=== PATIENT | female | born 1955 | race Caucasian/White ===

== ENCOUNTER → 2017-08-28 18:00 | Outpatient (REF) | payer OTHER, SELFPAY | LOC: LAB 18:00 | PROVIDERS: Visit Provider Podiatrist | DX: B35.1 Tinea unguium (principal) | CPT/HCPCS: 87102; 87206; 87220 ==

== ENCOUNTER → 2018-08-13 10:46 | Outpatient (POV) | payer OTHER, SELFPAY | PROVIDERS: Visit Provider Dermatology | DX: Z00.00 Encounter for general adult medical examination without abnormal findings (principal) ==

== ENCOUNTER → 2021-01-28 12:13 | Outpatient (CLI) | payer MEDICARE, SELFPAY | PROVIDERS: Visit Provider Internal Medicine Gastroenterology | DX: Z01.812 Encounter for preprocedural laboratory examination (principal); Z20.822 Contact with and (suspected) exposure to COVID-19; Z12.11 Encounter for screening for malignant neoplasm of colon | CPT/HCPCS: U0003 ==

== ENCOUNTER 2021-01-31 08:20 | Day surgery (SDC) | payer MEDICARE, SELFPAY ==
[2021-01-26 09:29] VITALS: BMI 32.9
[2021-01-31 08:47] VITALS: BP 147/69; PULSE 72; RESP 16; TEMP 36.6; O2SAT 96
--- NOTE | 2021-01-31 09:01 | P.PN_ITS ---
[facility] Anesthesia Checklist - Patient Identification Patient Identification: Arm Band - Structural Data Admitted From: Home Planned Operative Procedure/s: Colonoscopy Consent for Planned Operative Procedure(s) Verified: Yes - NPO Status Verified Time NPO: 00:00 - Airway Assessment C-Spine Mobility Assessed: Yes TMJ Mobility Assessed: Yes Dentition: Good Dentition - Neurological Assessment Level of Consciousness: Awake Hx Seizures: No Numbness or tingling in extremities: No - Anesthesia Plan Anesthesia Risk discussed: Yes Anesthesia Plan: Verified ASA Class: II Anesthesia Type: MAC [facility] History I have reviewed the patient's past medical history: Yes Medical History: Reports:: Gastroesophageal Reflux Disease(GERD), Hypertension Denies:: Anxiety, Asthma, Cancer, Chronic Obstructive Pulmonary Disease (COPD), Depression, Diabetes Mellitus Type 1, Diabetes Mellitus Type 2, Hyperlipidemia, Internal Pacemaker, MRSA, Renal Disease, Renal Insufficiency *Have you ever received a pneumonia vaccine?: No *Have you received a flu vaccine this season?: Yes Other Medical History: Reports: Arthritis. Denies: Hypothyroidism, Sinus Problems Anesthesia experience/problems:: None Laterality Cases: Left: Cataract, Bilateral: Arthroscopy Knee, Carpal Tunnel Release Other Surgeries: Yes: Tubal Ligation. No: Pacemaker Amputation: No Fractures: No - *Social History Smoking Status: Never smoker Alcohol Intake: never Alcohol Intake Frequency:: holidays/special occasions only Substance Use Type: denies use *Occupational Status:: retired Housing: house *Travel in the last 8 weeks: None - Psychiatric History Pschychiatric History:: Denies:: Anxiety, Depression Family Hx:: No significant family history
--- NOTE | 2021-01-31 09:46 | HMH.PROC ---
[facility] Procedure Note Procedure Note:: Colonoscopy Procedure Report: Colonoscopy with cold snare polypectomy Endoscopist: Adolfo Baker II, MD Referring physician: William Kelsey MD Date of Procedure: January 31, 2021 Equipment: Olympus 190 variable stiffness pediatric colonoscope Sedation: MAC sedation Indication: Mrs. Bedoya is a 65-year-old female who is here for screening/surveillance colonoscopy. The patient's father had advanced colon cancer in his early to mid seventies. The patient does report some chronic constipation/obstipation for which she takes stimulant laxatives (Dulcolax). She does get some right flank pain with this. She reports no change in bowel habits. She reports no rectal bleeding or weight loss. She does get some bloating. She also has some lower back pain and has had L4-L5 surgery. She had a prior bladder sling. She did have a normal colonoscopy with me in August 2003. She had a subsequent colonoscopy (Dr. Benito Godwin) in February 2012 that was also normal except for some diverticulosis. Procedure: Prior to the procedure, a history and physical exam was performed, and patient's medications and allergies were reviewed. The risks, benefits and alternatives of the sedation and procedure were discussed with the patient. All questions were answered and informed consent was obtained. The patient was brought to the procedure room. Patient identification and proposed procedure were verified by the physician and the nurse. The patient was placed in a left lateral decubitus position and the scope was passed under direct vision. Throughout the procedure, the patient's blood pressure, pulse, and oxygen saturations were monitored continuously. The colonoscopy was accomplished without difficulty. The patient tolerated the procedure well. Findings: On digital rectal examination there was normal rectal tone. There were no external hemorrhoids. The patient does have an anterior rectocele. The colonoscope was introduced through the anal canal to the rectum and advanced to the cecum. The ileocecal valve and appendiceal orifice were identified. The scope was advanced a short distance into the ileum which appeared grossly normal. The scope was then withdrawn into the colon. There were 3 colon polyps (ascending x2 (3 and 4 mm) and rectosigmoid x1 (4 mm)) which were removed via cold snare polypectomy. The remaining cecum, ascending and transverse colon and mucosa were grossly normal. There were scattered diverticuli throughout the descending and sigmoid colon (LEFT colon). The rectum itself was normal. Upon retroflexion within the rectum there were grade 1-2 internal hemorrhoids. The preparation was excellent throughout with [place] Preparation Score of 9. The cecal time was 12 minutes. Impression: 1. Colonic polyps x3 2. Left-sided diverticulosis 3. Grade 1-2 internal hemorrhoids 4. Anterior rectocele Plan: I will follow up the polyp pathology and recommend repeat colonoscopy again in 5-7 years based upon the polyp histology. I do feel that the patient most likely has outlet constipation/pelvic floor syndrome. I would continue laxative therapy and consider pelvic floor physical therapy.
[2021-01-31 09:50] VITALS: BP 106/61; PULSE 68; RESP 12; TEMP 36.9; O2SAT 92
[2021-01-31 10:00] VITALS: BP 116/71; PULSE 67; RESP 16; O2SAT 94
[2021-01-31 10:10] VITALS: BP 142/64; PULSE 75; RESP 16; O2SAT 96
[2021-01-31 10:20] VITALS: BP 141/93; PULSE 68; RESP 16; TEMP 36.9; O2SAT 98
[2021-01-31 15:14] VITALS: O2SAT 97
== END 2021-01-31 10:21 | disposition home or self-care (01) ==
LOC: OUTP 08:23
PROVIDERS: PCP Family Medicine; Visit Provider Internal Medicine Gastroenterology
PROC: 0DJD8ZZ Inspection of Lower Intestinal Tract, Via Natural or Artificial Opening Endoscopic (ICD-10-PCS; CPT 45378; principal; 2021-01-31 09:30)
DX: Z12.11 Encounter for screening for malignant neoplasm of colon (principal); N81.6 Rectocele; K63.5 Polyp of colon; K57.30 Diverticulosis of large intestine without perforation or abscess without bleeding; K64.0 First degree hemorrhoids; Z80.0 Family history of malignant neoplasm of digestive organs; I10 Essential (primary) hypertension; K21.9 Gastro-esophageal reflux disease without esophagitis; E03.9 Hypothyroidism, unspecified; M19.90 Unspecified osteoarthritis, unspecified site; Z88.1 Allergy status to other antibiotic agents; Z79.899 Other long term (current) drug therapy
CPT/HCPCS: 45385; 88305

== ENCOUNTER → 2021-03-14 09:48 | Outpatient (CLI) | payer MEDICARE, SELFPAY ==
--- NOTE | 2021-03-14 09:51 | MR_ITS ---
PROCEDURE: MR LUMBAR SPINE WO CON CLINICAL INDICATION: SPONDYLOSIS OF LUMBAR REGION Low back pain radiating into the right leg COMPARISON: CR LS5 LUMBAR SPINE 5 VIEWS from 09/26/2016 TECHNIQUE: Standard multiplanar multiecho sequences are performed without contrast. 3-D MIP and myelographic images are also rendered and reviewed FINDINGS: There is normal alignment. The spinal cord ends at the L2 level. L1-L2: Small anterior osteophytes with small anterior disc bulge. Minimal facet hypertrophic change. L2-L3: Mild facet hypertrophic change. L3-L4: Mild facet hypertrophic change right greater than left with bilateral lateral recess narrowing right greater than left. Borderline canal stenosis at this level. L4-5: Facet hypertrophy. With bilateral lateral recess narrowing. There is a small right foraminal disc osteophyte complex causing right-sided foraminal narrowing abutting the exiting L4 nerve root. L5-S1: Moderate facet hypertrophic change left greater than right with a small amount fluid in the left-sided facet joint with moderate left foraminal narrowing IMPRESSION: Multilevel lumbar spondylosis. Please see above for detailed description at each level No extruded herniated disc. Dictated by: Miguel Angel Matos MD 03/15/2021 09:17 Miguel Angel Matos MD in [place] 03/15/2021 09:17
== END ==
PROVIDERS: PCP Family Medicine; Visit Provider Family Medicine
DX: M47.816 Spondylosis without myelopathy or radiculopathy, lumbar region (principal)
CPT/HCPCS: 72148; 76376

== ENCOUNTER → 2021-06-06 10:50 | Outpatient (CLI) | payer MEDICARE, SELFPAY | PROVIDERS: Visit Provider Pain Medicine Interventional Pain Medicine | DX: Z01.812 Encounter for preprocedural laboratory examination (principal); Z11.52 Encounter for screening for COVID-19 | CPT/HCPCS: C9803; U0003; U0005 ==

== ENCOUNTER 2021-08-23 10:00 | Outpatient (RCR) | payer MEDICARE, SELFPAY | END 2021-08-23 10:05 | disposition home or self-care (01) | LOC: PT 10:00 | PROVIDERS: PCP Family Medicine; Visit Provider Anesthesiology Pain Medicine | DX: M54.50 Low back pain, unspecified (principal) | CPT/HCPCS: 97110; 97163 ==

== ENCOUNTER 2021-11-24 09:38 | Emergency (ER) | payer MEDICARE, SELFPAY ==
[2021-11-24 10:15] VITALS: BP 153/75; PULSE 65; RESP 18; TEMP 37; O2SAT 97; BMI 28.3
--- NOTE | 2021-11-24 10:43 | HMH.EDUTC ---
[facility] Disposition Clinical Impression: Vertigo Sinusitis Qualifiers: Sinusitis location: unspecified location Chronicity: unspecified Qualified Code(s): J32.9 - Chronic sinusitis, unspecified Disposition: Home, Self-Care Condition on Discharge: Good Instructions: Sinusitis, DI for Sinusitis, DI for Vertigo, Meclizine Additional Instructions: Make slow and steady movements, dangle feet and then stand slowly Take medication as prescribed Follow up immediately if no improvement or any worsening of symptoms Straight to ER if any life threatening symptoms, confusion or headache Return if needed Prescriptions: Meclizine HCl [Antivert 12.5mg tablet] 12.5 mg PO BID PRN #20 tab PRN Reason: Vertigo Transmission Status: Received by [id number] methylPREDNISolone [Medrol 4mg tab] 4 mg PO DIRECTED #21 tab Transmission Status: Received by [id number] Azithromycin [Z-Leopoldo 250mg Tab] 250 mg PO DIRECTED #6 tab Transmission Status: Received by [id number] Referrals: Andrey Kelsey MD [Primary Care Provider] - As needed Time of Disposition: 11:28 Medical Decision Making - Vitor Inquiry Pt receiving controlled substance: No Vitor was queried for this patient: No Vital Signs: 11/24/21 10:15 11/24/21 11:13 Temperature 98.6 F 98.6 F Temperature Source Oral Pulse Rate 65 Pulse Rate [Left Brachial] 65 Respiratory Rate 18 18 Blood Pressure 153/75 H Blood Pressure [Left Arm] 153/75 H Blood Pressure Mean [Left Arm] 101 Blood Pressure Source [Left Arm] Automatic Cuff Blood Pressure Position [Left Arm] Sitting 02 Sat by Pulse Oximetry 97 Oxygen Delivery Method Room Air Orders (Tests/Meds): ED MEDICATIONS Discontinued Medications Generic Name Dose Route Start Last Admin Trade Name Freq PRN Reason Stop Dose Admin Meclizine HCl 12.5 mg 11/24/21 10:46 11/24/21 10:52 Meclizine 12.5mg Tablet PO 11/24/21 10:47 12.5 mg ONCE ONE Administration Medical Decision Narrative: Discussed with patient about transfer to the ED for further work up and Ct Scan of head if needed and patient declined States that she wanted to try medication and see if that helps and she will return if no improvement Medication discussed and dosed per pharmacy Patient states that dizziness is much improved after medication and almost gone Patient verbalized understanding of strict return instructions [facility] HPI - General Stated complaint: dizziness, nausea Time Seen by Provider: 11/24/21 10:43 Mode of Arrival: Ambulatory Source of Information: Patient Limitations: No Limitations Description of Symptoms (Recalled from Triage Doc. by RN): PATIENT C/O DIZZINESS THAT HAS BEEN GOING ON FOR 3 DAYS. DENIES ANY HISTORY OF DIZZINESS. ALSO C/O WATERY EYES AND STATES SHE THOUGHT HER LEFT EAR WAS GOING TO HURT BUT IT NEVER DID. PATIENT VERY UNSTEADY WITH WALKING AT THIS TIME HEENT Symptoms (Recalled from RN notes): Yes Resp Symptoms (Recalled from RN notes): No Skin Symptoms (Recalled from RN notes): No MS Symptoms (Recalled from RN notes): No Functional Status (Recalled from RN notes): WNL - History of Present Illness Provider Complaint: Patient states that she has been having sinus congestion and pressure and pressure in her left ear State that she woke up about 3 days ago and as she was getting out of bed the room started spinning States that she felt like when she would move the room would spin around her and she would stagger States that after a little while it got better States that she took some sinus medication yesterday and she felt better but this morning she woke up feeling dizzy again and she hasnt taken anything Denies changes in vision denies headache - Related Data Home Medications Medication Instructions Recorded Confirmed bisoprolol 5 1 tab PO DAILY 90 Days tab 08/28/17 11/24/21 mg-hydrochlorothiazide 6.25 mg tablet Celecoxib 200 mg PO DAILY 01/26/21 11/24/21
[2021-11-24 11:13] VITALS: BP 153/75; PULSE 65; RESP 18; TEMP 37; O2SAT 97
== END 2021-11-24 11:33 | disposition home or self-care (01) ==
PROVIDERS: Emergency Provider Nurse Practitioner; PCP Family Medicine
DX: R42 Dizziness and giddiness (principal); J32.9 Chronic sinusitis, unspecified; Z79.899 Other long term (current) drug therapy; Z88.1 Allergy status to other antibiotic agents; Z88.8 Allergy status to other drugs, medicaments and biological substances
CPT/HCPCS: 99212; G0463

== ENCOUNTER → 2022-01-03 10:49 | Outpatient (CLI) | payer MEDICARE, SELFPAY ==
[2022-01-03 12:02] LABS: Chol/HDL Ratio 4.1 (1-3.5); Cholesterol 222 mg/dl (140-200); HDL Cholesterol 54 mg/dl (40-60); Triglycerides 142 mg/dl (30-150); VLDL Cholesterol 28 mg/dL (0-40)
[2022-01-03 12:13] LABS: Direct LDL Cholesterol 136.35 mg/dL (100-129)
[2022-01-04 09:36] LABS: Estradiol <5.0 pg/mL (.); FSH 57.1 mIU/mL (.)
[2022-01-07 00:10] LABS: Testosterone, Total, LC/MS 30.2 ng/dL (7.0-40.0); Testosterone,Free <0.2 pg/mL (0.0-4.2)
== END ==
PROVIDERS: PCP Family Medicine; Visit Provider Obstetrics & Gynecology
DX: N95.1 Menopausal and female climacteric states (principal); Z79.890 Hormone replacement therapy; Z79.899 Other long term (current) drug therapy
CPT/HCPCS: 36415; 80061; 82670; 83001; 84402; 84403; 86316

== ENCOUNTER → 2022-01-09 13:10 | Outpatient (CLI) | payer MEDICARE, OTHER, SELFPAY ==
--- NOTE | 2022-01-09 13:12 | US_ITS ---
FINAL REPORT TECHNIQUE: Transabdominal and transvaginal images of the pelvis were obtained. CLINICAL HISTORY: Postmenopausal bleeding FINDINGS: The uterus is normal in size. There is an 8 mm hyperechoic structure in the endometrium or inner myometrium that could represent an endometrial polyp or fibroid. The right ovary is unremarkable. The left ovary is unremarkable. There is no significant free fluid. IMPRESSION: 8 mm endometrial polyp versus fibroid. Reviewed, Interpreted and Dictated by Benito Bass III, MD Transcribed by Danyel Goldstein Authenticated and [facility]
== END ==
PROVIDERS: PCP Family Medicine; Visit Provider Obstetrics & Gynecology
DX: N95.0 Postmenopausal bleeding (principal)
CPT/HCPCS: 76830

== ENCOUNTER → 2022-01-18 14:35 | Outpatient (CLI) | payer MEDICARE, OTHER, SELFPAY ==
--- NOTE | 2022-01-18 14:41 | XR_ITS ---
PROCEDURE INFORMATION: Exam: XR Chest Exam date and time: 01/18/2022 2:47 PM Age: 66 years old Clinical indication: Screening exam; Pre-operative exam; Cardiovascular screening; Additional info: Myomectomy, post menopausal bleeding. TECHNIQUE: Imaging protocol: Radiologic exam of the chest. Views: 2 views. COMPARISON: CR CS5 CERVICAL SPINE 4 OR 5 VIEWS 09/26/2016 11:18 AM FINDINGS: Lungs: Scarring and calcified granulomas appear present in the lung bases. Pleural thickening of the lung apices. Pleural spaces: Unremarkable. No pleural effusion. No pneumothorax. Heart/Mediastinum: Unremarkable. No cardiomegaly. Bones/joints: Degenerative spondylosis and rotoscoliosis of thoracic spine. IMPRESSION: 1. Scarring and calcified granulomas within the lung bases. 2. No acute cardiopulmonary process is identified.
== END ==
PROVIDERS: PCP Obstetrics & Gynecology; Visit Provider Nurse Practitioner Family
DX: Z01.810 Encounter for preprocedural cardiovascular examination (principal)
CPT/HCPCS: 71046

== ENCOUNTER → 2022-12-05 12:47 | Outpatient (CLI) | payer MEDICARE, SELFPAY ==
--- NOTE | 2022-12-05 12:53 | XR_ITS ---
FINAL REPORT CLINICAL HISTORY: rt shoulder pain/burning, fell may 2022, shoulder catches FINDINGS: 3 views of the right shoulder were obtained. There is no acute fracture or dislocation. There are mild degenerative changes of the acromioclavicular and glenohumeral joints. There are no soft tissue abnormalities. IMPRESSION: No acute process. Reviewed, Interpreted and Dictated by Benito Bass III, MD Transcribed by Danyel Goldstein Authenticated and [facility]
== END ==
PROVIDERS: PCP Family Medicine; Visit Provider Orthopaedic Surgery
DX: M25.511 Pain in right shoulder (principal)
CPT/HCPCS: 73030

== ENCOUNTER 2023-10-25 08:38 | Outpatient (CLI) | payer MEDICARE, SELFPAY ==
--- NOTE | 2023-10-25 08:45 | XR_ITS ---
FINAL REPORT CLINICAL HISTORY: POST MENOPAUSAL COMPARISON: None FINDINGS: Using L1-4, the bone mineral density of the spine is 1.204 g/cm2, corresponding to T-score of 1.4. Using the left hip, the bone mineral density of the femoral neck is 0.902 g/cm2, corresponding to a T-score of -1.0. Using the right hip, the bone mineral density of the femoral neck is 0.822 g/cm?, corresponding to a T-score of -0.2. NOTE: T-score: Standard deviation compared with peak bone mass of young adult mean. *Following the recommendations of the International Society of Bone densitometry, classification of hip BMD is based on the lower of two T-scores; total hip or femoral neck. IMPRESSION: Normal bone mineral density of the lumbar spine and the right hip. Diminished bone mineral density of the left hip consistent with osteopenia. Reviewed, Interpreted and Dictated by Morales Snow MD Transcribed by Dolly Luis Authenticated and [facility]
--- NOTE | 2023-10-25 09:14 | XR_ITS ---
FINAL REPORT CLINICAL HISTORY: Left knee pain COMPARISON: None FINDINGS: LEFT KNEE 3 views of the left knee were obtained. There is no acute fracture or dislocation. There is moderate to severe tricompartmental degenerative change. There is no joint effusion. Soft tissues are unremarkable. IMPRESSION: Moderate to severe degenerative changes without acute bony abnormality. Reviewed, Interpreted and Dictated by Morales Snow MD Transcribed by Dayana Quevedo Authenticated and . [facility]
--- NOTE | 2023-10-25 09:14 | XR_ITS ---
FINAL REPORT CLINICAL HISTORY: Right 9 knee pain COMPARISON: None FINDINGS: RIGHT KNEE 3 views of the right knee were obtained. There is no acute fracture or dislocation. There is moderate to severe tricompartmental degenerative change. There is no joint effusion. Soft tissues are unremarkable. IMPRESSION: Moderate to severe degenerative changes without acute bony abnormality. Reviewed, Interpreted and Dictated by Morales Snow MD Transcribed by Dayana Quevedo Authenticated and [facility]
== END 2023-10-25 23:59 | disposition home or self-care (01) ==
LOC: RAD 08:39
PROVIDERS: PCP Nurse Practitioner Family; Visit Provider Nurse Practitioner Family
DX: M85.89 Other specified disorders of bone density and structure, multiple sites (principal); M25.562 Pain in left knee; M25.561 Pain in right knee
CPT/HCPCS: 73562; 77080

== ENCOUNTER 2024-06-16 09:53 | Outpatient (POV) | payer MEDICARE, SELFPAY ==
[2024-06-16 10:25] VITALS: BP 183/87; PULSE 85; RESP 18; O2SAT 97; BMI 33.5
--- NOTE | 2024-06-16 10:55 | EXP.PAIN.OV ---
HPI Data of Consult Patient: new to practice Consult date: 06/16/24 Requesting Physician: Gail Cole APRN Primary Care Provider: Andrey Kelsey MD Consult Narrative Reason for consult: Low back pain, bilateral leg pain, bilateral knee pain History of present illness: Ms. Bedoya is a 68 year old female who presents today as a new patient. She is a referral from Dr. Aparicio's office. Today she rates her pain a 6 out of 10. Patient states she has chronic pain throughout her low back that does radiate into her bilateral lower extremities as well as her bilateral knees. Patient states that the low back pain is gone on since 20 years plus and that her knee pain has even gone on since she was around 11 with 1 side. Patient does describe her pain as a chronic aching, sharp sensation that does radiate down primarily on the right side all the way to her foot and that the left side does some. Patient states the pain is much worse with any type of standing for prolonged periods or walking. She states she has to frequently stop and take multiple breaks. Patient states that at Thanksgiving trying to cook caused huge amounts of pain. She states that it is interfering with her ability perform activities of daily living such as cooking and cleaning. Patient has tried conservative therapy including oral medications, ibuprofen 800 mg twice daily, heat and ice, topicals and continued at home stretching exercise for longer than 12 weeks that was physician guided from a physical therapist. She states that the physical therapy and chiropractor therapy never seem to make any additional improvement. Patient states that she is seeing Dr. Chester Cole for her knee pain and is getting injections that last about 2 months and do really help. Patient states she has had back injections in the past back in about 2021 with a provider in [place] and that they did really help and over time she did not need any. She states that when the pain started back she knew she could go back to this provider however she does not like driving to [place]. Patient is interested in injections because they have done so remarkably well for her in the past. Her Vitor has been reviewed and is appropriate. CC: Gail Cole APRN [facility] Disclaimer: The information contained in this section may have been updated after the patient was seen, as this information can be updated by other users. Social History Smoking Status: Never smoker alcohol intake: never counseling provided: none substance use type: denies use current occupational status: other Travel in the last 8 weeks: None housing: house current occupational exposures/hazards: No caffeine: Yes Review of Systems Review of Systems Review of systems:: pertinent systems reviewed and negative unless documented below Review of systems (narrative): Review of Systems: General: No recent weight changes, no fever, no sleep disturbances Respiratory: No cough, no shortness of air, no recurring pulmonary infections Cardiovascular/peripheral vascular: No chest pain, no palpitations, no edema, no shortness of breath Gastrointestinal: No new onset incontinence, normal bowel movements reported Genitourinary: No new onset incontinence Musculoskeletal: Low back pain, bilateral leg pain, bilateral knee pain Psychiatric: [Normal mood/affect] Neurological: [Denies weakness in extremities], [denies balance issues] Meds Home Medications and Allergies Home Medications ?Medication ?Instructions ?Recorded ?Confirmed ?Type biotin 1,000 mcg chewable tablet 1,000 mcg PO DAILY 12/07/22 06/12/24 History diclofenac sodium 1 % topical gel 2 g topical QID #100 grams 12/07/22 06/12/24 Rx (Voltaren Arthritis Pain) escitalopram oxalate 10 mg tablet 10 mg PO DAILY 12/07/22 06/12/24 History hydrochlorothiazide 12.5 mg tablet 12.5 mg PO DAILY 12/07/22 06/12/24 History magnesium citrate 100 mg tablet 100 mg PO DAILY 12/07/22 06/12/24 History rosuvastatin 5 mg tablet 5 mg PO DAILY 12/07/22 06/12/24 History valsartan 80 mg tablet 80 mg PO BID 12/07/22 06/12/24 History vitamin E (dl, acetate) 180 mg 180 mg PO DAILY 12/07/22 06/12/24 History (400 unit) capsule sod picosulf 10 mg-magnes 3.5 175 ml PO DAILY 2 doses #350 mL 01/22/24 06/12/24 Rx gram-citric 12 gram/175 mL oral solution (Clenpiq) ibuprofen 800 mg tablet 800 mg PO TID OA pain #90 tabs 06/12/24 06/12/24 Rx New Prescriptions to Start Prescriptions: Allergies Allergy/AdvReac Type Severity Reaction Status Date / Time ampicillin Allergy Verified 03/18/24 10:30 naproxen (From Naprosyn) Allergy Verified 03/18/24 10:30 Objective Narrative: Physical Exam: General: Alert and oriented x3, no acute distress, pleasant and cooperative Lungs: Respirations even and unlabored, symmetrical chest expansion Eyes: PERRL Musculoskeletal: Flexion and extension of lumbar [spine] somewhat guarded secondary to pain, [antalgic gait noted] positive left leg raise Neurological: Speech clear, no gross sensory deficit Additional findings Additional findings: FINDINGS: There is normal alignment. The spinal cord ends at the L2 level. L1-L2: Small anterior osteophytes with small anterior disc bulge. Minimal facet hypertrophic change. L2-L3: Mild facet hypertrophic change. L3-L4: Mild facet hypertrophic change right greater than left with bilateral lateral recess narrowing right greater than left. Borderline canal stenosis at this level. L4-5: Facet hypertrophy. With bilateral lateral recess narrowing. There is a small right foraminal disc osteophyte complex causing right-sided foraminal narrowing abutting the exiting L4 nerve root. L5-S1: Moderate facet hypertrophic change left greater than right with a small amount fluid in the left-sided facet joint with moderate left foraminal narrowing IMPRESSION: Multilevel lumbar spondylosis. Please see above for detailed description at each level No extruded herniated disc. Dictated by: Miguel Angel Matos MD 03/15/2021 09:17 Miguel Angel Matos MD in [place] 03/15/2021 09:17 Assessment and Plan *Assessment and plan (1) Osteoarthritis of left knee: Status: Acute Qualifiers: Osteoarthritis type: primary Qualified Code(s): M17.12 - Unilateral primary osteoarthritis, left knee Category: Medical Code(s): M17.12 - Unilateral primary osteoarthritis, left knee (2) Osteoarthritis of right knee: Status: Acute Qualifiers: Osteoarthritis type: primary Qualified Code(s): M17.11 - Unilateral primary osteoarthritis, right knee Category: Medical Code(s): M17.11 - Unilateral primary osteoarthritis, right knee Plan Patient is experiencing significant pain throughout her low back with radiating symptoms down into her bilateral lower extremities. Patient did have limited range of motion of her lumbar spine with a positive left leg raise. I did review over her MRI findings and did discuss that I do believe she would benefit from a lumbar epidural steroid injection. Risk and benefits were discussed with patient and she would like to proceed forward with this plan of care. Patient has tried and failed conservative therapy including oral medication, heat and ice, topicals, prior physical therapy and chiropractor therapy as well as continued at home stretching exercise for longer than 12 weeks that was physician guided. Patient is not on any blood thinners. I will order the patient a compounded cream. Patient will be scheduled for an LESI L4-L5 under fluoroscopy. Patient has been instructed to contact the clinic with any concerns before the next appointment. Dr. Bucio has reviewed this note and agrees with this plan of care. This note was dictated using voice recognition software and make contain errors or omissions. All injections are used with Lidocaine, Bupivacaine and Depo Medrol. Occasionally urine drug screen is needed to verify patient's compliance with our office pain contract. This is ordered based off specific treatments related to chronic pain with the potential to abuse certain medications.
== END 2024-06-16 23:59 | disposition home or self-care (01) ==
LOC: SC.PAIN 09:54
PROVIDERS: PCP Family Medicine; Visit Provider Nurse Practitioner Family
DX: M17.0 Bilateral primary osteoarthritis of knee (principal); Z73.89 Other problems related to life management difficulty
CPT/HCPCS: 99202; G0463

== ENCOUNTER 2024-07-02 12:31 | Outpatient (CLI) | payer MEDICARE, SELFPAY ==
--- NOTE | 2024-07-02 | CA_ITS ---
FINAL REPORT CLINICAL HISTORY: Claudication, Osteoarthritis multiple sciatic cortisone injections., HTN, Borderline Diabetic COMPARISON: None FINDINGS: BILATERAL LOWER EXTREMITY DUPLEX DOPPLER Color Doppler and duplex Doppler of the bilateral lower extremity was performed. Spectral analysis was also performed. Velocities were measured at multiple levels. All velocities are in centimeters per second. RIGHT COACH TOUR DRIVER: 175 Prof: 126 SFA Prox: 148 SFA Mid: 91 SFA Distal: 60 FLOTATION TANK OPERATOR Mid: 116 FLOTATION TANK OPERATOR Dist: 99 Per Prox: 55 CIERRA mid: 91 Moderate plaque disease of the common femoral artery with less than 40% stenosis. Waveforms are biphasic and triphasic. LEFT COACH TOUR DRIVER: 94 Prof: 67 SFA Prox: 114 SFA Mid: 71 SFA Distal: 74 FLOTATION TANK OPERATOR Mid: 77 FLOTATION TANK OPERATOR Dist: 101 Per Prox: 68 CIERRA: 82 Moderate plaque disease of the common femoral artery with less than 50% stenosis. Waveforms are biphasic and triphasic IMPRESSION: Biphasic and triphasic waveforms. 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 Reviewed, Interpreted and Dictated by Italo Spence MD Transcribed by Dayana Quevedo Authenticated and [facility]
--- NOTE | 2024-07-02 13:20 | US_ITS ---
FINAL REPORT CLINICAL HISTORY: CLAUDICATION ABD BACK WALL COMP BILAT COMPARISON: None FINDINGS: RENAL ULTRASOUND The right kidney measures 9.2 cm in length. There is a small anechoic structure in the right kidney measuring 1.3 cm probably due to a benign cyst. The left kidney measures 11.3, which is unremarkable. There are some incidentally noted granulomas in spleen. IMPRESSION: Probable benign cyst in the right kidney. Reviewed, Interpreted and Dictated by Italo Spence MD Transcribed by Humaira Gan Authenticated and [facility]
== END 2024-07-02 23:59 | disposition home or self-care (01) ==
PROVIDERS: PCP Nurse Practitioner Family; Visit Provider Nurse Practitioner Family
DX: I73.9 Peripheral vascular disease, unspecified (principal); N28.1 Cyst of kidney, acquired; I10 Essential (primary) hypertension
CPT/HCPCS: 76770; 93925

== ENCOUNTER 2024-07-29 09:39 | Outpatient (CLI) | payer MEDICARE, SELFPAY ==
--- NOTE | 2024-07-29 | CA_ITS ---
FINAL REPORT TECHNIQUE: Ultrasound images of the kidneys were obtained. Duplex Doppler of the renal arteries, RAR and RI also obtained. Spectral analysis was performed. CLINICAL HISTORY: HTN COMPARISON: None FINDINGS: Limited images of the liver parenchyma demonstrate normal echogenicity. The right kidney measures 10.3 cm in length. It is normal echogenicity. There is no hydronephrosis. RI is 0.69-0.72. The renal artery/aortic ratio: 1.7. The left kidney measures 10.2 cm in length. It is normal echogenicity. There is no hydronephrosis. RI is 0.70-0.73. The renal artery/aortic ratio: 1.8. IMPRESSION: Normal renal ultrasound. Normal RI bilaterally. Reviewed, Interpreted and Dictated by Italo Spence MD Transcribed by Dolly Luis Authenticated and [facility]
--- NOTE | 2024-07-29 | CA_ITS ---
FINAL REPORT CLINICAL HISTORY: HTN, HLD, dizziness occasionally. COMPARISON: None FINDINGS: Color Doppler, duplex Doppler and allison scale sonography of the bilateral neck arterial vasculature was performed. Velocities were measured in the carotid arteries. Stenosis evaluation based on the validated velocity criteria. The peak systolic velocity of the right common carotid artery is 85.5 cm/s. The peak systolic velocity of the right internal carotid artery is 125.6 cm/s and end diastolic velocity 33.3 cm/s. The ICA/CCA ratio is 1.48. A mild amount of plaque is present. The right external carotid artery is patent. The right vertebral artery is patent with antegrade flow. The peak systolic velocity of the left common carotid artery is 90.3 cm/s. The peak systolic velocity of the left internal carotid artery is 113.7 cm/s and end diastolic velocity 42.8 cm/s. The ICA/CCA ratio is 1.29. A mild amount of plaque is present. The left external carotid artery is patent. The left vertebral artery is patent with antegrade flow. IMPRESSION: Less than 50% bilateral carotid stenoses. Bilateral patent vertebral arteries with antegrade flow. Reviewed, Interpreted and Dictated by Italo Spence MD Transcribed by Humaira Gan Authenticated and [facility]
== END 2024-07-29 23:59 | disposition home or self-care (01) ==
LOC: RT 09:40
PROVIDERS: PCP Nurse Practitioner Family; Visit Provider Nurse Practitioner Family
DX: I10 Essential (primary) hypertension (principal); R42 Dizziness and giddiness
CPT/HCPCS: 93880; 93976

== ENCOUNTER 2024-10-09 13:44 | Outpatient (POV) | payer MEDICARE, SELFPAY ==
--- OUTSIDE RECORDS SUMMARY | 2024-10-09 13:46 | XMS_ITS ---
Author Organization Unknown Medications Date Medication Dosage DosageUnit StartDate StopDate StopReason Active DoseQuantity DoseUnit Dispense DispenseUnit Refills NdcCode DrugCode PharmacyId IsPrescription MappedMedication Srcstatus 07/24 00:00 :00 Aspirin 81 MG Tablet Delayed Release 0 [id number] 474 Not Taking 06/26 00:00 :00 Aspirin 81 MG Tablet Delayed Release 0 [id number] 474 Not Taking 01/19 00:00 :00 Aspirin 81 MG Tablet Delayed Release 0 [id number] 474 Not Taking 11/25 00:00 :00 Aspirin 81 MG Tablet Delayed Release 1 [id number] 474 Taking 06/15 00:00 :00 ASPIRIN 81 mg delayed release tablet 1 [id number] 998 Taking 07/24 00:00 :00 Bisoprolol- hydroCHLORO thiazide 5-6.25 MG Tablet 0 180 Tablet 3 [id number] 201 P Not Taking 06/26 00:00 :00 Bisoprolol- hydroCHLORO thiazide 5-6.25 MG Tablet 0 180 Tablet 3 [id number] 201 P Not Taking 01/19 00:00 :00 Bisoprolol- hydroCHLORO thiazide 5-6.25 MG Tablet 0 180 Tablet 3 [id number] 201 P Not Taking 11/25 00:00 :00 Bisoprolol- hydroCHLORO thiazide 5-6.25 MG Tablet 0 180 Tablet 3 [id number] 201 P Not Taking 06/15 00:00 :00 BISOPROLOL- HYDROCHLORO THIAZIDE 5-6.25M G tablet 0 180 Tablet 3 [id number] 201 P Not Taking 06/15 00:00 :00 BUSPIRONE 10 mg tablet 1 60 [id number] 6 805 Taking 07/24 00:00 :00 busPIRone HCl 10 MG Tablet 0 60 [id number] 5 401 Not Taking 06/26 00:00 :00 busPIRone HCl 10 MG Tablet 0 60 [id number] 5 401 Not Taking 01/19 00:00 :00 busPIRone HCl 10 MG Tablet 0 60 [id number] 5 401 Not Taking 11/25 00:00 :00 busPIRone HCl 10 MG Tablet 1 60 [id number] 5 401 Taking 11/25 00:00 :00 Cefdinir 300 MG Capsule 06/15/2022 00:00:00 1 14 Capsule 0 [id number] 006 P Start 06/15 00:00 :00 CEFDINIR 300 mg capsule 06/15/2022 00:00:00 1 14 Capsule 0 [id number] 120 P Start 07/24 00:00 :00 Celecoxib 200 MG Capsule 1 30 Capsule 1 [id number] 601 Taking 06/26 00:00 :00 Celecoxib 200 MG Capsule 1 30 Capsule 1 [id number] 601 Taking 01/19 00:00 :00 Celecoxib 200 MG Capsule 1 30 Capsule 1 [id number] 601 Taking 11/25 00:00 :00 Celecoxib 200 MG Capsule 1 30 Capsule 1 [id number] 601 Taking 06/15 00:00 :00 CELECOXIB 200 mg capsule 1 30 Capsule 1 [id number] 601 Taking 11/07 00:00 :00 CELECOXIB 200 mg capsule 1 30 Capsule 1 [id number] 601 Start 11/07 00:00 :00 CELECOXIB 200 mg capsule 0 30 Capsule 1 [id number] 601 Stop 11/07 00:00 :00 CELECOXIB 200 mg capsule 1 30 Capsule [id number] 601 Continue 06/15 00:00 :00 DEXTROMETHO RPHAN-PROME THAZINE 15 mg-6.25 mg/5 mL syrup 06/15/2022 00:00:00 1 473 mL 0 [id number] 5 542 P Start 07/24 00:00 :00 Doxycycline Hyclate 100 MG Capsule 07/24/2023 00:00:00 1 20 Capsule [id number] 250 P Start 07/24 00:00 :00 Doxycycline Hyclate 100 MG Capsule 06/26/2023 00:00:00 1 20 Capsule [id number] 250 P Taking 06/26 00:00 :00 Doxycycline Hyclate 100 MG Capsule 06/26/2023 00:00:00 1 20 Capsule [id number] 250 P Start 06/15 00:00 :00 ESCITALOPRA M 10 mg tablet 1 30 [id number] 5 090 Taking 07/24 00:00 :00 Escitalopra m Oxalate 10 MG Tablet 1 30 009 11249 661 Taking 06/26 00:00 :00 Escitalopra m Oxalate 10 MG Tablet 1 30 009 38694 661 Taking 01/19 00:00 :00 Escitalopra m Oxalate 10 MG Tablet 1 30 009 03658 661 Taking 11/25 00:00 :00 Escitalopra m Oxalate 10 MG Tablet 1 30 009 15291 661 Taking 07/24 00:00 :00 Eucrisa 2 % Ointment 08/24/2021 00:00:00 0 60 grams 0 [id number] 21 111 P Not Taking 06/26 00:00 :00 Eucrisa 2 % Ointment 08/24/2021 00:00:00 0 60 grams 0 [id number] 21 111 P Not Taking 01/19 00:00 :00 Eucrisa 2 % Ointment 08/24/2021 00:00:00 0 60 grams 0 [id number] 21 111 P Not Taking 11/25 00:00 :00 Eucrisa 2 % Ointment 08/24/2021 00:00:00 0 60 grams 0 [id number] 21 111 P Not Taking 06/15 00:00 :00 EUCRISA 2% ointment 08/24/2021 00:00:00 0 60 grams 0 [id number] 21 121 P Not Taking 07/24 00:00 :00 Fluconazole 150 MG Tablet 08/24/2021 00:00:00 0 1 0 [id number] 9 210 P Not Taking 06/26 00:00 :00 Fluconazole 150 MG Tablet 08/24/2021 00:00:00 0 1 0 [id number] 9 210 P Not Taking 01/19 00:00 :00 Fluconazole 150 MG Tablet 08/24/2021 00:00:00 0 1 0 [id number] 9 210 P Not Taking 11/25 00:00 :00 Fluconazole 150 MG Tablet 08/24/2021 00:00:00 0 1 0 [id number] 9 210 P Not Taking 06/15 00:00 :00 FLUCONAZOLE 150 mg tablet 08/24/2021 00:00:00 0 1 0 [id number] 0 979 P Not Taking 07/24 00:00 :00 Gabapentin 100 MG Capsule 03/17/2021 00:00:00 0 90 [id number] 6 561 P Not Taking 06/26 00:00 :00 Gabapentin 100 MG Capsule 03/17/2021 00:00:00 0 90 [id number] 6 561 P Not Taking 01/19 00:00 :00 Gabapentin 100 MG Capsule 03/17/2021 00:00:00 0 90 [id number] 6 561 P Not Taking 11/25 00:00 :00 Gabapentin 100 MG Capsule 03/17/2021 00:00:00 0 90 [id number] 6 561 P Not Taking 06/15 00:00 :00 GABAPENTIN 100 mg capsule 03/17/2021 00:00:00 0 90 [id number] 6 561 P Not Taking 07/24 00:00 :00 hydroCHLORO thiazide 12.5 MG Capsule 1 30 0 [id number] 701 Taking 06/26 00:00 :00 hydroCHLORO thiazide 12.5 MG Capsule 1 30 0 [id number] 701 Taking 01/19 00:00 :00 hydroCHLORO thiazide 12.5 MG Capsule 1 30 0 [id number] 701 Taking 11/25 00:00 :00 hydroCHLORO thiazide 12.5 MG Capsule 1 30 0 [id number] 701 Taking 06/15 00:00 :00 HYDROCHLORO THIAZIDE 12.5 mg capsule 1 30 7 [id number] 690 Taking 07/24 00:00 :00 HYDROcodone Bit-Homatro p MBr 5-1.5 MG/5ML Solution 07/24/2023 00:00:00 1 180 ml 0 [id number] 5 016 P Unknown Status 07/24 00:00 :00 HYDROcodone Bit-Homatro p MBr 5-1.5 MG/5ML Solution 06/27/2023 00:00:00 1 180 ml 0 [id number] 5 016 P Taking 06/27 00:00 :00 HYDROcodone Bit-Homatro p MBr 5-1.5 MG/5ML Solution 06/27/2023 00:00:00 1 180 ml 0 [id number] 5 016 P Unknown Status 06/26 00:00 :00 HYDROcodone Bit-Homatro p MBr 5-1.5 MG/5ML Solution 06/26/2023 00:00:00 1 180 ml 0 [id number] 5 016 P Start 07/24 00:00 :00 Lansoprazol e 30 MG Capsule Delayed Release 1 30 [id number] 156 Taking 06/26 00:00 :00 Lansoprazol e 30 MG Capsule Delayed Release 1 30 [id number] 156 Taking 01/19 00:00 :00 Lansoprazol e 30 MG Capsule Delayed Release 1 30 [id number] 156 Taking 11/25 00:00 :00 Lansoprazol e 30 MG Capsule Delayed Release 1 30 [id number] 156 Taking 06/15 00:00 :00 LANSOPRAZOL E 30 mg delayed release capsule 1 30 [id number] 790 Taking 07/24 00:00 :00 Magnesium 100 MG Tablet 1 Taking 06/26 00:00 :00 Magnesium 100 MG Tablet 1 Taking 01/19 00:00 :00 Magnesium 100 MG Tablet 1 Taking 06/26 00:00 :00 Medrol 4 MG Tablet Therapy Pack 01/19/2023 00:00:00 0 1 0 [id number] 5 604 P Discontinu ed 01/19 00:00 :00 Medrol 4 MG Tablet Therapy Pack 01/19/2023 00:00:00 1 1 0 [id number] 5 604 P Start 06/15 00:00 :00 MEDROL DOSEPAK 4 mg tablet 08/24/2021 00:00:00 0 1 0 [id number] 5 604 P Discontinu ed 06/15 00:00 :00 MEDROL DOSEPAK 4 mg tablet 02/11/2021 00:00:00 0 1 0 [id number] 5 604 P Discontinu ed 07/24 00:00 :00 Metamucil 0 No t Taking 06/26 00:00 :00 Metamucil 0 No t Taking 01/19 00:00 :00 Metamucil 0 No t Taking 11/25 00:00 :00 Metamucil 0 No t Taking 06/15 00:00 :00 METAMUCIL 0 [id number] 083 Not Taking 07/24 00:00 :00 MiraLax 0 Not Taking 06/26 00:00 :00 MiraLax 0 Not Taking 01/19 00:00 :00 MiraLax 0 Not Taking 11/25 00:00 :00 MiraLax 0 Not Taking 06/15 00:00 :00 MIRALAX 0 Not Taking 07/24 00:00 :00 predniSONE 10 MG Tablet 07/24/2023 00:00:00 1 30 [id number] 1 720 P Start 06/15 00:00 :00 PREDNISONE 5 mg tablet 03/14/2021 00:00:00 0 15 [id number] 5 840 P Discontinu ed 06/26 00:00 :00 Promethazin e-Codeine 6.25-10 MG/5ML Syrup 06/26/2023 00:00:00 00:00:00 0 180 ml [id number] 405 Stop 06/26 00:00 :00 Promethazin e-Codeine 6.25-10 MG/5ML Syrup 06/26/2023 00:00:00 1 180 ml [id number] 0 405 P Unknown Status 06/26 00:00 :00 Promethazin e-Codeine 6.25-10 MG/5ML Syrup 06/26/2023 00:00:00 0 180 ml [id number] 8 616 P Stop 11/25 00:00 :00 Promethazin e-DM 6.25-15 MG/5ML Syrup 06/15/2022 00:00:00 1 473 mL 0 [id number] 0 405 P Start 06/15 00:00 :00 ROSUVASTATI N 5 mg tablet 1 30 [id number] 1 790 Taking 07/24 00:00 :00 Rosuvastati n Calcium 5 MG Tablet 1 30 009 88488 861 Taking 06/26 00:00 :00 Rosuvastati n Calcium 5 MG Tablet 1 30 009 69651 861 Taking 01/19 00:00 :00 Rosuvastati n Calcium 5 MG Tablet 1 30 64899 861 Taking 11/25 00:00 :00 Rosuvastati n Calcium 5 MG Tablet 1 30 45552 861 Taking 06/15 00:00 :00 TERBINAFINE 250 mg tablet 1 42 7628 2020 930 Taking 07/24 00:00 :00 Terbinafine HCl 250 MG Tablet 0 42 [id number] 79 501 Not Taking 06/26 00:00 :00 Terbinafine HCl 250 MG Tablet 0 42 [id number] 79 501 Not Taking 01/19 00:00 :00 Terbinafine HCl 250 MG Tablet 0 42 958747 79 501 Not Taking 11/25 00:00 :00 Terbinafine HCl 250 MG Tablet 1 42 168759 79 501 Taking 07/24 00:00 :00 Valsartan 80 MG Tablet 1 30 [id number] 1 377 Taking 06/26 00:00 :00 Valsartan 80 MG Tablet 1 30 [id number] 1 377 Taking 01/19 00:00 :00 Valsartan 80 MG Tablet 1 30 [id number] 1 377 Taking 11/25 00:00 :00 Valsartan 80 MG Tablet 1 30 [id number] 1 377 Taking 06/15 00:00 :00 VALSARTAN 80 mg tablet 1 30 [id number] 7 709 Taking 07/24 00:00 :00 Vitamin E 180 MG Capsule 1 30 03225 560 44 Taking 07/24 00:00 :00 Vitamin E 400 UNIT Capsule 0 [id number] 812 Not Taking 06/26 00:00 :00 Vitamin E 180 MG Capsule 1 30 23450 560 44 Taking 06/26 00:00 :00 Vitamin E 400 UNIT Capsule 0 [id number] 812 Not Taking 01/19 00:00 :00 Vitamin E 180 MG Capsule 1 30 14134 560 44 Taking 01/19 00:00 :00 Vitamin E 400 UNIT Capsule 0 [id number] 812 Not Taking 11/25 00:00 :00 Vitamin E 400 UNIT Capsule 0 [id number] 812 Not Taking 06/15 00:00 :00 VITAMIN E 400 intl units capsule 0 43492285 540 Not Taking
--- NOTE | 2024-10-09 14:19 | EXP.PAIN.SOA ---
[facility] Disclaimer: The information contained in this section may have been updated after the patient was seen, as this information can be updated by other users. Medical History HLD (hyperlipidemia) HTN (hypertension) Vitamin E deficiency Surgical History History of arthroscopic knee surgery Family History Other Unknown family medical history Social History Smoking Status: Never smoker alcohol intake: current alcohol intake frequency: holidays/special occasions only counseling provided: none substance use type: denies use current occupational status: retired Travel in the last 8 weeks: None housing: house current occupational exposures/hazards: No caffeine: Yes PM Subjective & Objective Subjective Subjective:: Patient is a pleasant 68-year-old female who presents today for worsening bilateral knee pain. Today she rates her pain an 8 out of 10. Patient has not been seen in our office since around May. At that time we were seeing her for increased low back and leg symptoms. Patient had been scheduled for a lumbar epidural however initially had to reschedule this and then ended up having improvement and canceled it altogether afterwards. Patient states that overall her back has been doing okay and it is just her knees giving her increased pain. Patient denies any new injuries or trauma. She describes it as a constant aching, throbbing sensation that is worse with increased activity or movement. Patient does state that she has recently in the last couple of weeks had bilateral intra-articular injections with Chester Cole here at [facility] however it did nothing. Patient states she still has the chronic pain and did want to see if there was something we could do additionally. Patient was prescribed compounded cream at our last visit however she states she did not notice significant relief. Her Vitor has been reviewed and is appropriate. Review of Systems: General: No recent weight changes, no fever, no sleep disturbances Respiratory: No cough, no shortness of air, no recurring pulmonary infections Cardiovascular/peripheral vascular: No chest pain, no palpitations, no edema, no shortness of breath Gastrointestinal: No new onset incontinence, normal bowel movements reported Genitourinary: No new onset incontinence Musculoskeletal: Bilateral knee pain Psychiatric: [Normal mood/affect] Neurological: [Denies weakness in extremities], [denies balance issues] Pain at rest (0-10 scale): 8 Objective Objective:: Physical Exam: General: Alert and oriented x3, no acute distress, pleasant and cooperative Lungs: Respirations even and unlabored, symmetrical chest expansion Eyes: PERRL Musculoskeletal: Flexion and extension of bilateral knees somewhat guarded secondary to pain, [antalgic gait noted] Neurological: Speech clear, no gross sensory deficit Has patient had previous pain injection?: No Conservative treatment options previously tried: Home exercise plan Length of treatment: Longer than 12 weeks Meds Home Medications and Allergies Home Medications ?Medication ?Instructions ?Recorded ?Confirmed ?Type escitalopram oxalate 10 mg tablet 10 mg PO DAILY 12/07/22 09/23/24 History hydrochlorothiazide 12.5 mg tablet 12.5 mg PO DAILY 12/07/22 09/23/24 History vitamin E (dl, acetate) 180 mg 180 mg PO DAILY 12/07/22 09/23/24 History (400 unit) capsule ibuprofen 800 mg tablet 800 mg PO TID OA pain #90 tabs 06/12/24 09/23/24 Rx calcium 315 mg (as 1 tab PO DAILY 09/23/24 09/23/24 History citrate)-vitamin D3 5 mcg (200 unit) tablet (Calcium Citrate + D) digestive enzymes 1 cap PO DAILY 09/23/24 09/23/24 History docusate sodium 100 mg capsule 100 mg PO DAILY PRN 09/23/24 09/23/24 History (Dulcolax Stool Softener (docusate)) lansoprazole 30 mg capsule,delayed 30 mg PO DAILY 09/23/24 09/23/24 History release linaclotide 290 mcg capsule 290 mcg PO DAILY #30 caps 09/23/24 09/23/24 Rx (Linzess) psyllium husk 0.4 gram capsule 0.8 g PO DAILY 09/23/24 09/23/24 History (Metamucil) rosuvastatin 20 mg tablet 20 mg PO DAILY 09/23/24 09/23/24 History trazodone 50 mg tablet 50 mg PO HS 09/23/24 09/23/24 History valsartan 160 mg tablet 160 mg PO DAILY 09/23/24 09/23/24 History New Prescriptions to Start Prescriptions: Allergies Allergy/AdvReac Type Severity Reaction Status Date / Time ampicillin Allergy Verified 09/23/24 11:07 naproxen (From Naprosyn) Allergy Verified 09/23/24 11:07 Assessment and Plan *Assessment and plan (1) Osteoarthritis of right knee: Status: Acute Qualifiers: Osteoarthritis type: primary Qualified Code(s): M17.11 - Unilateral primary osteoarthritis, right knee Category: Medical Code(s): M17.11 - Unilateral primary osteoarthritis, right knee (2) Osteoarthritis of left knee: Status: Acute Qualifiers: Osteoarthritis type: primary Qualified Code(s): M17.12 - Unilateral primary osteoarthritis, left knee Category: Medical Code(s): M17.12 - Unilateral primary osteoarthritis, left knee Plan I did discuss with the patient due to the fact that she just had intra-articular knee injections about 2 to 3 weeks ago that we would not be able to repeat those prior injections however she may benefit from bilateral infrapatellar nerve blocks. Patient was also counseled that the genicular RFA's that we used to do in our office is no longer covered by Medicare however in future I can always see about still trying to see if we have coverage for this. Patient was counseled that we would do at least 2 diagnostic nerve blocks for the knee pain to see if she got significant relief before proceeding forward with submitting for a RFA. Patient acknowledges understanding. Patient was counseled that this would be bilateral infrapatellar nerve blocks without fluoroscopic or ultrasound guidance. Patient would like to proceed forward with this plan of care. We did review the risk and benefits. Patient has tried and failed conservative therapy including oral medications, heat and ice, topicals, at home stretching exercise for longer than 12 weeks. Patient has been instructed to contact the clinic with any concerns before the next appointment. Dr. Bucio has reviewed this note and agrees with this plan of care. This note was dictated using voice recognition software and make contain errors or omissions. All injections are used with Lidocaine, Bupivacaine and Depo Medrol. Occasionally urine drug screen is needed to verify patient's compliance with our office pain contract. This is ordered based off specific treatments related to chronic pain with the potential to abuse certain medications.
[2024-10-09 15:00] VITALS: BP 153/77; BP 157/77; PULSE 68; RESP 14; O2SAT 96; BMI 33.5
== END 2024-10-09 23:59 | disposition home or self-care (01) ==
LOC: SC.PAIN 13:45
PROVIDERS: PCP Nurse Practitioner Family; Visit Provider Nurse Practitioner Family
DX: M17.0 Bilateral primary osteoarthritis of knee (principal)
CPT/HCPCS: 99212; G0463

== ENCOUNTER 2024-11-11 11:21 | Day surgery (SDC) | payer MEDICARE, SELFPAY ==
[2024-11-11 11:25] VITALS: BP 137/63; PULSE 69; PULSE 72; RESP 18; O2SAT 98
[2024-11-11 11:31] VITALS: BP 143/78; PULSE 71; RESP 16; TEMP 36.9; O2SAT 98; BMI 33.3
--- NOTE | 2024-11-11 11:38 | EXP.PAIN.PRO ---
Procedure Date: 11/11/24 Time: 11:30 Anesthesiologist:: Roel Villavicencio CRNA Complications:: None Pre-procedure Diagnosis:: DJD bilateral knee. Chronic bilateral knee pain. Post-procedure Diagnosis:: Same. Indications for Procedure:: Patient is a pleasant 68-year-old female who comes our clinic today for bilateral infrapatellar nerve blocks. She describes bilateral knee pain as constant, dull, aching. She rates her pain 7/10. She is having difficulty with ambulation due to bilateral knee pain severity. Patient reports having multiple intra-articular cortisone injections in the past. They were effective in the beginning. However her last few injections have not helped. Procedure Details:: Details of the procedure explained to the patient. The patient taken procedure and placed in sitting position. The area over the bilateral knees was cleansed with chlorhexidine as a cleansing solution. Using a 25-gauge inch and half needle the right infrapatellar branch of the saphenous nerve was accessed with ease. After negative aspiration 3 cc of 1% lidocaine +3 cc 0.25% Marcaine +10 mg of dexamethasone was injected. The same procedure was carried out over the left knee. Patient tolerated procedure without difficulty there were no complications. Plan and Disposition:: Patient was discharged without incident.
[2024-11-11 11:40] VITALS: BP 129/85; PULSE 67; RESP 16; O2SAT 96
[2024-11-11] MEDS: BUPIVACAINE 0.25% 10ML INJ 25 MG IJ (11:40)
[2024-11-11] MEDS: DEXAMETHASONE 10MG/ML 1ML VIAL 10 MG (11:40)
[2024-11-11] MEDS: LIDOCAINE 1% 5ML PF VIAL 5 ML (11:40)
== END 2024-11-11 11:40 | disposition home or self-care (01) ==
PROVIDERS: PCP Nurse Practitioner Family; Visit Provider Nurse Anesthetist, Certified Registered
DX: M17.0 Bilateral primary osteoarthritis of knee (principal); M25.561 Pain in right knee; M25.562 Pain in left knee; G89.29 Other chronic pain
CPT/HCPCS: 64450; J1100

== ENCOUNTER 2024-12-04 09:29 | Outpatient (POV) | payer MEDICARE, SELFPAY ==
--- OUTSIDE RECORDS SUMMARY | 2023-06-26 06:45 | XMS_ITS ---
Author Organization [facility] Address [address] [facility] [address] [place] [id number] Care Team Providers Care Medical Chemist Name Role Phone Armando Corbett Primary Care Provider Grace Kelsey [phone] Allergies Allergen (clinical drug ingredient) Drug/Non Drug Allergy documented on EMR Reaction Allergy Type Onset Date Status ampicillin Ampicillin Unknown Drug Allergy Activ e naproxen Naprosyn Unknown Drug Allergy Active Results Component Value Reference Range Notes CBC Fingerstick (in house) Reviewed date:06/27/2023 09:44:05 AM Interpretation: Performing Lab: Notes/Report: wbc 8.2 3.5 - 10 lym 34.4 15 - 50 mid 7.2 2 - 15 gran 58.4 35 - 80 rbc 4.78 3.5 - 5.5 hgb 13.6 11.5 - 16.5 hct 42.6 35 - 55 mcv 89.0 75 - 100 mch 28.5 25 - 35 mchc 32.1 31 - 38 plat 247 100 - 400 REASON FOR VISIT cough, runny nose, sneezing Medications Medication SIG (Take, Route, Frequency, Duration) Notes Start Date End Date Status Terbinafine HCl 250 MG 1 tab(s) orally once a day for 42 day(s) Not-Taking busPIRone HCl 10 MG 1 tab(s) orally 2 times a day for 30 day(s) Not-Taking Aspirin 81 MG 1 tab(s) orally once a day for 30 day(s) Not-Taking Metamucil 1 TBSP PO ONCE DAILY *Please review and pick correct strength-formula tion from [employer] options. If intended option is not shown, discontinue and re-order from Quick Search* Not-Taking Celecoxib 200 MG Take 1 capsule by mouth once daily for 30 Active Lansoprazole 30 MG 1 cap(s) orally once a day for 30 day(s) Active Valsartan 80 MG 1 tab(s) orally once a day for 30 day(s) Active Rosuvastatin Calcium 5 MG 1 tab(s) orally once a day for 30 day(s) Active Escitalopram Oxalate 10 MG 1 tab(s) orally once a day for 30 day(s) Active Eucrisa 2 % 1 lisa applied topically 2 times a day 08/24/2021 Not-Taking Gabapentin 100 MG 1-2 cap(s) orally 3 times a day 03/17/2021 Not-Taking Vitamin E 180 MG 1 capsule Orally Once a day for 30 day(s) Active Magnesium 100 MG 2 tablets with meals Orally once a day Active hydroCHLOROthiazide 12.5 MG 1 cap(s) orally once a day for 30 day(s) Active Vitamin E 400 UNIT 1 cap(s) orally once a day Not-Taking HYDROcodone Bit-Homatrop MBr 5-1.5 MG/5ML 5 ml Orally every 6 hrs prn 06/26/2023 Active Bisoprolol-hydroCHLOROth iazide 5-6.25 MG 1 tab(s) orally twice a day for 90 days Not-Taking Fluconazole 150 MG 1 tab(s) orally once 08/24/2021 Not-Taking Doxycycline Hyclate 100 MG 1 capsule Orally Two times a day for 10 day(s) 06/26/2023 Active MiraLax *Please review and pick correct strength-formula tion from [employer] options. If intended option is not shown, discontinue and re-order from Quick Search* Not-Taking Vital Signs Blood pressure systolic 126 mm Hg 06/26/19 24 Blood pressure diastolic 78 mm Hg 024 Heart Rate 87 /min 06/26/2023 Height 63 in 06/26/2023 Weight 181.4 lbs 06/26/2023 BMI 32.13 kg/m2 06/26/2023 Encounters Encounter Location Date Provider Diagnosis [facility] [address] [facility] [address] [place], [place] [id number] 06/26/2023 Grace Kelsey URI (upper respirato ry infection) J06.9 Assessments Encounter Date Diagnosis (ICD Code) Assessment Notes Treatment Notes Treatment Clinical Notes Section Notes 06/26/2023 URI (upper respiratory infection) (ICD-10 - J06.9) Likely has inderlying allergies as well Plan Of Treatment Medication Medication Name Sig Start Date Stop Date Notes HYDROcodone Bit-Homatrop MBr 5-1.5 MG/5ML 5 ml Orally every 6 hrs prn 06/26/2023 Promethazine-Codeine 6.25-10 MG/5ML 5-10 ml Orally every 6 hrs prn 06/26/2023 Doxycycline Hyclate 100 MG 1 capsule Ora lly Two times a day for 10 day(s) 06/26/2023 Next Appt Details Follow Up: prn, Reason: Medications Administered Medication Instructions Date of Administration Dosage Notes Depo- Medrol 40 mg/ml 06/26/2023 1.5 mL Progress Notes * WILLIAM MCRAENICOLASAADOB:1955 (68 yo F)Acc No.[id number]:06/26/2023 Progress Notes Patient: SARMAD MITCHELL Provider: Grace Kelsey M.D. :1955 A ge:67 Y S ex:Female Date:06/26/2023 Address:[address] [place] [address], [place], [id number] Pcp:Armando Corbett Subjective: * Chief Complaints: * 1 . Cough, runny nose, sneezing. * HPI: E NT/respiratory: 67 year old female presents with c/o cough P t presents today with c/o cough, watery eyes, sneezing, runny nose. Pt sts that she has been dealing with this since April. Pt sts that she is not sleeping well due to coughing so much. Pt sts that she has a dry non-productive cough and sts that the mucus from her sinuses is also clear. Pt sts that she hears rattling in her chest in the evening. Pt sts that she was seen at [facility] on 06/13 and started on Bromfed with no improvement. Pt sts that her top teeth even hurt. * ROS: C ARDIOLOGY: no C hest pain. n o S hortness of breath. ? G ASTROENTEROLOGY: no N ausea. n o V omiting. n o D iarrhea.? U ROLOGY: no D ifficulty urinating. n o B lood in urine. * Medical History: H ypertension, Hyperlipidemia, Depression, Osteoarthritis, GERD, Anxiety. * Surgical History: T egress Implant x2 , Tegress Injection 05/2005, Neck, Back and Hip Injections , C-scope/ Baker/ Normal 2003, BTL 1973, Bilateral Carpal Tunnel release 12/2011, LT Knee Arthoscopy 03/2014, Uterus Tumor Removal 03/2014, LT Cataract and Lens Reshaping 01/20/2016, rooster comb injections in left knee-Dr De , C-scope/ Allran/ small tics/ 5 year f/u recommended 2011. 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 * Family History: F ather: , prostate cancer. M other: , diagnosed with Stroke. M aternal aunt: breast cancer. 1 sister(s) . 1 son(s) . . daughter from breast cancer, age 38. * Social History: C URRENT TOBACCO USE S moking Status: Patient does NOT smoke. C affeine: yes, frequency:. Marital Status: . Past smoking status: no. Alcohol: Type: , Frequency: ,Years: , Determination:. * Medications: T aking Vitamin E 180 MG Capsule 1 capsule Orally Once a day , Taking Magnesium 100 MG Tablet 2 tablets with meals Orally once a day , Taking hydroCHLOROthiazide 12.5 MG Capsule 1 cap(s) orally once a day , Taking Escitalopram Oxalate 10 MG Tablet 1 tab(s) orally once a day , Taking Valsartan 80 MG Tablet 1 tab(s) orally once a day , Taking Rosuvastatin Calcium 5 MG Tablet 1 tab(s) orally once a day , Taking Celecoxib 200 MG Capsule Take 1 capsule by mouth once daily , Taking Lansoprazole 30 MG Capsule Delayed Release 1 cap(s) orally once a day , Not-Taking Aspirin 81 MG Tablet Delayed Release 1 tab(s) orally once a day , Not-Taking Terbinafine HCl 250 MG Tablet 1 tab(s) orally once a day , Not-Taking busPIRone HCl 10 MG Tablet 1 tab(s) orally 2 times a day , Not-Taking Metamucil 1 TBSP PO ONCE DAILY , Notes to Pharmacist: *Please review and pick correct strength-formulation from [employer]span options. If intended option is not shown, discontinue and re-order from Quick Search*, Not- Taking MiraLax , Notes to Pharmacist: *Please review and pick correct strength- formulation from [employer]span options. If intended option is not shown, discontinue and re-order from Quick Search*, Not-Taking Vitamin E 400 UNIT Capsule 1 cap(s) orally once a day , Not-Taking Bisoprolol-hydroCHLOROthiazide 5-6.25 MG Tablet 1 tab(s) orally twice a day , Not-Taking Fluconazole 150 MG Tablet 1 tab(s) orally once , Not-Taking Eucrisa 2 % Ointment 1 lisa applied topically 2 times a day , Not-Taking Gabapentin 100 MG Capsule 1-2 cap(s) orally 3 times a day , Discontinued Medrol 4 MG Tablet Therapy Pack as directed orally daily , Medication List reviewed and reconciled with the patient * Allergies: N aprosyn, Ampicillin. Objective: * Vitals: W t:181.4, Temp:98.2, BP:126/78, HR:87, O2 Sat:99% on RA, Nurse:ADRI, Ht: 63, BMI:32.13. * Examination: E NT/Respiratory: General Appearance: N AD. Ears: a uditory canals normal bilaterally, TM's WNL. Nose : congested. Sinuses : non tender bilaterally. Oral cavity : postnasal drainage. Heart : R RR, normal S1 S2, no murmurs. Lungs: c lear to auscultation bilaterally. Assessment: * Assessment: 1. U RI (upper respiratory infection) - J06.9 (Primary) Likely has inderlying allerg ies as well. Plan: * Treatment: Value Reference Range w bc 8.2 3.5 - 10 * l ym 34.4 15 - 50 * m id 7.2 2 - 15 * g ran 58.4 35 - 80 * r bc 4.78 3.5 - 5.5 * h gb 13.6 11.5 - 16.5 * h ct 42.6 35 - 55 * m cv 89.0 75 - 100 * m ch 28.5 25 - 35 * m chc 32.1 31 - 38 * p lat 247 100 - 400 * Jeane Urrutia 06/26/2023 11: 48:58 AM > , Provider reviewed results while patient in office. * Therapeutic Injections: Depo- Medrol 40 mg/ml : 1.5 mL (Route: Intramuscular) given by Sari Rhoades on right gluteus (URI (upper respiratory infection)) * Procedure Codes: 9 47[address] [place], [address] CAPILLARY BLOOD DRAW, 12190 CBC WITH AUTO DIFF, J1010 Depo- Medrol 40 mg/ml, Units: 1.50 , 25297 ADMINISTRATION OF INJECTION * Follow Up: p rn * Billing Information: * Visit Code: 34004 Office Visit, Est Pt., Level 3. * Procedure Codes: [address] [place]. [address] CAPILLARY BLOOD DRAW. 55563 CBC WITH AUTO DIFF. J1010 Depo- Medrol 40 mg/ml. Units: 1.50. 01862 ADMINISTRATION OF INJECTION. * Electronic signature of Grace Kelsey MD on 12/04/2024 at 09:41 AM EDT Sign off status: Pending * Provider: Grace Kelsey M.D. Date: 0 06/26/2023 Generated for Shaziai ng/Nino/eTransmitting on: 0 12/04/2024 09:41 AM EDT History and Physical Notes * HPI (History of Present Illness) Category Sub-Category Detail Notes Category Not es ENT/respiratory cough Pt presents toda y with c/o cough, watery eyes, sneezing, runny nose. Pt sts that she has been dealing with this since April. Pt sts that she is not sleeping well due to coughing so much. Pt sts that she has a dry non-productive cough and sts that the mucus from her sinuses is also clear. Pt sts that she hears rattling in her chest in the evening. Pt sts that she was seen at [facility] on 06/13 and started on Bromfed with no improvement. Pt sts that her top teeth even hurt Examination Category Sub-Category Detail Notes Category Not es ENT/Respiratory Oral cavity : postnasal drainage Sinuses : non tender bilateral ly Ears: auditory canals norm al bilaterally, TM's WNL Heart : RRR, normal S1 S2, n o murmurs Lungs: clear to auscultatio n bilaterally General Appearance: NAD Nose : congested
--- OUTSIDE RECORDS SUMMARY | 2023-07-24 06:45 | XMS_ITS ---
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 Name Role Phone Armando Corbett Primary Care Provider [phone] Grace Kelsey [phone] Allergies Allergen (clinical drug ingredient) Drug/Non Drug Allergy documented on EMR Reaction Allergy Type Onset Date Status ampicillin Ampicillin Unknown Drug Allergy Activ e naproxen Naprosyn Unknown Drug Allergy Active REASON FOR VISIT f/u on sickness, doesnt feel like cough has gotten any better Medications Medication SIG (Take, Route, Frequency, Duration) Notes Start Date End Date Status hydroCHLOROthiazide 12.5 MG 1 cap(s) orally once a day for 30 day(s) Active Escitalopram Oxalate 10 MG 1 tab(s) orally once a day for 30 day(s) Active Magnesium 100 MG 2 tablets with meals Orally once a day Active Vitamin E 180 MG 1 capsule Orally Once a day for 30 day(s) Active HYDROcodone Bit-Homatrop MBr 5-1.5 MG/5ML 5 ml Orally every 6 hrs prn 07/24/2023 Active predniSONE 10 MG 1 tablet 3 times daily x 5 days, then 1 tab 2 times daily x 5 days, then 1 tab daily x 5 days Orally 07/24/2023 Active Gabapentin 100 MG 1-2 cap(s) orally 3 times a day 03/17/2021 Not-Taking Fluconazole 150 MG 1 tab(s) orally once 08/24/2021 Not-Taking Doxycycline Hyclate 100 MG 1 capsule Orally Two times a day for 10 day(s) 07/24/2023 Active Eucrisa 2 % 1 lisa applied topically 2 times a day 08/24/2021 Not-Taking Metamucil 1 TBSP PO ONCE DAILY *Please review and pick correct strength-formula tion from [employer] options. If intended option is not shown, discontinue and re-order from Quick Search* Not-Taking MiraLax *Please review and pick correct strength-formula tion from [employer] options. If intended option is not shown, discontinue and re-order from Quick Search* Not-Taking busPIRone HCl 10 MG 1 tab(s) orally 2 times a day for 30 day(s) Not-Taking Vitamin E 400 UNIT 1 cap(s) orally once a day Not-Taking Bisoprolol-hydroCHLOROth iazide 5-6.25 MG 1 tab(s) orally twice a day for 90 days Not-Taking Terbinafine HCl 250 MG 1 tab(s) orally once a day for 42 day(s) Not-Taking Aspirin 81 MG 1 tab(s) orally once a day for 30 day(s) Not-Taking Doxycycline Hyclate 100 MG 1 capsule Orally Two times a day for 10 day(s) 06/26/2023 Active Celecoxib 200 MG Take 1 capsule by mouth once daily for 30 Active Lansoprazole 30 MG 1 cap(s) orally once a day for 30 day(s) Active Valsartan 80 MG 1 tab(s) orally once a day for 30 day(s) Active Rosuvastatin Calcium 5 MG 1 tab(s) orally once a day for 30 day(s) Active Vital Signs Blood pressure systolic 122 mm Hg 07/24/19 24 Blood pressure diastolic 78 mm Hg 024 Heart Rate 67 /min 07/24/2023 Height 63 in 07/24/2023 Weight 185.2 lbs 07/24/2023 BMI 32.80 kg/m2 07/24/2023 Encounters Encounter Location Date Provider Diagnosis [facility] [address] [place], [place] [id number] 07/24/2023 Grace Kelsey URI (upper respirato ry infection) J06.9 and Cough R05.9 Assessments Encounter Date Diagnosis (ICD Code) Assessment Notes Treatment Notes Treatment Clinical Notes Section Notes 07/24/2023 URI (upper respiratory infection) (ICD-10 - J06.9) 07/24/2023 Cough (ICD-10 - R05.9) If symptoms persist after treatment, she is to obtain chest x-ray and return for follow-up. Plan Of Treatment Medication Medication Name Sig Start Date Stop Date Notes HYDROcodone Bit-Homatrop MBr 5-1.5 MG/5ML 5 ml Orally every 6 hrs prn 07/24/2023 predniSONE 10 MG 1 tablet 3 times luis ly x 5 days, then 1 tab 2 times daily x 5 days, then 1 tab daily x 5 days Orally 07/24/2023 Doxycycline Hyclate 100 MG 1 capsule Ora lly Two times a day for 10 day(s) 07/24/2023 Treatment Notes Assessment Notes Cough If symptoms persist after treatment, she is to obtain chest x-ray and return for follow-up. Pending Test Test Name Order Date CXR 07/24/2023 Next Appt Details Follow Up: 1 Week, 2 Weeks, prn, Reason: Progress Notes * FAYE MCRAEADOB:1955 (68 yo F)Acc No.[id number]:07/24/2023 Progress Notes Patient: MAGGIE MITCHELL Provider: Grace Kelsey M.D. :1955 A ge:67 Y S ex:Female Date:07/24/2023 Address:[address] [place] [address], [place], [id number] Pcp:Armando Corbett Subjective: * Chief Complaints: * 1 . F/u on sickness, doesnt feel like cough has gotten any better. * HPI: E NT/respiratory: Maggie returns with recurring URI symptoms. She states after completing her last course of antibiotics, her symptoms had almost completely resolved and within the past week she has developed recurring persistent cough that is mostly nonproductive. It keeps her awake at night. No fever or hemoptysis. No chest pain. * ROS: C ARDIOLOGY: no C hest [...] cap(s) orally once a day , Taking Doxycycline Hyclate 100 MG Capsule 1 capsule Orally Two times a day , Taking HYDROcodone Bit-Homatrop MBr 5-1.5 MG/5ML Solution 5 ml Orally every 6 hrs prn , Not-Taking Aspirin 81 MG Tablet Delayed Release 1 tab(s) orally once a day , Not-Taking Terbinafine HCl 250 MG Tablet 1 tab(s) orally once a day , Not-Taking busPIRone HCl 10 MG Tablet 1 tab(s) orally 2 times a day , Not-Taking Metamucil 1 TBSP PO ONCE DAILY , Notes to Pharmacist: *Please review and pick correct strength-formulation from [employer] options. If intended option is not shown, discontinue and re-order from Quick Search*, Not- Taking MiraLax , Notes to Pharmacist: *Please review and pick correct strength- formulation from [employer] options. If intended option is not shown, [...] cap(s) orally 3 times a day , Medication List reviewed and reconciled with the patient * Allergies: N aprosyn, Ampicillin. Objective: * Vitals: W t:185.2, Temp:98.7, BP:122/78, HR:67, O2 Sat:99% on RA, Nurse:ADRI, Ht: 63, BMI:32.80. * Examination: E NT/Respiratory: General Appearance: N AD. Ears: a uditory canals normal bilaterally, TM's WNL. Nose : congested. Sinuses : non tender bilaterally. Oral cavity : postnasal drainage. Heart : R RR, normal S1 S2, no murmurs. Lungs: F ew upper airway rhonchi. No wheezes. ? Assessment: * Assessment: 1. U RI (upper respiratory infection) - J06.9 (Primary) 2 . C ough - R05.9? Plan: * Treatment: 2. C ough I maging: [facility]: If symptoms persist after treatment, she is to obtain chest x-ray and return for follow-up.? * Procedure Codes: 9 4760 PULSE OX * Follow Up: 1 Week, 2 Weeks, prn * Billing Information: * Visit Code: 60710 Office Visit, Est Pt., Level 3. * Procedure Codes: 29128 PULSE OX. * Electronic signature of Grace Kelsey MD on 12/04/2024 at 09:41 AM EDT Sign off status: Pending * Provider: Grace Kelsey M.D. Date: 0 07/24/2023 Generated for Yandel chauhan/Nino/Vasyl on: 0 12/04/2024 09:41 AM EDT History and Physical Notes * Examination Category Sub-Category Detail Notes Category Not es ENT/Respiratory Oral cavity : postnasal drainage Sinuses : non tender bilateral ly Ears: auditory canals norm al bilaterally, TM's WNL Heart : RRR, normal S1 S2, n o murmurs Lungs: Few upper airway rho nchi. No wheezes General Appearance: NAD Nose : congested
--- OUTSIDE RECORDS SUMMARY | 2024-07-01 07:45 | XMS_ITS ---
Author Organization [facility] Address [address] [place] [id number] Care Team Providers Care Professor Of Theater Name Role Phone Armando Corbett Primary Care Provider Grace Kelsey [phone] Allergies Allergen (clinical drug ingredient) Drug/Non Drug [...] twice a day for 90 days Not-Taking busPIRone HCl 10 MG 1 tab(s) orally 2 times a day for 30 day(s) Not-Taking Metamucil 1 TBSP PO ONCE DAILY *Please review and pick correct strength-formula tion from Medispan options. If intended option is not shown, discontinue and re-order from Quick Search* Not-Taking Aspirin 81 MG 1 tab(s) orally once a day for 30 day(s) Not-Taking Terbinafine HCl 250 MG 1 tab(s) orally once a day for 42 day(s) Not-Taking MiraLax *Please review and pick correct strength-formula tion from [employer] options. If intended option is not shown, discontinue and re-order from Quick Search* Not-Taking HYDROcodone Bit-Homatrop MBr 5-1.5 MG/5ML 5 ml Orally every 6 hrs prn 07/24/2023 Not-Taking Doxycycline Hyclate 100 MG 1 capsule Orally Two times a day for 10 day(s) 06/26/2023 Not-Taking Doxycycline Hyclate 100 MG 1 capsule Orally Two times a day for 10 day(s) 07/24/2023 Not-Taking Lansoprazole 30 MG 1 cap(s) orally once a day for 30 day(s) Not-Taking Escitalopram Oxalate 10 MG 1 tab(s) orally once a day for 30 day(s) Active Valsartan 80 MG 1 tab(s) orally once a day for 30 day(s) Active hydroCHLOROthiazide 12.5 MG 1 cap(s) orally once a day for 30 day(s) Active Rosuvastatin Calcium 5 MG 1 tab(s) orally once a day for 30 day(s) Active Celecoxib 200 MG Take 1 capsule by mouth once daily for 30 Not-Taking Ibuprofen 800 MG 1 tablet with food or milk as needed Orally every 8 hrs Active Vitamin E 180 MG 1 capsule Orally Once a day for 30 day(s) Active Zithromax Z-Leopoldo 250 MG [...] 07/01/2024 Encounters Encounter Location Date Provider Diagnosis [facility] [address] [facility] [address] [place] [id number] 07/01/2024 Grace Kelsey Acute pharyngitis J02.9 Assessments Encounter Date Diagnosis (ICD Code) Assessment Notes Treatment Notes Treatment Clinical Notes Section Notes 07/01/2024 Acute pharyngitis (ICD-10 - J02.9) Plan Of Treatment Medication Medication Name Sig Start Date Stop Date Notes Zithromax Z-Leopoldo 250 MG as directed Orally 07/01/2024 Next Appt Details Follow Up: prn, Reason: Progress Notes * FAYE MCRAEADOB:1955 (68 yo F)Acc No.[id number]:07/01/2024 Progress Notes Patient: SARMAD MITCHELL Provider: Grace Kelsey M.D. :1955 A ge:68 Y S ex:Female Date:07/01/2024 Address:[address] [place] [address] [address], [place], [id number] Pcp:Armando Corbett Subjective: * Chief Complaints: * [...] review and pick correct strength- formulation from [employer] options. If intended option is not shown, discontinue and re-order from Quick Search*, Not-Taking MiraLax , Notes to Pharmacist: *Please review and pick correct strength-formulation from [employer] options. If intended option is not shown, [...] Examination: E NT/Respiratory: General Appearance: N AD. Eyes: P ERRLA, sclera clear. Ears: a uditory canals normal bilaterally, TM's WNL. Nose : n ormal, no lesions, nares patent. Oral cavity : mild erythema of throat, no exudate. Neck : tender right submandibular gland. Heart : R RR, normal S1 S2, no murmurs. Lungs: c lear to auscultation bilaterally. Assessment: * Assessment: 1. A cute pharyngitis - J02.9 (Primary) Plan: * Treatment: * Follow Up: p rn * Billing Information: * Visit Code: 44393 Office Visit, Est Pt., Level 3. * Procedure Codes: * Electronic signature of Grace Kelsey MD on 12/04/2024 at 09:40 AM EDT Sign off status: Pending * Provider: Grace Kelsey M.D. Date: 0 07/01/2024 Generated for Yandel chauhan/Nino/Bhupendraitting on: 0 12/04/2024 09:40 AM EDT History and Physical Notes * [...]
--- OUTSIDE RECORDS SUMMARY | 2024-12-04 09:41 | XMS_ITS | Clinical Summary ---
Author Organization Healthcare Address [address] [place] [address] Care Team Providers Care Transport Nurse Name Role Phone Alpesh Corbett MD Primary Care Provider [phone] Family History Medical History Relation Name Comments Conversions - Other Father Patient' s father is Hypertension Mother Relation Name Status Comments Father Mother Social History Tobacco Use Types Packs/Day Years Used Date Smoking Tobacco: Never Comments Unknown Sex and Gender Information Value Date Recorded Sex Assigned at Not on file Legal Sex Female 7:47 PM EDT Gender Identity Not on file Sexual Orientation Not on file Last Filed Vital Signs Vital Sign Reading Time Taken Comments Blood Pressure - - Pulse - - Temperature - - Respiratory Rate - - Oxygen Saturation - - Inhaled Oxygen Concentration - - Weight 81.2 kg (178 lb 15.9 oz) 016 10:48 AM EST Height 160 cm (5' 3 ) 05/10/2016 10:48 AM EST Body Mass Index 31.71 05/10/2016 10:48 AM EST Plan of Treatment Not on file Care Teams Transport Nurse Relationship Specialty Start Date End Date Alpesh Corbett MD [address] [place] [id number] PCP - General 11/05/20
--- OUTSIDE RECORDS SUMMARY | 2024-12-04 09:41 | XMS_ITS | Patient Health Record ---
[facility] Address [address] [facility] [address] [place] [id number] Care Team Providers Care Religious Healer Name Role Phone Armando Corbett Primary Care Provider Grace Kelsey [phone] Allergies Allergen (clinical drug ingredient) Drug/Non Drug Allergy documented on EMR Reaction Allergy Type Onset Date Status ampicillin Ampicillin Unknown Drug Allergy Activ e naproxen Naprosyn Unknown Drug Allergy Active Medications Medication SIG (Take, Route, Frequency, Duration) Notes Start Date End Date Status Rosuvastatin Calcium 5 MG 1 tab(s) orally once a day for 30 day(s) Active Ibuprofen 800 MG 1 tablet with food or milk as needed Orally every 8 hrs Active Gabapentin 100 MG 1-2 cap(s) orally 3 times a day 03/17/2021 Not-Taking Vitamin E 180 MG 1 capsule Orally Once a day for 30 day(s) Active HYDROcodone Bit-Homatrop MBr 5-1.5 MG/5ML 5 ml Orally every 6 hrs prn 07/24/2023 Not-Taking Doxycycline Hyclate 100 MG 1 capsule Orally Two times a day for 10 day(s) 06/26/2023 Not-Taking Fluconazole 150 MG 1 tab(s) orally once 08/24/2021 Not-Taking Doxycycline Hyclate 100 MG 1 capsule Orally Two times a day for 10 day(s) 07/24/2023 Not-Taking Eucrisa 2 % 1 lisa applied topically 2 times a day 08/24/2021 Not-Taking Escitalopram Oxalate 10 MG 1 tab(s) orally once a day for 30 day(s) Active busPIRone HCl 10 MG 1 tab(s) orally 2 times a day for 30 day(s) Not-Taking Valsartan 80 MG 1 tab(s) orally once a day for 30 day(s) Active Metamucil 1 TBSP PO ONCE DAILY *Please review and pick correct strength-formula tion from Triggit options. If intended option is not shown, discontinue and re-order from Quick Search* Not-Taking Zithromax Z-Leopoldo 250 MG as directed Orally 07/01/2024 Active Magnesium 100 MG 2 tablets with meals Orally once a day Active Aspirin 81 MG 1 tab(s) orally once a day for 30 day(s) Not-Taking hydroCHLOROthiazide 12.5 MG 1 cap(s) orally once a day for 30 day(s) Active Terbinafine HCl 250 MG 1 tab(s) orally once a day for 42 day(s) Not-Taking Celecoxib 200 MG Take 1 capsule by mouth once daily for 30 Not-Taking Vitamin E 400 UNIT 1 cap(s) orally once a day Not-Taking Lansoprazole 30 MG 1 cap(s) orally once a day for 30 day(s) Not-Taking Bisoprolol-hydroCHLOROth iazide 5-6.25 MG 1 tab(s) orally twice a day for 90 days Not-Taking MiraLax *Please review and pick correct strength-formula tion from Triggit options. If intended option is not shown, discontinue and re-order from Quick Search* Not-Taking Immunizations Vaccine Route Administration Date Status Comme nts COVID 19 Moderna Unknown 08/25/2020 Administered COVID 19 Moderna Unknown 09/22/2020 Administered COVID 19 Moderna Unknown 05/05/2021 Administered COVID 19 Moderna Unknown 01/25/2022 Administered Fluzone PF Quad (6-35 months) Unknown 04/23/2018 Administered Fluzone PF Quad (6-35 months) Unknown 04/07/2020 Administered Fluzone PF Quad (6-35 months) Unknown 04/18/2021 Administered Fluzone PF Quad (6-35 months) Unknown 04/05/2022 Administered Fluzone PF Quad (6-35 months) Unknown 03/31/2023 Administered Fluzone Quad (6months&older) Unknown 04/24/2019 Administered Hepatitis A (adult) Unknown 06/03/2018 Administered Hepatitis A (adult) Unknown 04/24/2019 Administered Hepatitis B (20 and more) Unknown 02/01/2009 Administer ed Hepatitis B (20 and more) Unknown 03/18/2009 Administer ed Hepatitis B (20 and more) Unknown 08/03/2009 Administer ed Prevnar (PCV20) Unknown 01/18/2022 Administered Tetanus Tdap-Adacel (over 7yrs) IM Intramuscular 09/25/2017 Administered xFlu shot-36 months and older IM Intramuscular 05/13/2005 Administered Problems Problem Type SNOMED Code ICD Code Onset Dates Problem Status W/U Status Risk Notes Problem Gastroesophageal reflux disease (786180055) GERD (gastroesophageal reflux disease) (K21.9) Active confirmed Problem Vitamin D deficiency (89353854) Vitamin D deficiency (E55.9) Active confirmed Problem Constipation (45849225) Constipation (K59.00) Active confirmed Problem 89931069 Hypertension (I10) Active confirmed Problem 970633717 Depression with anxiety (F41.8) Active confirmed Problem Hyperlipidemia (29384287) Hyperlipidemia, unspecified (E78.5) Active confirmed Problem 321987667 Primary arthrosi s of multiple joints (M19.91) Active confirmed Problem 107484282 Gastroesophageal reflux disease with esophagitis (K21.0) Active confirmed Problem 997931265 Spondylosis of lumbar region without myelopathy or radiculopathy (M47.816) Active confirmed Problem Body mass index 30.00 to 34.99 (105044507425018) BMI 34.0-34.9,adult (Z68.34) Active confirmed Problem 57145302 Depression, unspecified depression type (F32.9) Active confirmed Problem 019593546 Postmenopausal syndrome (N95.1) Active confirmed Problem 41763671 Thyromegaly (E01.0) Active confirmed Vital Signs Heart Rate 82 /min 07/01/2024 Blood pressure diastolic 76 mm Hg 07/01/2024 Height 63 in 07/01/2024 Blood pressure systolic 128 mm Hg 07/01/2024 Weight 190.6 lbs 07/01/2024 BMI 33.76 kg/m2 07/01/2024 Encounters Encounter Location Date Provider Diagnosis [facility] [address] [facility] [address] [place] [id number] 07/01/2024 Grace Kelsye Acute pharyngitis J02.9 Assessments Encounter Date Diagnosis (ICD Code) Assessment Notes Treatment Notes Treatment Clinical Notes Section Notes 07/01/2024 Acute pharyngitis (ICD-10 - J02.9) Plan Of Treatment Pending Test Test Name Order Date Bone density 11/25/2020 CXR 07/24/2023 Insurance Providers Payer Name Payer Address Payer Phone Subscriber Number Group Number Insured Name Patient Relationship to Insured Coverage Start Date Coverage End Date [employer] (MEDICAR E) [address] [address] [place] [phone] [id number] SARMAD MCRAE Self - patient is the insured Medications Administered Medication Instructions Date of Administration Dosage Notes B-12 09/25/2017 1 mL Depo- Medrol 40 mg/ml 06/13/2014 1 mL inj ected into left heel by Dr. Kelsey Depo- Medrol 40 mg/ml 10/10/2014 1.5 mL Depo- Medrol 40 mg/ml 06/26/2023 1.5 mL Dexamethasone 02/11/2021 1 mL Dexamethasone 01/19/2023 1 mL Medical (General) History Medical History History ICD Code Hypertension Hyperlipidemia Depression Osteoarthritis GERD Anxiety Surgical History Surgery Date(Month/Year) Tegress Implant x2 Tegress Injection 05/2005 Neck, Back and Hip Injections C-scope/ Olivia/ Normal 2003 BTL 1973 Bilateral Carpal Tunnel release 12/2011 LT Knee Arthoscopy 03/2014 Uterus Tumor Removal 03/2014 LT Cataract and Lens Reshaping 6 rooster comb injections in left knee-Dr De C-scope/ Citlali/ small tics/ 5 year f/u recommended 2011 Hospitalization History Reason Date(Month/Year) [facility] ER, lost memory 10/27/07
--- OUTSIDE RECORDS SUMMARY | 2024-12-04 09:42 | XMS_ITS | Clinical Summary ---
[facility] Address [address] [place] [address] Care Team Providers Care Supervisor Tumbling And Rolling Name Role Phone System, Referring Not In Primary Care Provider U navailable Social History Tobacco Use Types Packs/Day Years Used Date Smoking Tobacco: Never Assessed Comments Unknown Sex and Gender Information Value Date Recorded Sex Assigned at Not on file Legal Sex Female 7:34 AM EST Gender Identity Not on file Sexual Orientation Not on file Plan of Treatment Not on file Care Teams Supervisor Tumbling And Rolling Relationship Specialty Start Date End Date System, Referring Not In PCP - General 08/09/10
--- OUTSIDE RECORDS SUMMARY | 2024-12-04 09:42 | XMS_ITS | Patient Health Record ---
Author Organization [facility] Address [address] [place] [address] Care Team Providers Care [place] Utility Worker Name Role Phone Annemarie Pulido Unavailable [phone] Allergies Allergen (clinical drug ingredient) Drug/Non Drug Allergy documented on EMR Reaction Allergy Type Onset Date Status naproxen NAPROXEN (uncoded) Unspecified Allergy 0 Active Reason For Referral No Information Social History Social History Additional Details Category Social Info Options Details Miscellaneous: Sexually active: SEXUAL AC TIV: Current Problems Problem Type SNOMED Code ICD Code Onset Dates Problem Status W/U Status Risk Notes Problem Hormone replacement therapy (002775698) Counseling for estrogen replacement therapy (Z79.890) Active confirmed Hormone replacement therapy Problem Menopause (149801808) *Menopausal and female climacteric states (Code also, associated symptoms) (N95.1) Active confirmed Menopausal and female climacteric states Problem Gynecological examination abnormal (76754985176341 3) *Application Technician exam with abnormal finding (Code also - abnormal finding(s) (Z01.411) Active confirmed Annual with abnormal findings Problem Gynecological examination normal (60004277678976 4) Cervical smear, as part of routine gynecological examination (Z01.419) Active confirmed Annual without abnormal findings Problem Confusional state (disorder) (779211342) Confusion state (F44.89) Active confirmed Sleep-related dissociative disorder Plan Of Treatment No Information Medical (General) History Medical History History ICD Code abnormal pap acid reflux anxiety high blood pressure UTI yeast Lexapro 5 mg tablet, BY MOUTH estradiol 0.05 mg/24 hr patch semiweekly , TO SKIN bisoprolol-hydrochlorothiazide 2.5-6.25 mg tablet, BY MOUTH fluocinonide 0.1% cream, TO SKIN Celebrex 50 mg capsule, BY MOUTH Prometrium 100 mg capsule, BY MOUTH acyclovir 400 mg tablet, BY MOUTH Surgical History Surgery Date(Month/Year) cataract bladder sling knee eye carpal tunnel tubal
--- OUTSIDE RECORDS SUMMARY | 2024-12-04 09:42 | XMS_ITS | Data Portability ---
Author Organization [place] [facility] Office Address [address] [facility] [address] [place] [address] Care Team Providers Care Deck Specialist Name Role Phone SLIMFINA MEZA Primary Care Provider [phone] Assessment No assessment recorded. Plan of Treatment Reminders Order Date Submit Date Provider Last Modified By Organization Details Last Modified Time Details Appointments None recorded. Lab None recorded. Referral None recorded. Procedures epidural steroid injection, lumbar (PROC) - please schedule LESI L5-S1 right 2022 023 aimee Martinez [facility], [address] [place] [address], [address], [address], 3 10:31:40 epidural steroid injection, lumbar (PROC) - L5-S1 W/ Dr. Ja Rowe [facility] is [facility] TIN: [phone] 2021 022 aimee Martinez [facility], [address] [place] [address], [address], [address], 2 16:01:36 Surgeries None recorded. Imaging None recorded. Medication Orders None recorded. Patient TargetsNo targets recorded. Patient Instructions Encounter Date Encounter Id Patient Instructions Last Modified By Organization Details Last Modified Time 01/09/2022 [id number] discussed her irregular bleeding possibly SE from steroid but she has to continue her work up with [facility] and she agrees [email or web address] Not available 01/09/2022 10:00:11 07/03/2022 [id number] continue healthy lifestyles encouraged HEP/stretching please note patient does not receive any scheduled medications, only injective therapy at this time Patient seen today incident to a physician s previously established diagnosis and plan of care. Follow-up care provided today under the plan of care of: Kimberly Peres MD and supervision of: Kimberly Peres MD. [email or web address] Not available 07/03/2022 12:26:47 Reason for Referral None Reported. Results Created Date Observation Date Name Description Value Unit Range Abnormal Flag Note LastModifiedBy Organization Detail LastModifiedTime 01/13/20 22 MRI, lumba r spine , w/wo contr ast No observ ation record ed. [email or web address] Not Available 2021 14:41:26 Result Notes None recorded. Problems Name Problem SNOMED Code Status Onset Date Resolution Date Notes Provider Name and Address Organization Details Recorded Time Chronic pain 31452784 Active 2020 (G89.29)O ther chronic pain Not Available [facility] 2 23:02:53 Spondylos is without myelopath y 95884510 Active 2020 (M47.816) Spondylos is without myelopath y or radiculop athy, lumbar region Not Available [facility] 2 23:02:53 Degenerat ion of lumbosacr al intervert ebral disc 20468505 Active 2020 (M51.37)O ther intervert ebral disc degenerat ion, lumbosacr al region Not Available [facility] 2 23:02:53 Lumbosacr al radiculop athy 6112468 Active 2020 (M54.17)R adiculopa thy, lumbosacr al region Not Available [facility] 2 23:02:53 Pre-surge ry testing Active 2020 (Z01.812) Encounter for preproced ural laborator y examinati on Not Available [facility] 2 23:02:53 Osteoarth ritis of right knee joint 35994805160 9100 Active 2021 [facility] 2 09:58:30 Problem Notes None recorded. Medical Equipment None Reported. Allergies Allergen ID Allergen Name Allergen Category Reaction Reaction Severity Criticality Documentation Date Start Date Code Code System Note Provider Name and Address Organization Details Recorded Time 84689 ampicilli n medicatio n Not available Not available Not available 10/25/20212020 733 RxNorm React ion: LIPS SWELL ING(M ild) Not Available [facility] 22:02:08 16219 naproxen medicatio n Not available Not available Not available 10/25/20212020 7258 RxNorm React ion: hands ,feet itch on the botto m(Mil d) Not Available [facility] 22:02:08 Medications Name Sig Start Date Stop Date Status Note LastModified by Organization Details LastModified Time celecoxib 200 mg capsule TAKE 1 CAPSULE BY MOUTH ONCE DAILY active Not Available Not Available No t Available promethazin e-DM 6.25 mg-15 mg/5 mL oral syrup TAKE 5 ML BY MOUTH EVERY 6 HOURS NEEDED 07/03 completed Not Available Not Available Not Available ketoconazol e 2 % shampoo APPLY TOPICALLY EVERY DAY TO AFFECTED AREA(S) LATHER, LEAVE IN PLACE FOR 5 MINUTES, AND THEN RINSE OFF WITH WATER active Not Available Not Available No t Available trazodone 50 mg tablet TAKE 1 TABLET BY MOUTH ONCE DAILY AT BEDTIME active Not Available Not Available No t Available azithromyci n 250 mg tablet TAKE 2 TABLETS BY MOUTH ON DAY 1, AND THEN TAKE 1 TABLET BY MOUTH ONCE A DAY ON DAY 2 THROUGH DAY 5 05/10 completed Not Available Not Available Not Available ibuprofen 800 mg tablet TAKE 1 TABLET BY MOUTH THREE TIMES DAILY WITH FOOD FOR 10 DAYS active Not Available Not Available No t Available fluconazole 150 mg tablet TAKE 1 TABLET BY MOUTH A ONE TIME DOSE active Not Available Not Available No t Available prednisone 20 mg tablet TAKE 2 TABLETS BY MOUTH ONCE DAILY active Not Available Not Available No t Available bisoprolol 5 mg-hydrochl orothiazide 6.25 mg tablet TAKE 1 TABLET BY MOUTH TWICE DAILY active Not Available Not Available No t Available valsartan 80 mg tablet TAKE 1 TABLET BY MOUTH TWICE DAILY active Not Available Not Available No t Available meclizine 12.5 mg tablet TAKE 1 TABLET BY MOUTH TWICE DAILY NEEDED FOR VERTIGO active Not Available Not Available No t Available acyclovir 400 mg tablet TAKE 1 TABLET BY MOUTH THREE TIMES DAILY active Not Available Not Available No t Available valacyclovi r 500 mg tablet active Not Available Not Available Not Available triamcinolo ne acetonide 0.1 % topical cream APPLY A THIN LAYER OF CREAM EXTERNALL Y TO AFFECTED AREA TWICE DAILY active Not Available Not Available No t Available oxycodone-a cetaminophe n 5 mg-325 mg tablet TAKE 1 TABLET BY MOUTH EVERY 6 HOURS NEEDED FOR 6 DAYS 05/10 completed Not Available Not Available Not Available terbinafine HCl 250 mg tablet TAKE 1 TABLET BY MOUTH ONCE DAILY active Not Available Not Available No t Available gemfibrozil 600 mg tablet TAKE 1 TABLET BY MOUTH TWICE DAILY 30 MINUTES BEFORE MORNING AND EVENING MEAL active Not Available Not Available No t Available buspirone 10 mg tablet TAKE 1 TABLET BY MOUTH THREE TIMES DAILY active Not Available Not Available No t Available lansoprazol e 30 mg capsule,del ayed release TAKE 1 CAPSULE BY MOUTH ONCE DAILY BEFORE A MEAL active Not Available Not Available No t Available gabapentin 100 mg capsule take 1 capsule three times a day 05/10 completed Not Available Not Available Not Available methylpredn isolone 4 mg tablets in a dose pack TAKE BY MOUTH DIRECTED ON INSIDE OF PACKAGE 05/10 completed Not Available Not Available Not Available hydrocortis one 2.5 % topical ointment APPLY A THIN LAYER TOPCALLY 2 TIMES EVERY DAY TO THE AFFECTED AREA(S) active Not Available Not Available No t Available ketoconazol e 2 % topical cream APPLY CREAM TOPICALLY TO AFFECTED AREA ONCE DAILY active Not Available Not Available No t Available cefdinir 300 mg capsule TAKE 1 CAPSULE BY MOUTH EVERY 12 HOURS FOR 7 DAYS 07/03 completed Not Available Not Available Not Available fluticasone propionate 50 mcg/actuati on nasal spray,suspe nsion USE 1 TO 2 SPRAY(S) IN EACH NOSTRIL ONCE DAILY NEEDED active Not Available Not Available No t Available progesteron e micronized 100 mg capsule TAKE 1 CAPSULE BY MOUTH ONCE DAILY AT NIGHT active Not Available Not Available No t Available escitalopra m 10 mg tablet TAKE 1 TABLET BY MOUTH ONCE DAILY active Not Available Not Available No t Available valsartan 40 mg tablet TAKE 1 TABLET BY MOUTH TWICE DAILY active Not Available Not Available No t Available rosuvastati n 5 mg tablet TAKE 1 TABLET BY MOUTH ONCE DAILY active Not Available Not Available No t Available hydrochloro thiazide 12.5 mg tablet TAKE 1 TABLET BY MOUTH ONCE DAILY active Not Available Not Available No t Available Eucrisa 2 % topical ointment APPLY TOPICALLY TO AFFECTED AREA TWICE DAILY active Not Available Not Available No t Available Estefania 0.05 mg/24 hr transdermal patch APPLY 1 PATCH TOPICALLY TO SKIN TWICE A WEEK active Not Available Not Available No t Available COVID-19 test specimen collection Rapid COVID test - PLease fax results to Dx. Z01.812 05/10 completed Not Available Not Available Not Available Vitals Date Recorded Body height Body mass index (BMI) Body weight Body temperature Heart rate Respiratory rate Systolic blood pressure Diastolic blood pressure Provider Name and Address Organization Details Last Updated DateTime 3 162.56 cm 31.6 kg/m2 50433 g 97.7 [degF] 78 /min 18 /min 118 mm[Hg] 68 mm[Hg] [facility] 3 10:58:48 Date Recorded Body height Body mass index (BMI) Body weight Body temperature Heart rate Oxygen saturation Oxygen saturation in Arterial blood by Pulse oximetry Systolic blood pressure Diastolic blood pressure Provider Name and Address Organization Details Last Updated DateTime 2 162.56 cm 31.6 kg/m2 58244 g 97.6 [degF] 63 /min 93 % 93 % 155 mm[Hg] 94 mm[Hg] [facility] 2 09:30:29 Social History None recorded. Functional Status None recorded. Mental Status None recorded. Family History Nothing Reported. Medical History No medical history recorded. Gynecological HistoryNo gynecological history recorded. Obstetrics History GPAL:G 0 P 0 0 0 0 Past Encounters Encounter ID Performer Location Encounter Start Date Encounter Closed Date Diagnosis/Indication Diagnosis SNOMED-CT Code Diagnosis ICD10 Code Diagnosis Note [id number] Stephanie Ramos, [employer]ACHINE [employer] [address] [facility] [address] [place] [address] 01/09/2022 09:04:51 01/10/2022 15:21:29 Lumbosacral radiculopathy 3492795 M54.17 has done well after the injection with her pain, says she has completed the PT and has been walking, will schedule repeat in May and then see her back after that Osteoarthr itis of right knee joint [id number] 62713 M17.11 provided info on PNS with [employer], advised [employer] will not cover Genicular RFA and other tx has not helped her much, she may need ortho will discuss later time [id number] Karon Elizalde, [employer] [employer] [address] [place] [address] 07/03/2022 10:39:15 07/06/2022 16:12:07 Lumbosacral radiculopathy 7963304 M54.17 Global Risk Assessment Score:Mode rate Risk. Moderate Risk Assessment : Multiple Pain or Medical Conditions (i.e., back, head and fibromyalg ia) Multiple Physicians treating patient's conditions History of early refills History of previous pain clinics History of legal or illegal substance use by first degree relatives, including treatments for abuse or dependence History/Di agnosis of Mental Health/Psy chiatric illnesses that may impact the patient's treatment with controlled substances History/Di agnosis of Mental Health/Psy chiatric illnesses that may impact the patient's treatment with controlled substances Non [place] resident Difficulty in contacting the patient ( i.e. multiple residences , multiple phone numbers/no phone, frequent out of town travel/out -of-state work) . KI (prescript ion drug monitoring report):As of 06/27/2022 reviewed and is appropriat e Last fill Osteoarthr itis of right knee joint 8095671375 65616 M17.11 Health Concerns Section Related Observation LastModified by Organization Detai ls LastModified Time None Recorded Concern Status LastModified by Organization Details LastModified Time None Recorded Advance Directives Directive None Recorded Payers Insurance Date Sequence Insurance Name Policy Number Policy Albarado Covered Member ID Albarado Member ID Guarantor Name 07/07/2022 1 [employer] (MEDICARE REPLACEMENT/ ADVANTAGE - HMO) [id number] Maggie Bedoya [id number] Maggie Bedoya 08/26/2022 1 [employer] - [employer]US (MEDICARE REPLACEMENT/ ADVANTAGE - HMO) Maggie Bedoya [id number] Maggie Bedoya Notes Date Note Type Note Provider Name and Address Organization Details Recorded Time 01/09/2022 text/html patient is here for a f/u from the LESI at L5-S1 she had with MD and she says she audra well, she says she had no complications, but reports she did start spotting and saw [facility] and is having some work up related to that, she says she has US planned today she says it started a couple of weeks after injection but did not know if it was related, says it stopped after a couple of days, she says she is feeling better wit her radiation of pain, reports more mobile. she says she is having a little lower back pain she though it was from having the female problem she says pain is a 3 not even enough to take meds for she usually takes celebrex and she only uses prn. she says she has completed PT and she is now doing that HEP. she reports the PT she did was not challenging for her, she says she was able to do that easily. she is having pain in the knee, she says she has bone on bone arthritis in the right knee, she says she has done arthroscopy, injections and she has seen MD last in 2017 and she has been having pain there for a while. she says all of the injections help some at first but do not last long, she says she went to arthritis treatment center, she says none lasted long. she says her knee improves with back injections, pain is more on the sides. right now the knee is feeling good. Kimberly Peres MD [address] [facility], [place], [address], [facility] 01/10/2022 12:38:40 07/03/2022 text/html Patient RTC for the management of her chronic low back pain and right OA knee.Since last visit patient reports has been stable. Patient states did have a fall since last visit. Fell on ice onto her right shoulder.-06/19/22 .Did not seek medical care at that time.Patient states the right shoulder is improving and performing stretching exercises. LESI: Right L5-S1 [id number] on 04/26/22.Day of procedure: 100% relief.2 weeks later 60% relief.Ongoing relief: intermittent pain with 60% relief. Patient is here for med refills today, reports compliance, states use of medication gives some relief and allows more physical function. Patient reports tolerating the medication well and denies any adverse effects including toxic effects, respiratory sedation, driving problems, or GI problems. Karon Elizalde, [employer] [address], [place], [address], [facility] 07/10/2022 18:02:41 OBGyn Episode No OBEpisode recorded.
--- NOTE | 2024-12-04 10:18 | EXP.PAIN.SOA ---
[facility] Disclaimer: The information contained in this section may have been updated after the patient was seen, as this information can be updated by other users. Medical History HLD (hyperlipidemia) HTN (hypertension) Vitamin E deficiency Surgical History History of arthroscopic knee surgery Family History Other Unknown family medical history Social History Smoking Status: Never smoker alcohol intake: current alcohol intake frequency: holidays/special occasions only counseling provided: none substance use type: denies use current occupational status: other Travel in the last 8 weeks?: None housing: house current occupational exposures/hazards: No caffeine: Yes PM Subjective & Objective Subjective Subjective:: Patient is a pleasant 68-year-old female who presents today for follow-up of bilateral infrapatellar nerve blocks on 11/19/2024. Today she rates her pain a 7 out of 10. She denies any new falls or injuries. She does state that she had at least 80 to 85% improvement following these injections however only really lasted 24 hours. Patient states that her pain immediately returned and it is still a dull aching sensation that is worse with increased activity. Patient does states she is interested in any help we may be able to provide. Patient had been still very interested in the RFA however at our last visit we had discussed that this is no longer covered by insurance. Her Vitor has been reviewed and is appropriate. Review of Systems: General: No recent weight changes, no fever, no sleep disturbances Respiratory: No cough, no shortness of air, no recurring pulmonary infections Cardiovascular/peripheral vascular: No chest pain, no palpitations, no edema, no shortness of breath Gastrointestinal: No new onset incontinence, normal bowel movements reported Genitourinary: No new onset incontinence Musculoskeletal: Bilateral knee pain Psychiatric: [Normal mood/affect] Neurological: [Denies weakness in extremities], [denies balance issues] Pain at rest (0-10 scale): 7 Objective Objective:: Physical Exam: General: Alert and oriented x3, no acute distress, pleasant and cooperative Lungs: Respirations even and unlabored, symmetrical chest expansion Eyes: PERRL Musculoskeletal: Flexion and extension of bilateral knees [spine] somewhat guarded secondary to pain, [antalgic gait noted] Neurological: Speech clear, no gross sensory deficit Has patient had previous pain injection?: Yes Percent improvement in pain since last injection: 80 to 85% improvement Conservative treatment options previously tried: Home exercise plan Length of treatment: Longer than 12 weeks Meds Home Medications and Allergies Home Medications ?Medication ?Instructions ?Recorded ?Confirmed ?Type escitalopram oxalate 10 mg tablet 10 mg PO DAILY 12/07/22 11/11/24 History hydrochlorothiazide 12.5 mg tablet 12.5 mg PO DAILY 12/07/22 11/11/24 History vitamin E (dl, acetate) 180 mg 180 mg PO DAILY 12/07/22 11/11/24 History (400 unit) capsule ibuprofen 800 mg tablet 800 mg PO TID OA pain #90 tabs 06/12/24 11/11/24 Rx calcium 315 mg (as 1 tab PO DAILY 09/23/24 11/11/24 History citrate)-vitamin D3 5 mcg (200 unit) tablet (Calcium Citrate + D) digestive enzymes 1 cap PO DAILY 09/23/24 11/11/24 History docusate sodium 100 mg capsule 100 mg PO DAILY PRN Laxative Effect 09/23/24 11/11/24 History (Dulcolax Stool Softener (docusate)) lansoprazole 30 mg capsule,delayed 30 mg PO DAILY 09/23/24 11/11/24 History release linaclotide 290 mcg capsule 290 mcg PO DAILY #30 caps 09/23/24 11/11/24 Rx (Linzess) psyllium husk 0.4 gram capsule 0.8 g PO DAILY 09/23/24 11/11/24 History (Metamucil) rosuvastatin 20 mg tablet 20 mg PO DAILY 09/23/24 11/11/24 History trazodone 50 mg tablet 50 mg PO HS 09/23/24 11/11/24 History valsartan 160 mg tablet 160 mg PO DAILY 09/23/24 11/11/24 History New Prescriptions to Start Prescriptions: Allergies Allergy/AdvReac Type Severity Reaction Status Date / Time ampicillin Allergy Verified 09/23/24 11:07 naproxen (From Naprosyn) Allergy Verified 09/23/24 11:07 Assessment and Plan *Assessment and plan (1) Osteoarthritis of left knee: Status: Acute Qualifiers: Osteoarthritis type: primary Qualified Code(s): M17.12 - Unilateral primary osteoarthritis, left knee Category: Medical Code(s): M17.12 - Unilateral primary osteoarthritis, left knee (2) Osteoarthritis of right knee: Status: Acute Qualifiers: Osteoarthritis type: primary Qualified Code(s): M17.11 - Unilateral primary osteoarthritis, right knee Category: Medical Code(s): M17.11 - Unilateral primary osteoarthritis, right knee Plan I did discuss with the patient related to her continuing knee pain that our office in [place] does still do the RFA's however it would be something that she could look into doing a pabon pay caban since it is no longer covered by insurance. We will reach out to this office and have them contact the patient and see if she would like to be scheduled for this. I did also discuss with the patient that I will send him a prescription of diclofenac 75 mg twice daily with a 2-week supply. Patient does not have any heart or kidney issues she was counseled to discontinue all other NSAIDs while taking this medication and to take it with food to minimize GI upset patient will be given a tentative 1 month follow-up here in our office. Patient has been instructed to contact the clinic with any concerns before the next appointment. Dr. Bucio has reviewed this note and agrees with this plan of care. This note was dictated using voice recognition software and make contain errors or omissions. All injections are used with Lidocaine, Bupivacaine and dexamethasone. Occasionally urine drug screen is needed to verify patient's compliance with our office pain contract. This is ordered based off specific treatments related to chronic pain with the potential to abuse certain medications.
[2024-12-04 10:37] VITALS: BP 150/69; BP 157/79; PULSE 77; RESP 16; O2SAT 95; BMI 33.3
== END 2024-12-04 23:59 | disposition home or self-care (01) ==
PROVIDERS: PCP Family Medicine; Visit Provider Nurse Practitioner Family
DX: M17.0 Bilateral primary osteoarthritis of knee (principal); Z98.890 Other specified postprocedural states; Z79.1 Long term (current) use of non-steroidal anti-inflammatories (NSAID)
CPT/HCPCS: 99212; G0463

== ENCOUNTER 2024-12-29 13:56 | Outpatient (POV) | payer MEDICARE, SELFPAY ==
--- OUTSIDE RECORDS SUMMARY | 2023-07-24 06:45 | XMS_ITS ---
Author Organization [facility] Address [address] [facility] [address] [place] [id number] Care Team Providers Care [employer] Name Role Phone Armando Corbett Primary Care Provider Grace Kelsey [phone] Allergies Allergen (clinical drug ingredient) Drug/Non Drug [...] 12.5 MG 1 cap(s) orally once a day; Duration: 30 day(s) Active Escitalopram Oxalate 10 MG 1 tab(s) orally once a day; Duration: 30 day(s) Active Magnesium 100 MG 2 tablets with meals Orally once a day Active Vitamin E 180 MG 1 capsule Orally Once a day; Duration: 30 day(s) Active HYDROcodone Bit-Homatrop MBr 5-1.5 [...] MG 1 capsule Orally Two times a day; Duration: 10 day(s) 07/24/2023 Active Eucrisa 2 % 1 lisa applied topically 2 times a day 08/24/2021 Not-Taking Metamucil 1 TBSP PO ONCE DAILY *Please review and pick correct strength-formula tion from [employer] options. If intended option is not shown, discontinue and re-order from Quick Search* Not-Taking MiraLax *Please review and pick correct strength-formula tion from [employer] options. If intended option is not shown, discontinue and re-order from Quick Search* Not-Taking busPIRone HCl 10 MG 1 tab(s) orally 2 times a day; Duration: 30 day(s) Not-Taking Vitamin E 400 UNIT 1 cap(s) orally once a day Not-Taking Bisoprolol-hydroCHLOROth iazide 5-6.25 MG 1 tab(s) orally twice a day; Duration: 90 days Not-Taking Terbinafine HCl 250 MG 1 tab(s) orally once a day; Duration: 42 day(s) Not-Taking Aspirin 81 MG 1 tab(s) orally once a day; Duration: 30 day(s) Not-Taking Doxycycline Hyclate 100 MG 1 capsule Orally Two times a day; Duration: 10 day(s) 06/26/2023 Active Celecoxib 200 MG Take 1 capsule by mouth once daily; Duration: 30 Active Lansoprazole 30 MG 1 cap(s) orally once a day; Duration: 30 day(s) Active Valsartan 80 MG 1 tab(s) orally once a day; Duration: 30 day(s) Active Rosuvastatin Calcium 5 MG 1 tab(s) orally once a day; Duration: 30 day(s) Active Vital Signs Blood pressure systolic 122 mm Hg 07/24/19 24 Blood pressure diastolic 78 mm Hg 024 Heart Rate 67 /min 07/24/2023 Height 63 in 07/24/2023 Weight 185.2 lbs 07/24/2023 BMI 32.80 kg/m2 07/24/2023 Encounters Encounter Location Date Provider Diagnosis [facility] [address] [place] [id number] 07/24/2023 R William Kelsey URI (upper respirato ry infection) J06.9 [...] 1 capsule Ora lly Two times a day; Duration: 10 day(s) 07/24/2023 Treatment Notes Assessment Notes Cough If symptoms persist after treatment, she is to obtain chest x-ray and return for follow-up. Pending Test Test Name Order Date CXR 07/24/2023 Next Appt Details Follow Up: 1 Week, 2 Weeks, prn, Reason: Progress Notes * FAYE MCRAENICOLASB:1955 (69 yo F)Acc No.[id number]:07/24/2023 Progress Notes Patient: MAGGIE MITCHELL Provider: Grace Kelsey M.D. :1955 A ge:67 Y S ex:Female Date:07/24/2023 Address:[address] [place] [address], [place], [id number] Pcp:Armando Corbett Subjective: * Chief Complaints: * [...] *Please review and pick correct strength-formulation from [employer] options. If intended option is not shown, discontinue and re-order from Quick Search*, Not- Taking MiraLax , Notes to Pharmacist: *Please review and pick correct strength- formulation from [employer] options. If intended option is not shown, [...] Examination: E NT/Respiratory: General Appearance: N AD. E ars: a uditory canals normal bilaterally, TM's WNL. N ose : congested. S inuses : non tender bilaterally. O ral cavity : postnasal drainage. H eart : R RR, normal S1 S2, no murmurs. Lungs: F ew upper airway rhonchi. No wheezes. Assessment: * Assessment: 1. U RI (upper respiratory infection) - J06.9 (Primary) 2 . C ough - R05.9? Plan: * Treatment: 2. C oubrittany I ing: CXR N O RECORD OF TESTING IN [employer] Notes: If symptoms persist after treatment, she is to obtain chest x-ray and return for follow-up.? * Procedure Codes: 9 4760 PULSE OX * Follow Up: 1 Week, 2 Weeks, prn * Images: Billing Information: * Visit Code: 24404 Office Visit, Est Pt., Level 3. * Procedure Codes: 45937 PULSE OX. * Electronic signature of Grace Kelsey MD on 12/29/2024 at 02:03 PM EDT Sign off status: Pending * Provider: Grace Kelsey M.D. Date: 07/24/2023 Generated for Printi ng/Faxing/eTransmitting on: 12/29/2024 02:03 PM EDT History and Physical Notes * Examination [...]
--- OUTSIDE RECORDS SUMMARY | 2024-07-01 07:45 | XMS_ITS ---
Author Organization [facility] Address [address] [facility] [address] [place] [id number] Care Team Providers Care Electronics Recycler Name Role Phone Armando Corbett Primary Care Provider [phone] Grace Kelsey [phone] Allergies Allergen (clinical drug ingredient) Drug/Non Drug Allergy documented on EMR Reaction Allergy Type Onset Date Status ampicillin Ampicillin Unknown Drug Allergy Activ e naproxen Naprosyn Unknown Drug Allergy Active REASON FOR VISIT hurts to swallow, has a lump on her jaw line Medications Medication SIG (Take, Route, Frequency, Duration) Notes Start Date End Date Status Gabapentin 100 MG 1-2 cap(s) orally 3 times a day 03/17/2021 Not-Taking Fluconazole 150 MG 1 tab(s) orally once 08/24/2021 Not-Taking Eucrisa 2 % 1 lisa applied topically 2 times a day 08/24/2021 Not-Taking Vitamin E 400 UNIT 1 cap(s) orally once a day Not-Taking Bisoprolol-hydroCHLOROth iazide 5-6.25 MG 1 tab(s) orally twice a day; Duration: 90 days Not-Taking busPIRone HCl 10 MG 1 tab(s) orally 2 times a day; Duration: 30 day(s) Not-Taking Metamucil 1 TBSP PO ONCE DAILY *Please review and pick correct strength-formula tion from [employer] options. If intended option is not shown, discontinue and re-order from Quick Search* Not-Taking Aspirin 81 MG 1 tab(s) orally once a day; Duration: 30 day(s) Not-Taking Terbinafine HCl 250 MG 1 tab(s) orally once a day; Duration: 42 day(s) Not-Taking MiraLax *Please review and pick correct strength-formula tion from [employer] options. If intended option is not shown, discontinue and re-order from Quick Search* Not-Taking HYDROcodone Bit-Homatrop MBr 5-1.5 MG/5ML 5 ml Orally every 6 hrs prn 07/24/2023 Not-Taking Doxycycline Hyclate 100 MG 1 capsule Orally Two times a day; Duration: 10 day(s) 06/26/2023 Not-Taking Doxycycline Hyclate 100 MG 1 capsule Orally Two times a day; Duration: 10 day(s) 07/24/2023 Not-Taking Lansoprazole 30 MG 1 cap(s) orally once a day; Duration: 30 day(s) Not-Taking Escitalopram Oxalate 10 MG 1 tab(s) orally once a day; Duration: 30 day(s) Active Valsartan 80 MG 1 tab(s) orally once a day; Duration: 30 day(s) Active hydroCHLOROthiazide 12.5 MG 1 cap(s) orally once a day; Duration: 30 day(s) Active Rosuvastatin Calcium 5 MG 1 tab(s) orally once a day; Duration: 30 day(s) Active Celecoxib 200 MG Take 1 capsule by mouth once daily; Duration: 30 Not-Taking Ibuprofen 800 MG 1 tablet with food or milk as needed Orally every 8 hrs Active Vitamin E 180 MG 1 capsule Orally Once a day; Duration: 30 day(s) Active Zithromax Z-Leopoldo 250 MG as directed Orally 07/01/2024 Active Magnesium 100 MG 2 tablets with meals Orally once a day Active Vital Signs Blood pressure systolic 128 mm Hg 07/01/19 25 Blood pressure diastolic 76 mm Hg 025 Heart Rate 82 /min 07/01/2024 Height 63 in 07/01/2024 Weight 190.6 lbs 07/01/2024 BMI 33.76 kg/m2 07/01/2024 Encounters Encounter Location Date Provider Diagnosis [facility] [address] [place] [id number] 07/01/2024 Grace Kelsey Acute pharyngitis J02.9 Assessments Encounter Date Diagnosis (ICD Code) Assessment Notes Treatment Notes Treatment Clinical Notes Section Notes 07/01/2024 Acute pharyngitis (ICD-10 - J02.9) Plan Of Treatment Medication Medication Name Sig Start Date Stop Date Notes Zithromax Z-Leopoldo 250 MG as directed Orally 07/01/2024 Next Appt Details Follow Up: prn, Reason: Progress Notes * FAYE MCRAEADOB:1955 (69 yo F)Acc No.[id number]:07/01/2024 Progress Notes Patient: SARMAD MITCHELL Provider: Grace Kelsey M.D. :1955 A ge:68 Y S ex:Female Date:07/01/2024 Address:[address] [place] [address], [place], [id number] Pcp:Armando Corbett Subjective: * Chief Complaints: * 1 . Hurts to swallow, has a lump on her jaw line. * HPI: E NT/respiratory: sore throat P t presents today with c/o pain and a lump on the right side of her neck. Pt sts that she noticed it Sunday evening. Pt sts that her throat is a little sore. Pt sts that the knot has gone down s ome but sts that it is still present and painful to touch.. Exposed to grandson with strep throat last week. * ROS: C ARDIOLOGY: no C hest [...] Injections , C-scope/ Baker/ Normal 2003, BTL 1972, Bilateral Carpal Tunnel release 12/2011, LT Knee [...] ,Years: , Determination:. * Medications: T aking Ibuprofen 800 MG Tablet 1 tablet with food or milk as needed Orally every 8 hrs , Taking Vitamin E 180 MG Capsule 1 capsule [...] tab(s) orally once a day , Not-Taking Celecoxib 200 MG Capsule Take 1 capsule by mouth once daily , Not-Taking Lansoprazole 30 MG Capsule Delayed Release 1 cap(s) orally once a day , Not-Taking Doxycycline Hyclate 100 MG Capsule 1 capsule Orally Two times a day , Not-Taking Doxycycline Hyclate 100 MG Capsule 1 capsule Orally Two times a day , Not-Taking HYDROcodone Bit-Homatrop MBr 5-1.5 MG/5ML Solution 5 [...] review and pick correct strength- formulation from [employer] options. If intended option is not shown, discontinue and re-order from Quick Search*, Not-Taking MiraLax , Notes to Pharmacist: *Please review and pick correct strength-formulation from [employer] options. If intended option is not shown, [...] orally 3 times a day , Discontinued predniSONE 10 MG Tablet 1 tablet 3 times daily x 5 days, then 1 tab 2 times daily x 5 days, then 1 tab daily x 5 days Orally , Medication List reviewed and reconciled with the patient * Allergies: N aprosyn, Ampicillin. Objective: * Vitals: W t:190.6, Temp:98.5, BP:128/76, HR:82, Nurse:ADRI, Ht: 63, BMI:33.76. * Examination: E NT/Respiratory: General Appearance: N AD. E yes: P ERRLA, sclera clear. E ars: a uditory canals normal bilaterally, TM's WNL. N ose : n ormal, no lesions, nares patent. O ral cavity : mild erythema of throat, no exudate. N chris : tender right submandibular gland. H eart : R RR, normal S1 S2, no murmurs. L ungs: c lear to auscultation bilaterally. Assessment: * Assessment: 1. A cute pharyngitis - J02.9 (Primary) Plan: * Treatment: * Follow Up: p rn * Images: Billing Information: * Visit Code: 43748 Office Visit, Est Pt., Level 3. * Procedure Codes: * Electronic signature of Grace Kelsey MD on 12/29/2024 at 02:03 PM EDT Sign off status: Pending * Provider: Grace Kelsey M.D. Date: 07/01/2024 Generated for Yandel chauhan/Nino/Bhupendraitting on: 12/29/2024 02:03 PM EDT History and Physical Notes * HPI (History of Present Illness) Category Sub-Category Detail Notes Category Not es ENT/respiratory sore throat Pt presents toda y with c/o pain and a lump on the right side of her neck. Pt sts that she noticed it Sunday evening. Pt sts that her throat is a little sore. Pt sts that the knot has gone down some but sts that it is still present and painful to touch. Exposed to grandson with strep throat last week Examination Category Sub-Category Detail Notes Category Not es ENT/Respiratory Oral cavity : mild erythema of throat, no exudate Ears: auditory canals norm al bilaterally, TM's WNL Neck : tender right submand ibular gland Heart : RRR, normal S1 S2, n o murmurs Lungs: clear to auscultatio n bilaterally General Appearance: NAD Nose : normal, no lesions, nares patent Eyes: PERRLA, sclera clear
--- OUTSIDE RECORDS SUMMARY | 2024-12-29 14:03 | XMS_ITS | Encounter Summary ---
Author Organization [employer] ([place], [place], [place], [place]) Address [address] [place] [address] Care Team Providers Care Director Of Market Research Name Role Phone Unavailable Primary Care Provider Unavailabl e Encounter Details Date Type Department Care Team (Late st Contact Info) Description 02/15/2022 Transcribed Document [facility] [place] [address] [place] [address] Social History Tobacco Use Types Packs/Day Years Used Date Smoking Tobacco: Never Assessed Comments Unknown Sex and Gender Information Value Date Recorded Sex Assigned at Not on file Legal Sex Female 5:36 PM CDT Gender Identity Not on file Sexual Orientation Not on file documented as of this encounter Miscellaneous Notes * Cerner Conversion Note - Evin ProviderMD - 02/15/2022 4:07 PM CDT [facility] Main OR IntraOp Summary Primary Physician: Armando MARTEL MD-OBG Finalized Date/Time: 02/16/22 08:16:15 Pt. Name: MAGGIE BEDOYA /Sex: 1955 Female Med Rec #: [id number] Physician: Armando MARTEL MD-OBG Financial #: [id number] Pt. Type: O Room/Bed: [facility]/ Admit/Disch: 02/15/22 05:08:00 - 02/15/22 16:59:00 Institution: [facility] IntraOp Case Attendance Entry 1 Entry 2 Entry 3 Case Attendee Armando MARTEL, YESSENIA PERALTA, RN Nikhil Taylor ST MD-OBG Role Performed Surgeon/Proceduralist, Wheel Cutter, First Scrub, First First Time In 02/15/22 15:48:00 02/15/22 15:48:00 02/15/22 15:48:00 Time Out 02/15/22 16:21:00 02/15/22 16:21:00 02/15/22 15:49:00 Procedure Uterine D and C Uterine D and C Uterine D and C Hysteroscopy Hysteroscopy, Myomectomy Hysteroscopy, Myomectomy Other Attendee Superficial Wound Closed By: Last Modified By: YESSENIA PERALTA, YESSENIA MALAVE, YESSENIA MALAVE, KAREN 02/15/22 16:23:31 02/15/22 16:23:31 02/15/22 16:24:07 Entry 4 Entry 5 Entry 6 Case Attendee KEITH SUAZO, METAL PATTERNMAKER APPRENTICE Anisa Ashley Brock, Deanna S, POWER PLANT MANAGER-NURSE HISTOTECHNICIAN Energy Sales Broker Role Performed METAL PATTERNMAKER APPRENTICE/Nurse Aviation Electrician Student Scrub, First Time In 02/15/22 15:48:00 02/15/22 15:48:00 02/15/22 15:48:00 Time Out 02/15/22 16:21:00 02/15/22 16:21:00 02/15/22 16:21:00 Procedure Uterine D and C Uterine D and C Uterine D and C Hysteroscopy, Myomectomy Hysteroscopy, Myomectomy Hysteroscopy, Myomectomy Other Attendee Superficial Wound Closed By: Last Modified By: YESSENIA PERALTA, YESSENIA MALAVE, YESSENIA MALAVE, KAREN 02/15/22 16:23:31 02/15/22 16:23:31 02/15/22 16:24:07 [facility] IntraOp Case Attendance Audit 02/15/22 16:24:07 Seed Analyst: KOURTNEY Modifier: KOURTNEY 3 <*> Time Out 02/15/22 16:21:00 3 <*> Procedure Uterine D and C Hysteroscopy, Myomectomy <+> 6 Role Performed <+> 6 Procedure 02/15/22 16:23:31 Seed Analyst: KOURTNEY Modifier: KOURTNEY <+> 1 Time Out <+> 1 Procedure 2 <+> Time Out 2 <*> Procedure Uterine D and C Hysteroscopy, Myomectomy 3 <+> Time Out 3 <*> Procedure Uterine D and C Hysteroscopy, Myomectomy 4 <+> Time Out 4 <*> Procedure Uterine D and C Hysteroscopy, Myomectomy 5 <+> Time Out 5 <*> Procedure Uterine D and C Hysteroscopy, Myomectomy <+> 6 Time Out 02/15/22 16:10:30 Seed Analyst: KOURTNEY Modifier: LEINSU 2 <*> Procedure Uterine D and C Hysteroscopy, Myomectomy 3 <*> Procedure Uterine D and C Hysteroscopy, Myomectomy 4 <*> Procedure Uterine D and C Hysteroscopy, Myomectomy 5 <*> Procedure Uterine D and C Hysteroscopy, Myomectomy <+> 6 Time In 02/15/22 16:09:17 Seed Analyst: KOURTNEY Modifier: STEFANIEU <+> 1 Time In 2 <+> Time In 2 <*> Procedure Uterine D and C Hysteroscopy, Myomectomy 3 <+> Time In 3 <*> Procedure Uterine D and C Hysteroscopy, Myomectomy 4 <+> Time In 4 <*> Procedure Uterine D and C Hysteroscopy, Myomectomy 5 <+> Time In 5 <*> Procedure Uterine D and C Hysteroscopy, Myomectomy <+> 6 Case Attendee 02/15/22 15:40:28 Seed Analyst: KOURTNEY Modifier: KOURTNEY 1 <*> Case Attendee Armando MARTEL MD-OBG 1 <*> Role Performed Surgeon/Proceduralist, First 2 <*> Case Attendee YESSENIA PERALTA, RN 2 <*> Role Performed Wheel Cutter, First 2 <*> Procedure Uterine D and C Hysteroscopy, Myomectomy 3 <*> Case Attendee Nikhil Taylor, 3 <*> Role Performed Scrub, First 3 <*> Procedure Uterine D and C Hysteroscopy, Myomectomy Entry 4 was deleted. Higher numbered entries shifted one position to fill the gap. <-> 4 Case Attendee JESUS MONTGOMERY, NA <-> 4 Role Performed METAL PATTERNMAKER APPRENTICE/Nurse Aviation Electrician <-> 4 Procedure Uterine D and C Hysteroscopy, Myomectomy 02/15/22 15:39:41 Seed Analyst: LEINSU Modifier: LEINSU <+> 5 Case Attendee <+> 5 Role Performed <+> 5 Procedure 02/15/22 15:38:36 Seed Analyst: LEINSU Modifier: LEINSU <+> 4 Case Attendee <+> 4 Role Performed <+> 4 Procedure [facility] IntraOp Case Times Entry 1 Patient In Room Time 02/15/22 15:48:00 Out Room Time 02/15/22 16:21:00 Anesthesia Start Time 02/15/22 15:48:00 Stop Time 02/15/22 16:21:00 Anesthesia Ready 02/15/22 15:48:00 Surgery / Procedure Times Start Time 02/15/22 16:07:00 Stop Time 02/15/22 16:18:00 Last Modified By: YESSENIA PERALTA RN 02/15/22 16:23:23 [facility] IntraOp Case Times Audit 02/15/22 16:23:23 Seed Analyst: LEINSU Modifier: LEINSU <+> 1 Out Room Time <+> 1 Stop Time 02/15/22 16:20:31 Seed Analyst: LEINSU Modifier: LEINSU <+> 1 Stop Time 02/15/22 16:07:43 Seed Analyst: LEINSU Modifier: LEINSU <+> 1 Start Time <+> 1 Start Time <+> 1 Anesthesia Ready [facility] IntraOp Communication Entry 1 Communication To Family/Significant other Communication By YESSENIA PERALTA, RN Last Modified By: YESSENIA PERALTA, KAREN 02/15/22 15:38:41 [facility] IntraOp Counts Verification Entry 1 Procedure Uterine D and C Hysteroscopy, Myomectomy Count Info Count Type Sponge, Sharps Counts Verification Baseline/pre-procedure Sequence Count Results Correct, surgeon notified Counts Performed By Count Performed By Nikhil Taylor ST (Scrub) Count Performed By YESSENIA PERALTA, RN (RN) Last Modified By: YESSENIA PERALTA, KAREN 02/15/22 15:38:21 [facility] IntraOp Counts Final Entry 1 Procedure Uterine D and C Hysteroscopy, Myomectomy Final Count Info Count Type Sponge Counts Verification Skin Closure/end of Sequence procedure Count Results Correct, surgeon notified Counts Performed By Count Performed By Kavitha Squires (Scrub) Energy Sales Broker Count Performed By YESSENIA PERALTA RN (RN) Last Modified By: YESSENIA PERALTA RN 02/15/22 16:11:22 [facility] IntraOp Cultures and Spec Summary Entry 1 Cultrures and Specimens Specimen Ordered: Yes Test(s) Routine/Path-Lab Requested/Final Disposition Last Modified By: YESSENIA PERALTA RN 02/15/22 15:40:34 [facility] IntraOp Departure from OR Entry 1 Integumentary Assessment Integumentary WDL Assessment WDL Transfer/Handoff Transfer to PACU Phase I Handoff Method Bedside/Face to face Post-op Transport Stretcher/Gurney Via Patient Transport YESSENIA PERALTA, KAREN, Accompanied by KEITH SUAZO CRNA Last Modified By: YESSENIA PERALTA RN 02/15/22 16:09:25 [facility] IntraOp Fire Risk Assessment Entry 1 Fire Info Surgical Site or 0- No Incision Above the Xyphoid Open O2 Source 0- No (Mask or Cannula) Available Ignition 1- Yes (ESU, Laser, Light Source) Fire Risk 1 Assessment Score Fire Score Fire Risk Yes Assessment Complete Fire Risk YESSENIA PERALTA RN Assessment Verified By Fire Risk 02/15/22 16:01:00 Assessment Verified Date/Time Fire Risk Standard Fire Yes Safety Precautions Followed Last Modified By: YESSENIA PERALTA RN 02/15/22 16:11:32 [facility] IntraOp General Case Purse Seining Hand 1 Case Information OR OR 04 SJE Case Level 1 Room Verified Yes Wound Class 2 - Clean-Contaminated Specialty Gynecology Anesthesia Type General ASA Class 3 Diagnosis Preop Diagnosis uterine fibroids Postop Same As Preop No Postop Diagnosis see surgeons postop note Wound Class Definitions Last Modified By: YESSENIA PERALTA RN 02/15/22 16:09:59 [facility] IntraOp General Case Data Audit 02/15/22 16:09:59 Seed Analyst: KOURTNEY Modifier: KOURTNEY 1 <+> ASA Class 1 <+> Wound Class 1 <*> Preop Diagnosis uterine myoma 1 <+> Postop Diagnosis [facility] IntraOp Intraoperative Assessment Entry 1 Valid History / Yes Physical in Chart Preoperative Yes Checklist Reviewed/Evaluated Allergies Reviewed Yes Patient is Latex No Sensitive Isolation Not applicable Precautions Noted Level of WDL Consciousness (WDL = Alert, Oriented to Person, Place, and Time) Skin Assessment Yes Verified Present Upon IVs Arrival to OR Last Modified By: YESSENIA PERALTA RN 02/15/22 15:39:01 [facility] IntraOp Intraoperative Equipment Entry 1 Equipment Intraop Monitoring Electrocardiogram Three lead placement (ECG) Electrode Placement Antiembolic Devices Scopes Photo/Video Documentation Last Modified By: YESSENIA PERALTA RN 02/15/22 15:39:15 [facility] IntraOp Patient Positioning Entry 1 Procedure Uterine D and C Hysteroscopy, Myomectomy Body Position Lithotomy Left Arm Position Secured on padded arm board Right Arm Position Secured on padded arm board Left Leg Position Secured in stirrup Right Leg Position Secured in stirrup Feet Uncrossed Yes Pressure Points Yes Checked Positioning Devices Arm Board, Stirrups/Leg Albarado, Sling, Pillows Positioned By YESSENIA PERALTA, KAREN, Armando MARTEL MD-OBG Position Verified Positioning Yes Verified by Anesthesia Positioning Yes Verified by Surgeon Last Modified By: YESSENIA PERALTA RN 02/15/22 15:39:53 [facility] IntraOp Patient Positioning Audit 02/15/22 15:39:53 Seed Analyst: STEFANIESuzy Modifier: RAMONSHILPI 1 <*> Procedure Uterine D and C Hysteroscopy, Myomectomy 1 <*> Positioned By Armando MARTEL MD-OBG [facility] IntraOp Sign In Entry 1 Patient, Site, Yes Procedure Identified Surgical Consent Yes Confirmed Relevant Surgical Yes Documents Available Surgical Site N/A Marked by person performing procedure Anesthesia Machine Yes Check Completed Medication Checks Yes Completed Allergies Yes Airway Difficult No Airway/Aspiration Risk Difficult Yes Airway/Aspiration Intervention Equipment Available Blood Loss Risk No Blood Loss No Intervention Equipment Prepared and Ready Blood Identifiers Not applicable Verified Per Policy Hypothermia Risk Yes Warming Measures Yes Taken Last Modified By: YESSENIA PERALTA RN 02/15/22 16:10:26 [facility] Intra Op Sign Out Entry 1 RN Confirmation Surgical Yes Procedure(s) Identified Instrument, Sponge Yes and Sharps Counts Correct/Documented Equipment Problems N/A Documented Specimen Labeled Yes Correctly Urinary Catheter N/A Documented in IView Wound Yes classification reviewed, verified and updated post case in both the General Case Data and Procedure segments Lisa Patient Yes Recovery Concerns Reviewed with Anesthesia Provider, Surgeon and RN Lisa Patient Yes Management Concerns Reviewed with Anesthesia Provider, Surgeon and RN Safety Checklist Yes Elements Complete? RN Sign Out YESSENIA PERALTA, RN Signature RN Sign Out 02/15/22 16:22:00 Signature Date/Time Plan of Care Outcome - Fire Risk OUTCOME STATEMENT: Goal met Patient is free from injury related to surgical fire Plan of Care Outcome - Pt Positioning OUTCOME STATEMENT: Goal met Absence of signs and symptoms of positioning injury. Plan of Care Outcome - Skin Prep OUTCOME STATEMENT: Goal met Intraoperative care is consistent with measures to prevent infection Plan of Care Outcome - Xray/Images OUTCOME STATEMENT: N/A Absence of observable signs or symptoms of radiation injury Plan of Care Outcome - Counts OUTCOME STATEMENT: Goal met Absence of signs and symptoms of injury related to extraneous objects Last Modified By: YESSENIA PERALTA RN 02/15/22 16:24:16 [facility] Intra Op Sign Out Audit 02/15/22 16:24:16 Seed Analyst: KOURTNEY Modifier: KOURTNEY <+> 1 RN Sign Out Signature Date/Time [facility] IntraOp Skin Prep Entry 1 Procedure Uterine D and C Hysteroscopy Prescribed Yes Pre-Surgical Prep Completed Prep Area VAGINA Intraop Prep Integumentary WDL Assessment WDL Prep Agents Betadine solution Prep by YESSENIA PERALTA, KAREN Hair Removal Last Modified By: YESSENIA PERALTA, KAREN 02/15/22 16:10:02 [facility] IntraOp Surgical Procedures Entry 1 Entry 2 Procedure Uterine D and C Myomectomy Hysteroscopy Modifiers Additional HYSTEROSCOPY DILATION Procedure AND CURETTAGE, Description MYOMECTOMY Primary Procedure Yes No Primary Surgeon Armando MARTEL GUILER, J MICHAEL, MD-OBG -OBG Start 02/15/22 16:07:00 02/15/22 16:07:00 Stop 02/15/22 16:18:00 02/15/22 16:18:00 Physician States Cecum Reached Anesthesia Type General General Specialty Gynecology Gynecology Wound Class 2 - Clean-Contaminated 2 - Clean-Contaminated Last Modified By: YESSENIA PERALTA, YESSENIA MALAVE, KAREN 02/15/22 16:24:08 02/15/22 16:24:08 [facility] IntraOp Surgical Procedures Audit 02/15/22 16:24:08 Seed Analyst: KOURTNEY Modifier: STEFANIEU <+> 1 Stop <+> 2 Stop 02/15/22 16:10:18 Seed Analyst: KOURTNEY Modifier: STEFANIEU 1 <*> Procedure Uterine D and C Hysteroscopy 1 <+> Start 1 <+> Wound Class 2 <*> Procedure Myomectomy 2 <+> Start 2 <+> Wound Class [facility] IntraOp Time Out Entry 1 Procedure to be Uterine D and C Performed Hysteroscopy, Myomectomy Time Out Time Out Pause Time 02/15/22 16:01:00 All activity Yes suspended (unless life threatening emergency) Team Verbally Correct patient Confirms Information identity, Correct side and site are marked, Consent form is present and accurate, Agreement on the procedure to be done, Correct patient position, Relevant images/results properly labeled/appropriately displayed, Confirm antibiotics have been administered, Confirm the skin prep has dried, Performed in location of procedure after prepped/draped, Performed before each procedure if multiple procedures Antibiotic Yes Prophylaxis Administered Or In Progress Within the Last 60 Minutes Beta Jose N/A Administered Venous Yes Thromboembolism Prophylaxis Required Anticipated Critical Events Surgeon None expected Anesthesia Provider Patient specific concerns Nursing Assures Sterility of instruments Essential Imaging Yes Labeled and Displayed Last Modified By: YESSENIA PERALTA RN 02/15/22 16:10:49 SJDarien IntraOp Time Out Audit 02/15/22 16:10:49 Seed Analyst: KOURTNEY Modifier: RAMONNSU 1 <+> Beta Jsoe Administered 1 <+> Venous Thromboembolism Prophylaxis Required 1 <+> Antibiotic Prophylaxis Administered Or In Progress Within the Last 60 Minutes 1 <+> Surgeon 1 <+> Anesthesia Provider 1 <+> Nursing Assures 1 <+> Essential Imaging Labeled and Displayed 1 <*> Procedure to be Performed Uterine D and C Hysteroscopy, Myomectomy 02/15/22 16:07:06 Seed Analyst: KOURTNEY Modifier: RAMONNSU 1 <+> Time Out Pause Time 1 <*> Procedure to be Performed Uterine D and C Hysteroscopy, Myomectomy Case Comments <None> Finalized By: Rosetta Sears, RN Document Signatures Signed By: YESSENIA PERALTA RN 02/15/22 16:26 YESSENIA PERALTA RN 02/15/22 16:29 Rosetta Sears, KAREN 02/16/22 08:16 Unfinalized History Date/Time Username Reason for Unfinalizing Freetext Reason for Unfinalizing 02/15/22 16:28 KOURTNEY Finish Documentation 02/16/22 08:15 ADAM Correct Billing Electronically signed by Julianna [facility] [employer] Professor Cerner at 10/08/2022 11:21 PM CDT documented in this encounter Plan of Treatment Not on file documented as of this encounter Visit Diagnoses Not on filedocumented in this encounter
--- OUTSIDE RECORDS SUMMARY | 2024-12-29 14:03 | XMS_ITS | Clinical Summary ---
Author Organization [employer] ([place], [place], [place], [place]) Address [address] [place] [address] Care Team Providers Care Lamination Operator Name Role Phone Unavailable Primary Care Provider Unavailabl e Social History Tobacco Use Types Packs/Day Years Used Date Smoking Tobacco: Never Assessed Comments Unknown Sex and Gender Information Value Date Recorded Sex Assigned at Not on file Legal Sex Female 5:36 PM CDT Gender Identity Not on file Sexual Orientation Not on file Plan of Treatment Not on file
--- OUTSIDE RECORDS SUMMARY | 2024-12-29 14:03 | XMS_ITS | Patient Health Record ---
[facility] Address [address] [facility] [address] [place] [id number] Care Team Providers Care Director Employee Safety And Health Name Role Phone Armando Corbett Primary Care Provider Grace Kelsey [phone] Allergies Allergen (clinical drug ingredient) Drug/Non Drug Allergy documented on EMR Reaction Allergy Type Onset Date Status ampicillin Ampicillin Unknown Drug Allergy Activ e naproxen Naprosyn Unknown Drug Allergy Active Medications Medication SIG (Take, Route, Frequency, Duration) Notes Start Date End Date Status Rosuvastatin Calcium 5 MG 1 tab(s) orally once a day; Duration: 30 day(s) Active Ibuprofen 800 MG 1 [...] a day; Duration: 10 day(s) 06/26/2023 Not-Taking Fluconazole 150 MG 1 tab(s) orally once 08/24/2021 Not-Taking Doxycycline Hyclate 100 MG 1 capsule Orally Two times a day; Duration: 10 day(s) 07/24/2023 Not-Taking Eucrisa 2 % 1 lisa applied topically 2 times a day 08/24/2021 Not-Taking Escitalopram Oxalate 10 MG 1 tab(s) orally once a day; Duration: 30 day(s) Active busPIRone HCl 10 MG 1 tab(s) orally 2 times a day; Duration: 30 day(s) Not-Taking Valsartan 80 MG 1 tab(s) orally once a day; Duration: 30 day(s) Active Metamucil 1 TBSP PO ONCE DAILY *Please review and pick correct strength-formula tion from MOMENTFACE SRO options. If intended option is not shown, discontinue and re-order from Quick Search* Not-Taking Zithromax Z-Leopoldo 250 MG as directed Orally 07/01/2024 Active Magnesium 100 MG 2 tablets with meals Orally once a day Active Aspirin 81 MG 1 tab(s) orally once a day; Duration: 30 day(s) Not-Taking hydroCHLOROthiazide 12.5 MG 1 cap(s) orally once a day; Duration: 30 day(s) Active Terbinafine HCl 250 MG 1 tab(s) orally once a day; Duration: 42 day(s) Not-Taking Celecoxib 200 MG Take 1 capsule by mouth once daily; Duration: 30 Not-Taking Vitamin E 400 UNIT 1 cap(s) orally once a day Not-Taking Lansoprazole 30 MG 1 cap(s) orally once a day; Duration: 30 day(s) Not-Taking Bisoprolol-hydroCHLOROth iazide 5-6.25 MG 1 tab(s) orally twice a day; Duration: 90 days Not-Taking MiraLax *Please review and pick correct strength-formula tion from MOMENTFACE SRO options. 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) Depression with anxiety (F41.8) Active confirmed Problem Hyperlipidemia (63401332) Hyperlipidemia, unspecified (E78.5) Active confirmed Problem Localized, 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) Active confirmed Problem Gastroesophageal reflux disease with esophagitis (614460826) Gastroesophageal reflux disease with esophagitis (K21.0) Active confirmed Problem Lumbosacral spondylosis without myelopathy (61779786) Spondylosis of lumbar region without myelopathy or radiculopathy (M47.816) Active confirmed Problem Body mass index 30.00 to 34.99 (126921481021287) BMI 34.0-34.9,adult (Z68.34) Active confirmed Problem Depressive disorder (disorder) (20923016) Depression, unspecified depression type (F32.9) Active confirmed Problem Menopause (136070909) Postmenopausal syndrome (N95.1) Active confirmed Problem Thyromegaly (5919075) Thyromegaly (E01.0) Active confirmed Vital Signs Heart Rate 82 /min 07/01/2024 Blood pressure diastolic 76 mm Hg 07/01/2024 Height 63 in 07/01/2024 Blood pressure systolic 128 mm Hg 07/01/2024 Weight 190.6 lbs 07/01/2024 BMI 33.76 kg/m2 07/01/2024 Encounters Encounter Location Date Provider Diagnosis [facility] [address] [place] [id number] 07/01/2024 Grace Kelsey Acute pharyngitis J02.9 Assessments Encounter Date Diagnosis (ICD Code) Assessment Notes Treatment Notes Treatment Clinical Notes Section Notes 07/01/2024 Acute pharyngitis (ICD-10 - J02.9) Plan Of Treatment Pending Test Test Name Order Date CXR 07/24/2023 Insurance Providers Payer Name Payer Address Payer Phone Subscriber Number Group Number Insured Name Patient Relationship to Insured Coverage Start Date Coverage End Date [employer] (MEDICAR E) [address] [address] [place] [phone] [id number] SARMAD MCRAE Self - patient is the [...] 6 rooster comb injections in left knee-Dr Santino Arriola/ Citlali/ nicolasa tics/ 5 year f/u recommended 2011 Hospitalization History Reason Date(Month/Year) [facility] ER, lost memory 10/27/07
--- OUTSIDE RECORDS SUMMARY | 2024-12-29 14:03 | XMS_ITS | Encounter Summary ---
Author Organization [employer] ([place], [place], [place], [place]) Address [address] [place] [address] Care Team Providers Care X Ray Operator Name Role Phone Unavailable Primary Care Provider Unavailabl e Encounter Details Date Type Department Care Team (Late st Contact Info) Description 02/15/2022 Transcribed Document [facility] [place] Family Medicine [facility] [place] [address] ProviderEvin MD [address] [place] [address] Social History Tobacco Use Types Packs/Day Years Used Date Smoking Tobacco: Never Assessed Comments Unknown Sex and Gender Information Value Date Recorded Sex Assigned at Not on file Legal Sex Female 5:36 PM CDT Gender Identity Not on file Sexual Orientation Not on file documented as of this encounter Miscellaneous Notes * Cerner Conversion Note - Evin ProviderMD - 02/15/2022 4:15 PM CDT Patient Education Materials Follows: Hysteroscopy, Care After This sheet gives you information about how to care for yourself after your procedure. Your health care provider may also give you more specific instructions. If you have problems or questions, contact your health care provider. What can I expect after the procedure? After the procedure, it is common to have: ??? Cramping. ??? Bleeding. This can vary from light spotting to menstrual-like bleeding. Follow these instructions at home: Activity ??? Rest for 1?2 days after the procedure. ??? Do not douche, use tampons, or have sex for 2 weeks after the procedure, or until your health care provider approves. ??? Do not drive for 24 hours after the procedure, or for as long as told by your health care provider. ??? Do not drive, use heavy machinery, or drink alcohol while taking prescription pain medicines. Medicines ??? Take jwlu-jwo-epkmzdi and prescription medicines only as told by your health care provider. ??? Do not take aspirin during recovery. It can increase the risk of bleeding. General instructions ??? Do not take baths, swim, or use a hot tub until your health care provider approves. Take showers instead of baths for 2 weeks, or for as long as told by your health care provider. ??? To prevent or treat constipation while you are taking prescription pain medicine, your health care provider may recommend that you: ? Drink enough fluid to keep your urine clear or pale yellow. ? Take cywb-cjn-yyxicpf or prescription medicines. ? Eat foods that are high in fiber, such as fresh fruits and vegetables, whole grains, and beans. ? Limit foods that are high in fat and processed sugars, such as fried and sweet foods. ??? Keep all follow-up visits as told by your health care provider. This is important. Contact a health care provider if: ??? You feel dizzy or lightheaded. ??? You feel nauseous. ??? You have abnormal vaginal discharge. ??? You have a rash. ??? You have pain that does not get better with medicine. ??? You have chills. Get help right away if: ??? You have bleeding that is heavier than a normal menstrual period. ??? You have a fever. ??? You have pain or cramps that get worse. ??? You develop new abdominal pain. ??? You faint. ??? You have pain in your shoulders. ??? You have shortness of breath. Summary ??? After the procedure, you may have cramping and some vaginal bleeding. ??? Do not douche, use tampons, or have sex for 2 weeks after the procedure, or until your health care provider approves. ??? Do not take baths, swim, or use a hot tub until your health care provider approves. Take showers instead of baths for 2 weeks, or for as long as told by your health care provider. ??? Report any unusual symptoms to your health care provider. ??? Keep all follow-up visits as told by your health care provider. This is important. This information is not intended to replace advice given to you by your health care provider. Make sure you discuss any questions you have with your health care provider. Document Revised: 05/24/2018 Document Reviewed: 07/10/2017 [employer] Patient Education ? 2020 [employer] Pharmacology General Anesthesia, Adult, Care After This sheet gives you information about how to care for yourself after your procedure. Your health care provider may also give you more specific instructions. If you have problems or questions, contact your health care provider. What can I expect after the procedure? After the procedure, the following side effects are common: ??? Pain or discomfort at the IV site. ??? Nausea. ??? Vomiting. ??? Sore throat. ??? Trouble concentrating. ??? Feeling cold or chills. ??? Feeling weak or tired. ??? Sleepiness and fatigue. ??? Soreness and body aches. These side effects can affect parts of the body that were not involved in surgery. Follow these instructions at home: For the time period you were told by your health care provider: ??? Rest. ??? Do not participate in activities where you could fall or become injured. ??? Do not drive or use machinery. ??? Do not drink alcohol. ??? Do not take sleeping pills or medicines that cause drowsiness. ??? Do not make important decisions or sign legal documents. ??? Do not take care of children on your own. Eating and drinking ??? Follow any instructions from your health care provider about eating or drinking restrictions. ??? When you feel hungry, start by eating small amounts of foods that are soft and easy to digest (bland), such as toast. Gradually return to your regular diet. ??? Drink enough fluid to keep your urine pale yellow. ??? If you vomit, rehydrate by drinking water, juice, or clear broth. General instructions ??? If you have sleep apnea, surgery and certain medicines can increase your risk for breathing problems. Follow instructions from your health care provider about wearing your sleep device: ? Anytime you are sleeping, including during daytime naps. ? While taking prescription pain medicines, sleeping medicines, or medicines that make you drowsy. ??? Have a responsible adult stay with you for the time you are told. It is important to have someone help care for you until you are awake and alert. ??? Return to your normal activities as told by your health care provider. Ask your health care provider what activities are safe for you. ??? Take zfom-wqv-nvsrajs and prescription medicines only as told by your health care provider. ??? If you smoke, do not smoke without supervision. ??? Keep all follow-up visits as told by your health care provider. This is important. Contact a health care provider if: ??? You have nausea or vomiting that does not get better with medicine. ??? You cannot eat or drink without vomiting. ??? You have pain that does not get better with medicine. ??? You are unable to pass urine. ??? You develop a skin rash. ??? You have a fever. ??? You have redness around your IV site that gets worse. Get help right away if: ??? You have difficulty breathing. ??? You have chest pain. ??? You have blood in your urine or stool, or you vomit blood. Summary ??? After the procedure, it is common to have a sore throat or nausea. It is also common to feel tired. ??? Have a responsible adult stay with you for the time you are told. It is important to have someone help care for you until you are awake and alert. ??? When you feel hungry, start by eating small amounts of foods that are soft and easy to digest (bland), such as toast. Gradually return to your regular diet. ??? Drink enough fluid to keep your urine pale yellow. ??? Return to your normal activities as told by your health care provider. Ask your health care provider what activities are safe for you. This information is not intended to replace advice given to you by your health care provider. Make sure you discuss any questions you have with your health care provider. Document Revised: 02/24/2021 Document Reviewed: 09/23/2020 [employer] Patient Education ? 2021 [employer] documented in this encounter Plan of Treatment Not on file documented as of this encounter Visit Diagnoses Not on filedocumented in this encounter
--- OUTSIDE RECORDS SUMMARY | 2024-12-29 14:03 | XMS_ITS | Patient Health Record ---
Author Organization [facility] Address [address] [facility] [facility] [address] [place] [address] Care Team Providers Care Milking Machine Technician Name Role Phone Annemarie Pulido Unavailable [phone] Allergies Allergen (clinical drug ingredient) Drug/Non Drug [...] Status Risk Notes Problem Hormone replacement therapy (602515426) Counseling for estrogen replacement therapy (Z79.890) Active confirmed Hormone replacement therapy Problem Menopause (844950187) *Menopausal and female climacteric states (Code also, associated symptoms) (N95.1) Active confirmed Menopausal and female climacteric states Problem Gynecological examination abnormal (18577082868963 3) *Medical Director Occupational Health exam with abnormal finding (Code also - abnormal finding(s) (Z01.411) Active confirmed Annual with abnormal findings Problem Gynecological examination normal (38042637614643 4) Cervical smear, as part of routine gynecological examination (Z01.419) Active confirmed Annual without abnormal findings Problem Confusional state (disorder) (133971144) 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
--- OUTSIDE RECORDS SUMMARY | 2024-12-29 14:03 | XMS_ITS | Referral Summary ---
Author Organization [employer] ([place], [place], [place], [place]) Address [address] [place] [address] Care Team Providers Care Train Driver Name Role Phone Unavailable Primary Care Provider [...]
--- OUTSIDE RECORDS SUMMARY | 2024-12-29 14:03 | XMS_ITS | Encounter Summary ---
Author Organization [employer] ([place], [place], [place], [place]) Address [address] [place] [address] Care Team Providers Care Shuttle Preparation Supervisor Name Role Phone Unavailable Primary Care Provider Unavailabl e Encounter Details Date Type Department Care Team (Late st Contact Info) Description 02/15/2022 Transcribed Document [facility] [place] [address] [place] [address] ProviderEvin MD [address] [place] [address] Social History Tobacco Use Types Packs/Day Years Used Date Smoking Tobacco: Never Assessed Comments Unknown Sex and Gender Information Value Date Recorded Sex Assigned at Not on file Legal Sex Female 5:36 PM CDT Gender Identity Not on file Sexual Orientation Not on file documented as of this encounter Miscellaneous Notes * Cerner Conversion Note - Evin ProviderMD - 02/15/2022 4:44 [place] [address] MAGGIE MCRAE :1955 Visit Time:02/15/2022 What to do next Follow-Up Appointments Follow Up with Armando MARTEL MD-[facility] When Comments Keep appt as directed Where: [address] [place] [phone] Medications What How Much When Instructions Next Dose aspirin (aspirin 81 mg oral capsule) 1 Capsule(s) Oral Every Day celecoxib (CeleBREX 200 mg oral capsule) 1 Capsule(s) Oral Every Day cyanocobalamin (Vitamin B12) See instructions 1,000 mcg IntraMuscular Monthly gemfibrozil (gemfibrozil 600 mg oral tablet) 1 Tablet(s) Oral Two Times A Day hydroCHLOROthiazide 12.5 Milligram(s) Oral Every Day terbinafine (Terbinafine) 280 Milligram(s) Oral Every Day valsartan 80 Milligram(s) Oral Two Times A Day vitamin E (vitamin E 400 intl units oral capsule) 1 Capsule(s) Oral Every Day Take your medications faithfully. Do NOT skip medication. Do NOT stop taking medications without the direction of a physician. Carry a list of your medications with you at all times, and take this medication list with you to your first follow up visit. Report any side effects. Avoid herbal remedies unless discussed with your physician. As part of your treatment plan, your physician may have prescribed a limited course of a controlled substance. This medication may be given to help people with moderate or severe pain or for other medical conditions, but there are risks involved with treatment. Common side effects may include nausea, constipation, drowsiness, sweating, itching, dry mouth, and rash. More serious side effects may include cognitive and motor impairment, like problems with thinking, concentrating, alertness, and movement (e.g. slowed reflexes), and driving and operating heavy machinery can be dangerous. It is important for you to talk to your physician if you have these side effects or questions. These controlled substances can produce physical dependence and be habit-forming if taken for an extended period of time, which means that the body has gotten used to them and may experience withdrawal symptoms if they are abruptly stopped. Withdrawal symptoms can include runny nose, sweating, goose bumps, diarrhea, abdominal cramping, rapid heartbeat, difficulty sleeping, and nervousness. Please dispose of unused and medications per pharmacy guidance. Education Materials Hysteroscopy, Care After This sheet gives you [...] instructions at home: Activity ??? Rest for 1???2 days after the procedure. ??? Do not [...] taking prescription pain medicines. Medicines ??? Take laqm-ijf-amdxdup and prescription medicines only as told by [...] urine clear or pale yellow. ? Take obvy-dyj-anpyshl or prescription medicines. ? Eat foods that [...] provider. Document Revised: 05/24/2018 Document Reviewed: 07/10/2017 [employer] Patient Education ?? 2020 [employer] General Anesthesia, Adult, Care After This sheet [...] activities are safe for you. ??? Take dxac-vkf-hzkghsp and prescription medicines only as told by [...] provider. Document Revised: 02/24/2021 Document Reviewed: 09/23/2020 Else[employer] Patient Education ?? 2021 [employer]. Emergency Awareness and Preventative Care STROKE is an EMERGENCY Every Minute Counts Act FAST and Check for these signs: FACE Does the face look uneven? ARM Does one arm drift down? SPEECH Does their speech sound strange? TIME Call at any sign of stroke Stroke Risk Factors Atrial Fibrillation (irregular heartbeat) Diabetes Family history of stroke Heart Disease Heavy alcohol use High Blood Pressure High Cholesterol Physical inactivity and obesity Smoking Cigarette Smoking The facts are clear, cigarette smoking will shorten your life. Smoking can cause many illnesses along the way. As a healthcare provider, we recommend that you stop smoking. Assistance with quitting is available by contacting 6-952-WTFI-NOW. This is a free resource providing counseling, support, and referral. Or you may contact your personal physician. [employer] Suicide Prevention Lifeline: The National Suicide Prevention Lifeline is a national network of local crisis centers that provides free and confidential emotional support to people in suicidal crisis or emotional distress 24 hours a day, 7 days a week. Don't Wait! Stop a Heart Attack Before it Starts What is a heart attack? A heart attack is damage or to a part of the heart from severely decreased or lack of blood flow to the heart. Over time, arteries can become narrow from the buildup of fat and cholesterol, which is called plaque. The plaque can rupture causing a blood clot to form. When the blood clot forms, the artery can become severely narrowed or completely blocked, causing a heart attack. Heart attack is the leading cause of in the [place]. 85% of muscle damage occurs within the first 2 hours. Delay in the recognition of heart attack symptoms increases the chances of . Know the early symptoms of a heart attack: Nausea Feeling of fullness in chest Jaw Pain Pain that travels down one or both arms Fatigue/being tired Anxiety Back Pain Chest pressure, squeezing, or discomfort Shortness of breath Sweating, or a cold sweat Feeling of impending doom There are unusual signs of a heart attack, too! Women, the elderly, and diabetics may present with atypical symptoms: Fainting/dizziness Weakness Confusion Risk Factors for a Heart Attack Some heart disease risk factors, such as age and family history, cannot be changed. Others, like smoking and lack of exercise, can be changed. Smoking High Cholesterol High Blood Pressure Family History Obesity Age Gender (Males are at higher risk) Lack of Exercise Diabetes Diet Stress Excessive Alcohol Intake If you or someone you know is experiencing the signs and symptoms of a heart attack, DON???T DELAY. Call immediately and seek help. If someone collapses, perform CPR! Do not attempt to drive if you are having symptoms of heart attack. Hands-Only CPR Why Hands-Only CPR? Hands-Only CPR has been shown to be as effective as conventional CPR for cardiac arrests that occur outside of a hospital. Survival depends on immediately receiving CPR from someone nearby. How do you perform Hands-Only CPR? There are two easy steps: Call if you see a teen or adult collapse Push hard and fast in the center of the chest at a beat of 100 beats per minute. Save a life! 4 WAYS TO GET AHEAD OF SEPSIS SEPSIS is a MEDICAL EMERGENCY. Time matters! Infections put you and your family at risk for a life-threatening condition called sepsis. Sepsis is the body's extreme response to an infection. It is life-threatening, and without timely treatment, sepsis can rapidly lead to tissue damage, organ failure, and . Sepsis happens when an infection you already have-in your skin, lungs, urinary tract or somewhere else-triggers a chain reaction throughout your body. 1 PREVENT INFECTIONS Take good care of chronic conditions. Talk to your doctor about getting the recommended vaccines. 2 PRACTICE GOOD HYGIENE Wash your hands frequently. Keep cuts or open sores clean and covered until they are healed. 3 KNOW THE SYMPTOMS Confusion or disorientation Shortness of breath High heart rate Fever, shivering, or feeling very cold Extreme pain or discomfort Clammy or sweaty skin 4 ACT FAST Get medical care IMMEDIATELY if you suspect sepsis or if you have an infection that is not getting better or is getting worse. To learn more about sepsis and how to prevent infections, visit www.cdc.gov/sepsis. Test Results Laboratory or Other Results This Visit (last charted value for your 02/15/2022 visit) Hematology 02/13/2022 11:01 AM WBC: 6.1 K/uL -- Normal range between ( 3.9 and 10.0 ) RBC: 4.34 Million/uL -- Normal range between ( 3.93 and 5.22 ) Hct: 38.8 % -- Normal range between ( 34.1 and 44.9 ) Hgb: 13.1 Gram/dL -- Normal range between ( 11.2 and 15.7 ) Platelet Count: 389 K/uL -- Normal range between ( 163 and 369 ) MCH: 30.2 pg -- Normal range between ( 25.6 and 32.2 ) MCHC: 33.8 Gram/dL -- Normal range between ( 32.3 and 36.5 ) MCV: 89.4 fL -- Normal range between ( 79.0 and 94.8 ) Slide Review: No Eos %: 1.3 % -- Normal range between ( 1.0 and 7.0 ) Eagle #: 0.67 K/uL -- Normal range between ( 0.24 and 0.82 ) Eos #: 0.08 K/uL -- Normal range between ( 0.04 and 0.54 ) Eagle %: 11.0 % -- Normal range between ( 4.7 and 12.5 ) Baso %: 1.0 % -- Normal range between ( 0.0 and 1.0 ) Baso #: 0.06 K/uL -- Normal range between ( 0.01 and 0.08 ) RDW: 14.7 % -- Normal range between ( 11.6 and 14.4 ) Neut %: 60.6 % -- Normal range between ( 34.0 and 71.0 ) Neut #: 3.68 K/uL -- Normal range between ( 1.56 and 6.13 ) Lymph %: 25.8 % -- Normal range between ( 19.3 and 53.0 ) Lymph #: 1.57 K/uL -- Normal range between ( 1.18 and 3.74 ) MPV: 11.1 fL -- Normal range between ( 9.4 and 12.4 ) IG#: 0 x10(3)/uL IG%: 0 % -- Normal range between ( 0 and 1 ) General Chemistry 02/13/2022 11:01 AM Creatinine Level: 1.28 mg/dL -- Normal range between ( 0.55 and 1.02 ) Sodium Level: 139 mmol/L -- Normal range between ( 136 and 146 ) Potassium Level: 4.1 mmol/L -- Normal range between ( 3.5 and 5.1 ) Chloride Level: 104 mmol/L -- Normal range between ( 102 and 112 ) Carbon Dioxide Level: 28 mmol/L -- Normal range between ( 21 and 32 ) Anion Gap: 11 -- Normal range between ( 9 and 20 ) Bilirubin Total: 0.3 mg/dL -- Normal range between ( 0.2 and 1.3 ) A/G Ratio: 1.0 -- Normal range between ( 1.1 and 2.5 ) ALT: 42 Units/Liter -- Normal range between ( 12 and 78 ) AST: 25 Units/Liter -- Normal range between ( 5 and 37 ) Globulin: 4.0 Gram/dL -- Normal range between ( 1.5 and 4.5 ) Alk Phos: 79 Units/Liter -- Normal range between ( 27 and 136 ) Bun/Creatinine: 16.4 -- Normal range between ( 8.0 and 20.0 ) Calcium Level: 9.5 mg/dL -- Normal range between ( 8.5 and 10.1 ) eGFR : 50 mL/min/1.73m2 eGFR NonAfrican: 41 mL/min/1.73m2 Glucose Level: 90 mg/dL -- Normal range between ( 74 and 106 ) Blood Urea Nitrogen: 21 mg/dL -- Normal range between ( 7 and 22 ) Protein Total: 7.9 Gram/dL -- Normal range between ( 6.4 and 8.2 ) Albumin Level: 3.9 Gram/dL -- Normal range between ( 3.4 and 5.0 ) Patient Name:MAGGIE MCRAE Darryl I have received this information and was given the opportunity to ask questions. Patient/Manager Heavy Equipment Name: Patient/Manager Heavy Equipment Signature: Relationship to Patient: Clinician/Hospital Manager Heavy Equipment Signature: Date: documented in this encounter Plan of Treatment Not on file documented as of this encounter Visit Diagnoses Not on filedocumented in this encounter
--- OUTSIDE RECORDS SUMMARY | 2024-12-29 14:03 | XMS_ITS | Clinical Summary ---
Author Organization [facility] Address [address] [place] [address] Care Team Providers Care Race Car Driver Name Role Phone System, Referring Not In [...] of Treatment Not on file Care Teams Race Car Driver Relationship Specialty Start Date End Date System, Referring Not In PCP - General 08/09/10
--- OUTSIDE RECORDS SUMMARY | 2024-12-29 14:03 | XMS_ITS | Encounter Summary ---
Author Organization [employer] ([place], [place], [place], [place]) Address [address] [place] [address] Care Team Providers Care Demi Chef Name Role Phone Unavailable Primary Care Provider Unavailabl e Encounter Details Date Type Department Care Team (Late st Contact Info) Description 02/15/2022 Transcribed Document [facility] [place] Medicine Count [facility] the [facility] [place] [address] ProviderEvin MD [address] [place] [address] Social History Tobacco Use Types Packs/Day Years Used Date Smoking Tobacco: Never Assessed Comments Unknown Sex and Gender Information Value Date Recorded Sex Assigned at Not on file Legal Sex Female 5:36 PM CDT Gender Identity Not on file Sexual Orientation Not on file documented as of this encounter Miscellaneous Notes * Cerner Conversion Note - Evin ProviderMD - 02/15/2022 2:13 PM CDT PAT Adult Entered On: 02/15/2022 14:14 EDT Performed On: 02/15/2022 14:13 EDT by SABRINA ESPINOSA RN Vital Measurements Temperature Source : Temporal artery scanning Temperature Mode : Fahrenheit Temperature, Fahrenheit : 96.6 Deg F (LOW) Clinical Temperature, C : 35.9 Deg C Pulse Method : Non-Invasive BP Device Peripheral Pulse Rate : 85 bpm Respiratory Rate : 16 Breaths/Min Blood Pressure Location : Arm, left upper Blood Pressure Source : Non-Invasive BP Device Blood Pressure Position : Sitting Systolic Blood Pressure : 141 mmHg (HI) Diastolic Blood Pressure : 65 mmHg Oxygen Saturation : 97 % Oxygen Therapy Mode : Room air SABRINA ESPINOSA RN - 02/15/2022 14:13 EDT Pain Assessment Pain Assessment : Initial assessment Pain Scale Goal : 3 Pain Scale Used : 0-10 Scale SABRINA ESPINOSA RN - 02/15/2022 14:13 EDT Height and Weight, Clinical Dosing Height Source : Measured Height Entry Format : [place] Height, Feet : 5 ft(Converted to: 152 cm, 60 Inch) Height, Inches : 3 Inch(Converted to: 0 ft 3 Inch, 7.62 cm) Clinical Height : 160.02 cm Weight Source : Standing scale Weight Entry Format : [place] Clinical Dosing Weight : 84.73 kg Weight, Pounds : 186.4 lb Body Surface Area (BSA) : 1.88 m2 Body Mass Index : 33.1 kg/m2 (HI) [place] Body Weight : 52 kg SABRINA ESPINOSA RN - 02/15/2022 14:13 EDT Health Histories Smoking Status : Never (less than 100 in lifetime; none in last 30 days) Smokeless Tobacco Status : Never SABRINA ESPINOSA RN - 02/15/2022 14:13 EDT Social History (As Of: 02/15/2022 14:14:48 EDT) Tobacco: Never (less than 100 in lifetime) Smoking Status. Never Smokeless Tobacco Status. (Last Updated: 02/13/2022 11:05:22 EDT by Soco Page RN) Alcohol: Alcohol Use History Yes. Alcohol Use Frequency Socially. (Last Updated: 02/13/2022 11:05:32 EDT by Soco Page, KAREN) Substance Abuse: Drug Use Hx: No. Use in Last 12 Months: No. (Last Updated: 02/13/2022 11:05:36 EDT by Soco Page RN) Infectious Disease History Does patient have symptoms of COVID-19? : No Tested for COVID19 in the past 14 days : No, Patient stated Does the Patient state known exposure to a COVID-19 positive case in the last 14 days? : No Patient Vaccinated for COVID-19 : Fully vaccinated SABRINA ESPINOSA RN - 02/15/2022 14:13 EDT Infectious Disease Risk Screening Grid Cough < 2 wks of unknown origin : NO Cough > 2 weeks : NO Blood in Sputum : NO Fever or self-reported Fever : NO Rash of unknown origin : NO Headache : NO Stiff neck : NO Night Sweats : NO Unexplained Weight Loss : NO Diarrhea (3 episode per day) : NO SABRINA ESPINOSA RN - 02/15/2022 14:13 EDT Physical contact outside [place] in the last 30 days : No Hospitalized in Foreign Country : No Infectious Disease History : Chicken pox/Shingles INF Disease TB Screening Calc : 0 INF Disease Recent Travel Calc : 0 SABRINA ESPINOSA RN - 02/15/2022 14:13 EDT COVID19 PreProcedure Screening Is this an Emergent or Add on Procedure? : No Date PreProcedure COVID-19 test known? : No Has patient been isolated since the test : No Exposed to COVID19 symptoms since test? : No SABRINA ESPINOSA RN - 02/15/2022 14:13 EDT Anesthesia/Transfusion History Family History of Anesthesia Reaction : No prior transfusion(s) Transfusion History : Prior anesthesia without reaction Family History of Anesthesia Reaction : None SABRINA ESPINOSA RN - 02/15/2022 14:13 EDT Functional Assessment Functional ADL Evaluation Index EBN Bathing : Independent (2) Dressing : Independent (2) Toileting : Independent (2) Transferring Bed or Chair : Independent (2) Continence : Independent (2) Feeding : Independent (2) SABRINA ESPINOSA RN - 02/15/2022 14:13 EDT ADL Index Score : 12 SABRINA ESPINOSA RN - 02/15/2022 14:13 EDT Advance Directive Patient has Advance Directive *Q : No, patient refuses Advance Directive information SABRINA ESPINOSA RN - 02/15/2022 14:13 EDT Spiritual/Cultural Needs Any Spiritual/Cultural Needs or Requests : Yes SABRINA ESPINOSA RN - 02/15/2022 14:13 EDT Model Suicide Severity Rating Scale (C-SSRS) CSSRS Past Month Wish to be : No CSSRS Past Month Suicidal Thoughts : No CSSRS Lifetime Suicide Behavior : No Suicide Severity Rating Score : 0 Suicide Severity Rating : No Additional Care Required at this time SABRINA ESPINOSA RN - 02/15/2022 14:13 EDT Psychosocial History Currently in Unsafe Situation : No SABRINA ESPINOSA RN - 02/15/2022 14:13 EDT Teaching/Learning Assessment Barriers To Learning : None evident Individuals Taught : Patient Learning Style Preferences Patient : Printed materials, Verbal explanation SABRINA ESPINOSA RN - 02/15/2022 14:13 EDT General Info Arrived From : Home Mode of Arrival on Unit : Ambulatory Legal Guardian : Unaccompanied [place] Family/Rep/Phys Notified of Admit : No Emergency Contact #1 : Osmani Sheikh Emergency Contact #1 Emergency Contact #1 Relationship : Son Emergency Contact #2 : . Emergency Contact #2 Phone Number : . Emergency Contact #2 Relationship : . Primary Language : Hong Konger Preferred Communication Mode : Verbal Communication Barrier : None Equipment Man Needed : No SABRINA ESPINOSA RN - 02/15/2022 14:13 EDT Sumit Scale Sumit Sensory Perception : No impairment Sumit Moisture : Rarely moist Sumit Activity : Walks frequently Sumit Mobility : No limitation Sumit Nutrition : Adequate Sumit Friction and Shear : No apparent problem Sumit Score : 22 SABRINA ESPINOSA RN - 02/15/2022 14:13 EDT Sleep Apnea Risk Assmt Hx of Obstructive Sleep Apnea Diagnosis : No Snore Loudly : No Tired, Fatigued, or Sleepy During Day : Yes Observed Stopping Breathing During Sleep : No Have/Are Being Treated for Hypertension : Yes BMI Greater Than 35 kg/m2 : No Age over 50 Years Old : Yes Neck Circumference Greater Than 40 cm : No Gender Male : No STOP-BANG Sleep Apnea Risk Level Score : 3 SABRINA ESPINOSA RN - 02/15/2022 14:13 EDT Pain Scale Intensity : 0 SABRINA ESPINOSA RN - 02/15/2022 14:13 EDT Image 4 - Images currently included in the form version of this document have not been included in the text rendition version of the form. documented in this encounter Plan of Treatment Not on file documented as of this encounter Visit Diagnoses Not on filedocumented in this encounter
--- OUTSIDE RECORDS SUMMARY | 2024-12-29 14:03 | XMS_ITS | Encounter Summary ---
Author Organization [employer] ([place], [place], [place], [place]) Address [address] [place] [address] Care Team Providers Care Printed Circuit Board Preassembler Name Role Phone Unavailable Primary Care Provider Unavailabl e Encounter Details Date Type Department Care Team (Late st Contact Info) Description 02/15/2022 Transcribed Document [facility] [place] [facility] [place] [address] ProviderEvin MD [facility] [place] [address] Social History Tobacco Use Types Packs/Day Years Used Date Smoking Tobacco: Never Assessed Comments Unknown Sex and Gender Information Value Date Recorded Sex Assigned at Not on file Legal Sex Female 5:36 PM CDT Gender Identity Not on file Sexual Orientation Not on file documented as of this encounter Miscellaneous Notes * Cerner Conversion Note - Evin ProviderMD - 02/15/2022 4:24 PM CDT DATE OF PROCEDURE: 02/15/2022 SURGEON: Armando Park MD PREOPERATIVE DIAGNOSES: 1. Postmenopausal bleeding. 2. Uterine leiomyomata. POSTOPERATIVE DIAGNOSES: 1. Postmenopausal bleeding. 2. Uterine leiomyomata. OPERATIVE PROCEDURES: 1. Hysteroscopy,. 2. Dilatation and curettage. 3. MyoSure myomectomy. IDENTIFICATION: Maggie is a 66-year-old white female, 2, para 2, has followed up with hormone replacement therapy, which has resolved, but then postmenopausal bleeding and ultrasound confirming uterine leiomyomata with suspicion for a subserosal tumor. DESCRIPTION OF PROCEDURE: The patient was taken to the operating quarter, placed supine in semi-lithotomy position. After an adequate general anesthesia was obtained, she was prepped and draped in routine fashion for a vaginal procedure. The cervix was grasped at 12 o'clock. Uterus was sounded to 8.5 cm. Spike dilation to minimally dilate the cervix. Hysteroscope was introduced. Tubal ostia were visualized. The contour of the cavity was unremarkable. There was subserosal thickening in the posterior right. MyoSure was introduced, and this area was extracted. There was noted to be very scant endometrium which appeared very thin and blanched. Extraction of this tissue was also undertaken. Uterus was resounded to 8.5 cm. Fluid deficit was 75 mL. Sponge and needle counts were correct. The patient tolerated the procedure well and left the operating room in satisfactory condition. /[id number] JoelMD ASA An/LEIA / ASA / ZE /[id number] documented in this encounter Plan of Treatment Not on file documented as of this encounter Visit Diagnoses Not on filedocumented in this encounter
--- OUTSIDE RECORDS SUMMARY | 2024-12-29 14:03 | XMS_ITS | Encounter Summary ---
Author Organization [employer] ([place], [place], [place], [place]) Address [address] [place] [address] Care Team Providers Care Tack Picker Name Role Phone Unavailable Primary Care Provider Unavailabl e Encounter Details Date Type Department Care Team (Late st Contact Info) Description 02/15/2022 Transcribed Document [facility] [place] [facility] [place] [address] ProviderEvin MD [facility] [place] [id number] Social History Tobacco Use Types Packs/Day Years Used Date Smoking Tobacco: Never Assessed Comments Unknown Sex and Gender Information Value Date Recorded Sex Assigned at Not on file Legal Sex Female 5:36 PM CDT Gender Identity Not on file Sexual Orientation Not on file documented as of this encounter Miscellaneous Notes * Cerner Conversion Note - Historical ProviderMD - 02/15/2022 4:07 PM CDT [facility] PostOp Summary Primary Physician: Armando MARTEL MD-OBG Finalized Date/Time: 02/15/22 17:00:25 Pt. Name: MAGGIE MCRAE D.O.B./Sex: 1955 Female Med Rec #: [id number] Physician: Armando MARTEL MD-OBG Financial #: [id number] Pt. Type: O Room/Bed: [facility]/1 Admit/Disch: 02/15/22 05:08:00 - Institution: [facility] Main [place] PostOp Case Times Entry 1 In PACU II 02/15/22 16:40:00 Ready for PACU II 02/15/22 16:59:00 Discharge Discharge from PACU 02/15/22 16:59:00 II Last Modified By: Casandra Amezcua RN 02/15/22 16:58:33 Finalized By: Casandra Amezcua, RN Document Signatures Signed By: Casandra Amezcua RN 02/15/22 17:00 Electronically signed by Julianna [facility] Conversion Oral Health Therapist Cerner at 10/08/2022 11:18 PM CDT documented in this encounter Plan of Treatment Not on file documented as of this encounter Visit Diagnoses Not on filedocumented in this encounter
--- OUTSIDE RECORDS SUMMARY | 2024-12-29 14:03 | XMS_ITS | Encounter Summary ---
Author Organization [employer] ([place], [place], [place], [place]) Address [address] [place] [address] Care Team Providers Care Rn X Ray Name Role Phone Unavailable Primary Care Provider Unavailabl e Encounter Details Date Type Department Care Team (Late st Contact Info) Description 02/15/2022 Transcribed Document [facility] [place] [facility] [place] [address] ProviderEvin MD [facility] [place], [place] [id number] Social History Tobacco Use Types Packs/Day Years Used Date Smoking Tobacco: Never Assessed Comments Unknown Sex and Gender Information Value Date Recorded Sex Assigned at Not on file Legal Sex Female 5:36 PM CDT Gender Identity Not on file Sexual Orientation Not on file documented as of this encounter Miscellaneous Notes * Cerner Conversion Note - Historical ProviderMD - 02/15/2022 4:07 PM CDT [facility] Main OR PACU Summary Primary Physician: Armando MARTEL MD-OBG Finalized Date/Time: 02/15/22 16:45:40 Pt. Name: MAGGIE MCRAE D.O.B./Sex: 1955 Female Med Rec #: [id number] Physician: Armando MARTEL MD-OBG Financial #: [id number] Pt. Type: O Room/Bed: [facility]/1 Admit/Disch: 02/15/22 05:08:00 - Institution: [facility] Main OR PACU Case Times Entry 1 In PACU I 02/15/22 16:20:00 Ready for PACU 02/15/22 16:40:00 Discharge Discharge from PACU 02/15/22 16:40:00 I Last Modified By: VERONICA RAINES, RN 02/15/22 16:45:24 Finalized By: VERONICA RAINES, RN Document Signatures Signed By: VERONICA RAINES RN 02/15/22 16:45 Electronically signed by Julianna [facility] Conversion Volunteer Services Assistant Cerner at 10/08/2022 11:15 PM CDT documented in this encounter Plan of Treatment Not on file documented as of this encounter Visit Diagnoses Not on filedocumented in this encounter
--- OUTSIDE RECORDS SUMMARY | 2024-12-29 14:03 | XMS_ITS | Encounter Summary ---
Author Organization [employer] ([place], [place], [place], [place]) Address [address] [place] [address] Care Team Providers Care Auto Phone Installer Name Role Phone Unavailable Primary Care Provider Unavailabl e Encounter Details Date Type Department Care Team (Late st Contact Info) Description 02/15/2022 Transcribed Document [facility] [place] [facility] [place] [address] ProviderEvin MD [facility] [place], [place] [id number] Social History Tobacco Use Types Packs/Day Years [...] 02/15/2022 4:07 PM CDT [facility] PreOp Summary Primary Physician: Armando MARTEL MD-OBG Finalized Date/Time: 02/15/22 16:30:42 Pt. Name: MAGGIE BEDOYAO.B./Sex: 1955 Female Med Rec #: [id number] Physician: Armando MARTEL MD-OBG Financial #: [id number] Pt. Type: O Room/Bed: [facility] Admit/Disch: 02/15/22 05:08:00 - Institution: [facility] [place] PreOp Case Times Entry 1 In Preop 02/15/22 13:35:00 Ready for Holding n/a Room Patient Ready for 02/15/22 14:18:00 Surgery Patient Out of Preop 02/15/22 15:45:00 Patient Out of n/a Holding Room Last Modified By: SABRINA ESPINOSA RN 02/15/22 16:30:40 [facility] PreOp Case Times Audit 02/15/22 16:30:40 Integrated Circuit Layout Designer: JUAN DIEGO Modifier: SCHROEJ <+> 1 Patient Out of Preop 02/15/22 14:20:38 Integrated Circuit Layout Designer: JUAN DIEGO Modifier: SCHROEJ <+> 1 Patient Ready for Surgery Finalized By: SABRINA ESPINOSA RN Document Signatures Signed By: SABRINA ESPINOSA RN 02/15/22 16:30 documented in this encounter Plan of Treatment Not on file documented as of this encounter Visit Diagnoses Not on filedocumented in this encounter
--- OUTSIDE RECORDS SUMMARY | 2024-12-29 14:03 | XMS_ITS | Clinical Summary ---
Author Organization [facility] Address [address] [place] [address] Care Team Providers Care Stencil Machine Operator Name Role Phone Alpesh Corbett MD Primary Care Provider Family History Medical History Relation Name Comments [...] of Treatment Not on file Care Teams Stencil Machine Operator Relationship Specialty Start Date End Date Alpesh Corbett MD [address] [place] [address] PCP - General 11/05/20
--- OUTSIDE RECORDS SUMMARY | 2024-12-29 14:04 | XMS_ITS | Encounter Summary ---
Author Organization [employer] ([place], [place], [place], [place]) Address [address] [place] [address] Care Team Providers Care Retail Stock Clerk Name Role Phone Unavailable Primary Care Provider Unavailabl e Encounter Details Date Type Department Care Team (Late st Contact Info) Description 02/13/2022 Transcribed Document [facility] [place] [facility] [place] [address] ProviderEvin MD [address] [place] [address] Social History Tobacco Use Types Packs/Day Years Used Date Smoking Tobacco: Never Assessed Comments Unknown Sex and Gender Information Value Date Recorded Sex Assigned at Not on file Legal Sex Female 5:36 PM CDT Gender Identity Not on file Sexual Orientation Not on file documented as of this encounter Miscellaneous Notes * Cerner Conversion Note - Evin ProviderMD - 02/13/2022 11:04 AM CDT PAT Adult Entered On: 02/13/2022 11:09 EDT Performed On: 02/13/2022 11:04 EDT by Soco Page RN Vital Measurements Temperature Source : Temporal artery scanning Temperature Mode : Fahrenheit Temperature, Fahrenheit : 98.0 Deg F Clinical Temperature, C : 36.7 Deg C Pulse Method : Pulse Oximetry Peripheral Pulse Rate : 65 bpm Respiratory Rate : 18 Breaths/Min Blood Pressure Location : Arm, left upper Blood Pressure Source : Non-Invasive BP Device Blood Pressure Position : Sitting Systolic Blood Pressure : 134 mmHg Diastolic Blood Pressure : 64 mmHg Oxygen Saturation : 98 % Oxygen Therapy Mode : Room air Soco Page RN - 02/13/2022 11:04 EDT Height and Weight, Clinical Dosing Height Source : Measured Height Entry Format : [place] Height, Feet : 5 ft(Converted to: 152 cm, 60 Inch) Height, Inches : 3 Inch(Converted to: 0 ft 3 Inch, 7.62 cm) Clinical Height : 160.02 cm Weight Source : Standing scale Weight Entry Format : [place] Clinical Dosing Weight : 84.73 kg Weight, Pounds : 186.4 lb Body Surface Area (BSA) : 1.88 m2 Body Mass Index : 33.1 kg/m2 (HI) [place] Body Weight : 52 kg Soco Page RN - 02/13/2022 11:04 EDT Health Histories Smoking Status : Never (less than 100 in lifetime; none in last 30 days) Smokeless Tobacco Status : Never Soco Page RN - 02/13/2022 11:04 EDT Social History (As Of: 02/13/2022 11:09:24 EDT) Tobacco: Never (less than 100 in lifetime) Smoking Status. Never Smokeless Tobacco Status. (Last Updated: 02/13/2022 11:05:22 EDT by Soco Page, KAREN) Alcohol: Alcohol Use History Yes. Alcohol Use Frequency Socially. (Last Updated: 02/13/2022 11:05:32 EDT by Soco Page, KAREN) Substance Abuse: Drug Use Hx: No. Use in Last 12 Months: No. (Last Updated: 02/13/2022 11:05:36 EDT by Soco Page, KAERN) Infectious Disease History Does patient have symptoms of COVID-19? : No Tested for COVID19 in the past 14 days : No, Patient stated Does the Patient state known exposure to a COVID-19 positive case in the last 14 days? : No Patient Vaccinated for COVID-19 : Fully vaccinated Soco Page RN - 02/13/2022 11:04 EDT Infectious Disease Risk Screening Grid Cough < 2 wks of unknown origin : NO Cough > 2 weeks : NO Blood in Sputum : NO Fever or self-reported Fever : NO Rash of unknown origin : NO Headache : NO Stiff neck : NO Night Sweats : NO Unexplained Weight Loss : NO Diarrhea (3 episode per day) : NO Soco Page RN - 02/13/2022 11:04 EDT Physical contact outside [place] in the last 30 days : No Hospitalized in Foreign Country : No Infectious Disease History : Chicken pox/Shingles INF Disease TB Screening Calc : 0 INF Disease Recent Travel Calc : 0 Soco Page RN - 02/13/2022 11:04 EDT COVID19 PreProcedure Screening Is this an Emergent or Add on Procedure? : No Date PreProcedure COVID-19 test known? : No Has patient been isolated since the test : N/A - PreProcedure, in-person visit Exposed to COVID19 symptoms since test? : N/A - PreProcedure, in-person visit Soco Page RN - 02/13/2022 11:04 EDT Anesthesia/Transfusion History Family History of Anesthesia Reaction : No prior transfusion(s) Transfusion History : Prior anesthesia without reaction Family History of Anesthesia Reaction : None Soco Page RN - 02/13/2022 11:04 EDT Advance Directive Patient has Advance Directive *Q : No, patient refuses Advance Directive information Soco Page RN - 02/13/2022 11:04 EDT [place] Suicide Severity Rating Scale (C-SSRS) CSSRS Past Month Wish to be : No CSSRS Past Month Suicidal Thoughts : No CSSRS Lifetime Suicide Behavior : No Suicide Severity Rating Score : 0 Suicide Severity Rating : No Additional Care Required at this time Soco Page RN - 02/13/2022 11:04 EDT Psychosocial History Currently in Unsafe Situation : No Soco Page RN - 02/13/2022 11:04 EDT Teaching/Learning Assessment Barriers To Learning : None evident Individuals Taught : Patient Readiness to Learn : Cooperative Baseline Knowledge of Topic : Comprehensive Readiness to Learn : Explanation, Printed materials Learning Style Preferences Patient : Printed materials, Verbal explanation Soco Page RN - 02/13/2022 11:04 EDT Education Topics, Periop Preadmission Perioperative Education Grid Arrival Time/Place : Verbalizes understanding Infection Control : Verbalizes understanding NPO Status/Directions : Verbalizes understanding Preprocedure Preparations : Verbalizes understanding Preprocedure Tests/Labs : Verbalizes understanding Remove Body Piercings : Verbalizes understanding Responsible Adult : Verbalizes understanding Take/Hold Medications Pre-Procedure : Verbalizes understanding Soco Page RN - 02/13/2022 11:04 EDT General Info Want Family/Rep/Phys Notified of Admit : No Emergency Contact #1 : Osmani Sheikh Emergency Contact #1 Emergency Contact #1 Relationship : Son Emergency Contact #2 : . Emergency Contact #2 Phone Number : . Emergency Contact #2 Relationship : . Primary Language : Lebanese Preferred Communication Mode : Verbal Communication Barrier : None Sanipractic Physician Needed : No Soco Page RN - 02/13/2022 11:04 EDT Sumit Scale Sumit Sensory Perception : No impairment Sumit Moisture : Rarely moist Sumit Activity : Walks frequently Sumit Mobility : No limitation Sumit Nutrition : Excellent Sumit Friction and Shear : No apparent problem Sumit Score : 23 Soco Page RN - 02/13/2022 11:04 EDT Sleep Apnea Risk Assmt Hx of [...] Sleep Apnea Risk Level Score : 3 Soco Page RN - 02/13/2022 11:04 EDT documented in this encounter Plan of Treatment Not on file documented as of this encounter Visit Diagnoses Not on filedocumented in this encounter
--- OUTSIDE RECORDS SUMMARY | 2024-12-29 14:04 | XMS_ITS | Data Portability ---
Author Organization [facility] Office Address [address] [place] [address] Care Team Providers Care Realtime Reporter Name Role Phone FINA SMALLS Primary Care Provider Assessment No assessment recorded. Plan of Treatment Reminders Order Date Submit Date Provider Last Modified By Organization Details Last Modified Time Details Appointments None recorded. Lab None recorded. Referral None recorded. Procedures epidural steroid injection, lumbar (PROC) - please schedule LESI L5-S1 right 2022 023 aimee Martinez [facility], [address] [place] [address], [facility]. D, [place]. [address] [place] [address], [phone], 3 10:31:40 epidural steroid injection, lumbar (PROC) - L5-S1 W/ Dr. Ja Rowe [facility] is [facility] TIN: [phone] 2021 022 aimee [facility], [address] [place] [address], [facility]. D, [place]. [address] [place] [address], [phone], 2 16:01:36 Surgeries None recorded. Imaging None recorded. Medication Orders None recorded. Patient TargetsNo targets recorded. Patient Instructions Encounter Date Encounter Id Patient Instructions Last Modified By Organization Details Last Modified Time 01/09/2022 [id number] discussed her irregular bleeding possibly SE from steroid but she has to continue her work up with SEARCH MANAGER and she agrees [email or web address] Not available 01/09/2022 10:00:11 07/03/2022 [id number] continue healthy lifestyles encouraged HEP/stretching please note patient does not receive any scheduled medications, only injective therapy at this time Patient seen today incident to a physician s previously established diagnosis and plan of care. Follow-up care provided today under the plan of care of: Kimberly Peres MD and supervision of: Kimberly Peres MD. 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) Spondylos is without myelopath y or radiculop athy, lumbar region Not Available [facility] 2 23:02:53 Degenerat ion of lumbosacr al intervert ebral disc 57311298 Active 2020 (M51.37)O ther intervert ebral disc degenerat ion, lumbosacr al region Not Available [facility] 2 23:02:53 Lumbosacr al radiculop athy 6462476 Active 2020 (M54.17)R adiculopa thy, lumbosacr al region Not Available [facility] 2 23:02:53 Pre-surge ry testing Active 2020 (Z01.812) Encounter for preproced ural laborator y examinati on Not Available [facility] 2 23:02:53 Osteoarth ritis of right knee joint 26322641358 9100 Active 2021 Stephanie torres, [facility] 2 09:58:30 Problem Notes None recorded. Medical Equipment None Reported. Allergies Allergen ID Allergen Name Allergen Category Reaction Reaction Severity Criticality Documentation Date Start Date Code Code System Note Provider Name and Address Organization Details Recorded Time 23658 ampicilli n medicatio n Not available Not available Not available 10/25/20212020 733 RxNorm React ion: LIPS SWELL ING(M ild) Not Available [facility] 22:02:08 27502 naproxen medicatio n Not available Not available Not available 10/25/20212020 7258 RxNorm React ion: hands ,feet itch on the botto m(Mil d) Not Available [facility] 22:02:08 Medications Name Sig Start Date Stop [...] Body temperature Heart rate Respiratory rate Systolic And Diastolic Provider Name and Address Organization Details Last Updated DateTime 3 162.56 cm 31.6 kg/m2 32992 g 97.7 [degF] 78 /min 18 /min 118/68 mm[Hg] [facility] 3 10:58:48 Date Recorded Body height Body mass index (BMI) Body weight Body temperature Heart rate Oxygen saturation Oxygen saturation in Arterial blood by Pulse oximetry Systolic And Diastolic Provider Name and Address Organization Details Last Updated DateTime 2 162.56 cm 31.6 kg/m2 40740 g 97.6 [degF] 63 /min 93 % 93 % 155/94 mm[Hg] [facility] 2 09:30:29 [...] SNOMED-CT Code Diagnosis ICD10 Code Diagnosis Note [id number] Stephanie Ramos, [employer] [address] [employer] [address] [place] [address] 01/09/2022 09:04:51 01/10/2022 15:21:29 Lumbosacral radiculopathy 6713482 M54.17 has done well after the injection with her pain, says she has completed the PT and has been walking, will schedule repeat in May and then see her back after that Osteoarthr itis of right knee joint [id number] 74658 M17.11 provided info on PNS with [employer], advised [employer] will not cover Genicular RFA and other tx has not helped her much, she may need ortho will discuss later time [id number] Karon Elizalde DNP [employer] [address] [place] [address] 07/03/2022 10:39:15 07/06/2022 16:12:07 Lumbosacral radiculopathy 4763344 M54.17 Global Risk Assessment Score:Mode rate Risk. [...] fill Osteoarthr itis of right knee joint [id number] 99044 M17.11 Health Concerns Section Related Observation LastModified by Organization Detai ls LastModified Time None Recorded Concern Status LastModified by Organization Details LastModified Time None Recorded Advance Directives Directive None Recorded Payers Insurance Date Sequence Insurance Name Policy Number Policy Albarado Covered Member ID Albarado Member ID Guarantor Name 07/07/2022 1 [employer] (MEDICARE REPLACEMENT/ ADVANTAGE - HMO) [id number] Maggie Bedoya [id number] Maggie Bedoya 08/26/2022 1 [employer] - GOLD PLUS (MEDICARE REPLACEMENT/ ADVANTAGE - HMO) Maggie Bedoya [id number] Maggie Bedoya Notes Date Note Type Note Provider Name and Address Organization Details Recorded Time 01/09/2022 text/html patient is here for a f/u from the LESI at L5-S1 she had with MD and she says she audra well, she says she had no complications, but reports she did start spotting and saw SEARCH MANAGER and is having some work up related [...] knee is feeling good. Kimberly Peres MD [address] [facility], [place], [address], [facility] 01/10/2022 [...] and performing stretching exercises. LESI: Right L5-S1 [id number] on 04/26/22.Day of procedure: 100% relief.2 weeks later 60% relief.Ongoing relief: intermittent pain with 60% relief. Patient is here for med refills today, reports compliance, states use of medication gives some relief and allows more physical function. Patient reports tolerating the medication well and denies any adverse effects including toxic effects, respiratory sedation, driving problems, or GI problems. Karon Elizalde, DILLON [employer] [address] [facility], [place], [address], [facility] 07/10/2022 18:02:41 OBGyn Episode No OBEpisode recorded.
--- OUTSIDE RECORDS SUMMARY | 2024-12-29 14:04 | XMS_ITS | Encounter Summary ---
Author Organization [employer] ([place], [place], [place], [place]) Address [address] [place] [address] Care Team Providers Care Pesticide Use Medical Coordinator Name Role Phone Unavailable Primary Care Provider Unavailabl e Encounter Details Date Type Department Care Team (Late st Contact Info) Description 02/13/2022 Transcribed Document [facility] [place] [facility] [place] [address] ProviderEvin MD [address] [place] [address] Social History Tobacco Use Types Packs/Day Years Used Date Smoking Tobacco: Never Assessed Comments Unknown Sex and Gender Information Value Date Recorded Sex Assigned at Not on file Legal Sex Female 5:36 PM CDT Gender Identity Not on file Sexual Orientation Not on file documented as of this encounter Miscellaneous Notes * Cerner Conversion Note - Historical ProviderMD - 02/13/2022 11:25 AM CDT Event Note Entered On: 02/13/2022 11:27 EDT Performed On: 02/13/2022 11:25 EDT by Soco Page RN Event Note Event Date/Time : 02/13/2022 11:25 EDT Event Location : Other: PAT Event Details : Other: Medication Alert Description of Event : Left VM for Kylee at Dr. Park's office to let her know that this patient is on Celebrex and that Celebrex was not listed on the patient's list of medications to stop 10 days prior to surgery so the patient has continued to take it and her surgery is 2 days away on 02/15/22. I did instruct patient to stop taking it until after surgery per anesthesia recommendations. Her last dose of Celebrex was this morning on 02/13/22. Soco Page RN - 02/13/2022 11:25 EDT Electronically signed by Julianna, [facility] Conversion Stained Glass Glazier Helper Cerner at 10/08/2022 11:14 PM CDT documented in this encounter Plan of Treatment Not on file documented as of this encounter Visit Diagnoses Not on filedocumented in this encounter
--- NOTE | 2024-12-29 14:26 | EXP.PAIN.SOA ---
[facility] Disclaimer: The information contained in this section may have been updated after the patient was seen, as this information can be updated by other users. Medical History HLD (hyperlipidemia) HTN (hypertension) Vitamin E deficiency Surgical History History of arthroscopic knee surgery Family History Other Unknown family medical history Social History Smoking Status: Never smoker alcohol intake: current alcohol intake frequency: holidays/special occasions only counseling provided: none substance use type: denies use current occupational status: other Travel in the last 8 weeks?: None housing: house current occupational exposures/hazards: No caffeine: Yes PM Subjective & Objective Subjective Subjective:: Patient is a pleasant 69-year-old female who presents today for worsening low back and knee pain with radicular symptoms that do go onto the top of her foot. Patient denies any new falls or injuries. She does state the pain does interfere with her ability perform activities of daily living such as cooking and cleaning. At our last visit we had even discussed the possibility of proceeding forward with a genicular RFA there in [place] however she states the caban she could not afford. She states it was good to be around $1500 [id number] each knee. Patient does state that she is continuing to use the diclofenac 75 mg twice a day and feels like it is helping. She denies any side effects. Patient would like to see about additional injections with her ongoing pain. Patient has continued conservative treatment. Her Vitor has been reviewed and is appropriate. Review of Systems: General: No recent weight changes, no fever, no sleep disturbances Respiratory: No cough, no shortness of air, no recurring pulmonary infections Cardiovascular/peripheral vascular: No chest pain, no palpitations, no edema, no shortness of breath Gastrointestinal: No new onset incontinence, normal bowel movements reported Genitourinary: No new onset incontinence Musculoskeletal: Low back pain, leg pain, knee pain Psychiatric: [Normal mood/affect] Neurological: [Denies weakness in extremities], [denies balance issues] Pain at rest (0-10 scale): 7 Objective Objective:: Physical Exam: General: Alert and oriented x3, no acute distress, pleasant and cooperative Lungs: Respirations even and unlabored, symmetrical chest expansion Eyes: PERRL Musculoskeletal: Flexion and extension of lumbar [spine] somewhat guarded secondary to pain, [antalgic gait noted] positive leg raise Neurological: Speech clear, no gross sensory deficit Has patient had previous pain injection?: No Conservative treatment options previously tried: Home exercise plan Length of treatment: Longer than 12 weeks Meds Home Medications and Allergies Home Medications ?Medication ?Instructions ?Recorded ?Confirmed ?Type escitalopram oxalate 10 mg tablet 10 mg PO DAILY 12/07/22 12/04/24 History hydrochlorothiazide 12.5 mg tablet 12.5 mg PO DAILY 12/07/22 12/04/24 History vitamin E (dl, acetate) 180 mg 180 mg PO DAILY 12/07/22 12/04/24 History (400 unit) capsule ibuprofen 800 mg tablet 800 mg PO TID OA pain #90 tabs 06/12/24 12/04/24 Rx calcium 315 mg (as 1 tab PO DAILY 09/23/24 12/04/24 History citrate)-vitamin D3 5 mcg (200 unit) tablet (Calcium Citrate + D) digestive enzymes 1 cap PO DAILY 09/23/24 12/04/24 History docusate sodium 100 mg capsule 100 mg PO DAILY PRN Laxative Effect 09/23/24 12/04/24 History (Dulcolax Stool Softener (docusate)) lansoprazole 30 mg capsule,delayed 30 mg PO DAILY 09/23/24 12/04/24 History release linaclotide 290 mcg capsule 290 mcg PO DAILY #30 caps 09/23/24 12/04/24 Rx (Linzess) psyllium husk 0.4 gram capsule 0.8 g PO DAILY 09/23/24 12/04/24 History (Metamucil) rosuvastatin 20 mg tablet 20 mg PO DAILY 09/23/24 12/04/24 History trazodone 50 mg tablet 50 mg PO HS 09/23/24 12/04/24 History valsartan 160 mg tablet 160 mg PO DAILY 09/23/24 12/04/24 History diclofenac sodium 75 mg 75 mg PO BID #28 tabs 12/04/24 Rx tablet,delayed release diclofenac sodium 75 mg 75 mg PO BID #60 tabs 12/08/24 Rx tablet,delayed release New Prescriptions to Start Prescriptions: Allergies Allergy/AdvReac Type Severity Reaction Status Date / Time ampicillin Allergy Verified 09/23/24 11:07 naproxen (From Naprosyn) Allergy Verified 09/23/24 11:07 Assessment and Plan *Assessment and plan (1) Low back pain: Status: Acute Category: Medical Code(s): M54.50 - Low back pain, unspecified (2) Lumbar radiculopathy: Status: Acute Category: Medical Code(s): M54.16 - Radiculopathy, lumbar region (3) Degenerative disc disease: Status: Acute Category: Medical (4) Osteoarthritis of right knee: Status: Acute Qualifiers: Osteoarthritis type: primary Qualified Code(s): M17.11 - Unilateral primary osteoarthritis, right knee Category: Medical Code(s): M17.11 - Unilateral primary osteoarthritis, right knee (5) Osteoarthritis of left knee: Status: Acute Qualifiers: Osteoarthritis type: primary Qualified Code(s): M17.12 - Unilateral primary osteoarthritis, left knee Category: Medical Code(s): M17.12 - Unilateral primary osteoarthritis, left knee Plan Patient is experiencing worsening pain in her low back with numbness and tingling into her lower extremities. Patient did have limited range of motion of her lumbar spine with a positive leg raise. I did discuss with patient that I do believe they would benefit from a lumbar epidural steroid injection. Risk and benefits were discussed with patient and the patient would like to proceed forward with this plan of care. Patient is not on any blood thinners. Patient has tried and failed conservative therapy including oral medications, heat and ice, topicals and continued at home stretching exercise for longer than 12 weeks between injections. Patient has had chronic back pain for longer than 6 months. Patient has not had any epidurals from our office to compare to. We will schedule the patient for an LESI L4-L5 under fluoroscopy. I will also refill the patient's diclofenac. Patient has been instructed to contact the clinic with any concerns before the next appointment. Dr. Bucio has reviewed this note and agrees with this plan of care. This note was dictated using voice recognition software and make contain errors or omissions. All injections are used with Lidocaine, Bupivacaine and dexamethasone. Occasionally urine drug screen is needed to verify patient's compliance with our office pain contract. This is ordered based off specific treatments related to chronic pain with the potential to abuse certain medications.
[2024-12-29 15:01] VITALS: BP 122/82; PULSE 72; O2SAT 98; BMI 32.9
== END 2024-12-29 23:59 | disposition home or self-care (01) ==
PROVIDERS: PCP Nurse Practitioner Family; Visit Provider Nurse Practitioner Family
DX: M51.16 Intervertebral disc disorders with radiculopathy, lumbar region (principal); M17.0 Bilateral primary osteoarthritis of knee; Z79.1 Long term (current) use of non-steroidal anti-inflammatories (NSAID)
CPT/HCPCS: 99212; G0463

== ENCOUNTER 2025-01-13 13:19 | Day surgery (SDC) | payer MEDICARE, SELFPAY ==
[2025-01-13 13:33] VITALS: BP 152/83; PULSE 81; RESP 18; O2SAT 95; BMI 32.9
--- NOTE | 2025-01-13 13:38 | EXP.PAIN.PRO ---
Procedure Date: 01/13/25 Time: 13:30 Anesthesiologist:: Roel Villavicencio CRNA Complications:: None Pre-procedure Diagnosis:: Degenerative disc lumbar spine multilevels. Lumbar radiculopathy. Post-procedure Diagnosis:: Same Indications for Procedure:: Patient is a very pleasant 69-year-old female who comes our clinic today for lumbar epidural steroid injection at the L4-5 level. Patient describes low lumbar back pain off the midline bilaterally. Bilateral hip and leg radicular symptoms. She rates her pain 7/10. Procedure Details:: Procedure: Lumbar epidural steroid injection under fluoroscopy Informed consent was obtained and the risks and benefits of the procedure were explained to the patient. The patient was taken to the procedure room and noninvasive monitors placed, including noninvasive blood pressure cuff and pulse oximeter. The back was viewed using C-arm Fluoroscopy and prepped using Chloraprep as a cleansing solution and the L4-L5 interspace was palpated. Skin and subcutaneous tissues were anesthetized using lidocaine 1.5% and a 25-gauge needle. After this, an 18-gauge Touhy epidural needle was placed into the L4-L5 interspace and advanced using fluoroscopic guidance and loss of resistance to air until the epidural space was encountered. After confirmation of needle placement in the epidural space, with dye, a solution containing normal saline, 3 mL and dexamethasone 10 mg were incrementally injected into the lumbar epidural space. The patient tolerated the procedure well with no complications. The patient was observed in the Pain Clinic and then discharged home neurologically intact. Plan and Disposition:: Patient was discharged without incident.
[2025-01-13] MEDS: DEXAMETHASONE 10MG/ML 1ML VIAL 10 MG (13:39)
[2025-01-13 13:40] VITALS: BP 146/70; PULSE 78; RESP 18; O2SAT 97
[2025-01-13 13:42] VITALS: BP 146/70; PULSE 78; RESP 18; O2SAT 97
[2025-01-13 13:46] VITALS: BP 140/72; PULSE 75; RESP 18; O2SAT 96
== END 2025-01-13 13:46 | disposition home or self-care (01) ==
PROVIDERS: PCP Nurse Practitioner Family; Visit Provider Nurse Anesthetist, Certified Registered
DX: M51.360 Other intervertebral disc degeneration, lumbar region with discogenic back pain only (principal); M54.16 Radiculopathy, lumbar region; M17.0 Bilateral primary osteoarthritis of knee; E78.5 Hyperlipidemia, unspecified; I10 Essential (primary) hypertension; E56.0 Deficiency of vitamin E; Z79.899 Other long term (current) drug therapy; Z88.0 Allergy status to penicillin; Z88.6 Allergy status to analgesic agent
CPT/HCPCS: 62323; J1100

== ENCOUNTER 2025-02-02 13:22 | Outpatient (POV) | payer MEDICARE, SELFPAY ==
--- OUTSIDE RECORDS SUMMARY | 2025-02-02 13:26 | XMS_ITS | Clinical Summary ---
Author Organization [employer] ([place], [place], [place], [place]) Address [address] [place] [address] Care Team Providers Care Die Finisher Forging Name Role Phone Unavailable Primary Care Provider [...]
--- OUTSIDE RECORDS SUMMARY | 2025-02-02 13:26 | XMS_ITS | Encounter Summary ---
Author Organization [employer] ([place], [place], [place], [place]) Address [address] [place] [address] Care Team Providers Care Senior Manager Creative Services Name Role Phone Unavailable Primary Care Provider Unavailabl e Encounter Details Date Type Department Care Team (Late st Contact Info) Description 02/15/2022 Transcribed Document [facility] [place] Family Medicine [facility] [place] [address] ProviderEvin MD [facility] [place] [address] Social History Tobacco Use Types [...] Evin ProviderMD - 02/15/2022 4:07 PM CDT [facility] [place] [place] IntraOp Summary Primary Physician: Armando MARTEL MD-OBG Finalized Date/Time: 02/16/22 08:16:15 Pt. Name: AMGGIE BEDOYA /Sex: 1955 Female Med Rec #: [id number] Physician: Armando MARTEL MD-OBG Financial #: [id number] Pt. Type: O Room/Bed: [facility]/ Admit/Disch: 02/15/22 05:08:00 - 02/15/22 16:59:00 Institution: [facility] [place]Op Case Attendance Entry 1 Entry 2 Entry 3 Case Attendee Armando MARTEL, YESSENIA PERALTA, RN Nikhil Taylor ST MD-OBG Role Performed Surgeon/Proceduralist, Diploma Dental Assistant, First Scrub, First First Time In 02/15/22 [...] 5 Entry 6 Case Attendee KEITH SUAZO, YARN POLISHING MACHINE OPERATOR Anisa Ashley Brock, Deanna S, METAL FINISH INSPECTOR-NURSE INDUSTRIAL CAFETERIA MANAGER Electromechanical Equipment Tester Role Performed YARN POLISHING MACHINE OPERATOR/Nurse Librarian Special Library Student Scrub, First Time In 02/15/22 15:48:00 [...] [facility] IntraOp Case Attendance Audit 02/15/22 16:24:07 Laboratory Tech: KOURTNEY Modifier: KOURTNEY 3 <*> Time Out 02/15/22 16:21:00 3 <*> Procedure Uterine D and C Hysteroscopy, Myomectomy <+> 6 Role Performed <+> 6 Procedure 02/15/22 16:23:31 Laboratory Tech: KOURTNEY Modifier: KOURTNEY <+> 1 Time Out [...] Myomectomy <+> 6 Time Out 02/15/22 16:10:30 Laboratory Tech: KOURTNEY Modifier: LEINSU 2 <*> Procedure Uterine D and C Hysteroscopy, Myomectomy 3 <*> Procedure Uterine D and C Hysteroscopy, Myomectomy 4 <*> Procedure Uterine D and C Hysteroscopy, Myomectomy 5 <*> Procedure Uterine D and C Hysteroscopy, Myomectomy <+> 6 Time In 02/15/22 16:09:17 Laboratory Tech: KOURTNEY Modifier: STEFANIEU <+> 1 Time In [...] Myomectomy <+> 6 Case Attendee 02/15/22 15:40:28 Laboratory Tech: KOURTNEY Modifier: KOURTNEY 1 <*> Case Attendee Armando MARTEL MD-OBG 1 <*> Role Performed Surgeon/Proceduralist, First 2 <*> Case Attendee YESSENIA PERALTA, RN 2 <*> Role Performed Diploma Dental Assistant, First 2 <*> Procedure Uterine D and C Hysteroscopy, Myomectomy 3 <*> Case Attendee Nikhil Taylor, 3 <*> Role Performed Scrub, First 3 <*> Procedure Uterine D and C Hysteroscopy, Myomectomy Entry 4 was deleted. Higher numbered entries shifted one position to fill the gap. <-> 4 Case Attendee JESUS MONTGOMERY, NA <-> 4 Role Performed YARN POLISHING MACHINE OPERATOR/Nurse Librarian Special Library <-> 4 Procedure Uterine D and C Hysteroscopy, Myomectomy 02/15/22 15:39:41 Laboratory Tech: LEINSU Modifier: LEINSU <+> 5 Case Attendee <+> 5 Role Performed <+> 5 Procedure 02/15/22 15:38:36 Laboratory Tech: LEINSU Modifier: LEINSU <+> 4 Case Attendee [...] [facility] IntraOp Case Times Audit 02/15/22 16:23:23 Laboratory Tech: LEINSU Modifier: LEINSU <+> 1 Out Room Time <+> 1 Stop Time 02/15/22 16:20:31 Laboratory Tech: LEINSU Modifier: LEINSU <+> 1 Stop Time 02/15/22 16:07:43 Laboratory Tech: LEINSU Modifier: LEINSU <+> 1 Start Time [...] By Count Performed By Kavitha Squires (Scrub) Electromechanical Equipment Tester Count Performed By YESSENIA PERALTA RN (RN) [...] by KEITH SUAZO CRNA Last Modified By: EYSSENIA PERALTA RN 02/15/22 16:09:25 [facility] IntraOp Fire [...] RN 02/15/22 16:11:32 [facility] IntraOp General Case Transportation Manager 1 Case Information OR OR 04 [facility] Case Level 1 Room Verified Yes Wound Class 2 - Clean-Contaminated Specialty Gynecology Anesthesia Type General ASA Class 3 Diagnosis Preop Diagnosis uterine fibroids Postop Same As Preop No Postop Diagnosis see surgeons postop note Wound Class Definitions Last Modified By: YESSENIA PERALTA RN 02/15/22 16:09:59 [facility] IntraOp General Case Data Audit 02/15/22 16:09:59 Laboratory Tech: KOURTNEY Modifier: KOURTNEY 1 <+> ASA Class [...] [facility] IntraOp Patient Positioning Audit 02/15/22 15:39:53 Laboratory Tech: STEFANIESuzy Modifier: RAMONSHILPI 1 <*> Procedure Uterine [...] Intra Op Sign Out Audit 02/15/22 16:24:16 Laboratory Tech: KOURTNEY Modifier: KOURTNEY <+> 1 RN Sign [...] [facility] IntraOp Surgical Procedures Audit 02/15/22 16:24:08 Laboratory Tech: KOURTNEY Modifier: STEFANIEU <+> 1 Stop <+> 2 Stop 02/15/22 16:10:18 Laboratory Tech: KOURTNEY Modifier: STEFANIEU 1 <*> Procedure Uterine [...] SJDarien IntraOp Time Out Audit 02/15/22 16:10:49 Laboratory Tech: KOURTNEY Modifier: RAMONNSU 1 <+> Beta Jose Administered 1 <+> Venous Thromboembolism Prophylaxis Required 1 <+> Antibiotic Prophylaxis Administered Or In Progress Within the Last 60 Minutes 1 <+> Surgeon 1 <+> Anesthesia Provider 1 <+> Nursing Assures 1 <+> Essential Imaging Labeled and Displayed 1 <*> Procedure to be Performed Uterine D and C Hysteroscopy, Myomectomy 02/15/22 16:07:06 Laboratory Tech: KOURTNEY Modifier: RAMONNSU 1 <+> Time Out [...] ADAM Correct Billing Electronically signed by Julianna [facility] Conversion Phone Screener Cerner at 10/08/2022 11:21 PM CDT documented in this encounter Plan of Treatment Not on file documented as of this encounter Visit Diagnoses Not on filedocumented in this encounter
--- OUTSIDE RECORDS SUMMARY | 2025-02-02 13:26 | XMS_ITS | Patient Health Record ---
[facility] Organization [facility] Address [address] [facility] [address] [place] [id number] Care Team Providers Care Field Engineer Name Role Phone Armando Corbett Primary Care Provider [phone] Grace Kelsey [phone] Allergies Allergen (clinical drug ingredient) Drug/Non Drug [...] review and pick correct strength-formula tion from Enubila options. If intended option is not shown, [...] review and pick correct strength-formula tion from Enubila options. If intended option is not shown, discontinue and re-order from Quick Search* Not-Taking Immunizations Vaccine Route Administration Date Status Comme nts COVID 19 Moderna Unknown 01/25/2022 Administered Fluzone PF Quad (6-35 months) Unknown 04/05/2022 Administered Fluzone Quad (6months&older) Unknown 04/24/2019 Administered Prevnar (PCV20) Unknown 01/18/2022 Administered xFlu shot-36 months and older IM Intramuscular 05/13/2005 Administered Hepatitis B (20 and more) Unknown 08/03/2009 Administer ed Hepatitis B (20 and more) Unknown 03/18/2009 Administer ed Hepatitis B (20 and more) Unknown 02/01/2009 Administer ed Hepatitis A (adult) Unknown 04/24/2019 Administered Hepatitis A (adult) Unknown 06/03/2018 Administered Fluzone PF Quad (6-35 months) Unknown 03/31/2023 Administered Fluzone PF Quad (6-35 months) Unknown 04/18/2021 Administered Fluzone PF Quad (6-35 months) Unknown 04/07/2020 Administered COVID 19 Moderna Unknown 05/05/2021 Administered COVID 19 Moderna Unknown 09/22/2020 Administered COVID 19 Moderna Unknown 08/25/2020 Administered Tetanus Tdap-Adacel (over 7yrs) IM Intramuscular 09/25/2017 Administered Fluzone PF Quad (6-35 months) Unknown 04/23/2018 Administered Problems Problem Type SNOMED Code ICD Code Onset Dates Problem Status W/U Status Risk Notes Problem Gastroesophageal reflux disease (429245582) GERD (gastroesophageal reflux disease) (K21.9) Active confirmed Problem Vitamin D deficiency (76272478) Vitamin D deficiency (E55.9) Active confirmed Problem Constipation (29133236) Constipation (K59.00) Active confirmed Problem Hypertension (51703500) Hypertension (I10) Active confirmed Problem Mixed anxiety and depressive disorder (043824699) Depression with anxiety (F41.8) Active confirmed Problem Hyperlipidemia (11054117) Hyperlipidemia, unspecified (E78.5) Active confirmed Problem Localized, primary osteoarthritis (754121400) Primary arthrosis of multiple joints (M19.91) Active confirmed Problem Gastroesophageal reflux disease with esophagitis (123229639) Gastroesophageal reflux disease with esophagitis (K21.0) Active confirmed Problem Lumbosacral spondylosis without myelopathy (03642622) Spondylosis of lumbar region without myelopathy or radiculopathy (M47.816) Active confirmed Problem Body mass index 30.00 to 34.99 (944596113472242) BMI 34.0-34.9,adult (Z68.34) Active confirmed Problem Depressive disorder (disorder) (65992763) Depression, unspecified depression type (F32.9) Active confirmed Problem Menopause (815513329) Postmenopausal syndrome (N95.1) Active confirmed Problem Thyromegaly (4438941) Thyromegaly (E01.0) Active confirmed Vital Signs Heart Rate 82 /min 07/01/2024 Blood pressure diastolic 76 mm Hg 07/01/2024 Height 63 in 07/01/2024 Blood pressure systolic 128 mm Hg 07/01/2024 Weight 190.6 lbs 07/01/2024 BMI 33.76 kg/m2 07/01/2024 Encounters Encounter Location Date Provider Diagnosis [facility] [address] [facility] [address] [place] [id number] 07/01/2024 Grace Kelsey Acute pharyngitis J02.9 [facility] [address] [facility] [address] [place] [id number] 12/31/2024 Armando Corbett Assessments Encounter Date Diagnosis (ICD Code) Assessment Notes Treatment Notes Treatment Clinical Notes Section Notes 07/01/2024 Acute pharyngitis (ICD-10 - J02.9) Plan Of Treatment Pending Test Test Name Order Date CXR 07/24/2023 Insurance Providers Payer Name Payer Address Payer Phone Subscriber Number Group Number Insured Name Patient Relationship to Insured Coverage Start Date Coverage End Date [employer] (MEDICAR E) [address] [address] [place] [address] [id number] SARMAD MCRAE Self - patient is the insured Medications Administered Medication Instructions Date of Administration Dosage Notes B-12 09/25/2017 1 mL Depo- Medrol 40 mg/ml 06/26/2023 1.5 mL Depo- Medrol 40 mg/ml 10/10/2014 1.5 mL Depo- Medrol 40 mg/ml 06/13/2014 1 mL inj ected into left heel by Dr. Kelsey Dexamethasone 01/19/2023 1 mL Dexamethasone 02/11/2021 1 mL Medical (General) History Medical History History ICD Code Hypertension Hyperlipidemia Depression Osteoarthritis GERD Anxiety Surgical History Surgery Date(Month/Year) Tegress Implant x2 Tegress Injection 05/2005 Neck, Back and Hip Injections C-scope/ Baker/ Normal 2003 BTL 1973 Bilateral Carpal Tunnel release 12/2011 LT Knee Arthoscopy 03/2014 Uterus Tumor Removal 03/2014 LT Cataract and Lens Reshaping 6 rooster comb injections in left knee-Dr De C-scope/ Allran/ small tics/ 5 year f/u recommended 2011 Hospitalization History Reason Date(Month/Year) [facility] ER, lost memory 10/27/07
--- OUTSIDE RECORDS SUMMARY | 2025-02-02 13:26 | XMS_ITS | Encounter Summary ---
Author Organization [employer] ([place], [place], [place], [place]) Address [address] [place] [address] Care Team Providers Care Lap Machine Tender Name Role Phone Unavailable Primary Care Provider Unavailabl e Encounter Details Date Type Department Care Team (Late st Contact Info) Description 02/15/2022 Transcribed Document [facility] [place] [address] [place] [address] ProviderEvin MD [address] [place] [address] Social History Tobacco Use Types [...] Evin ProviderMD - 02/15/2022 4:44 [place] [address] MAGGIE MCRAE :1955 Visit Time:02/15/2022 What to do next Follow-Up Appointments Follow Up with Armando MARTEL MD-OBG When Comments Keep appt as directed Where: [address] [place] [phone] Medications What How Much When Instructions Next [...] taking prescription pain medicines. Medicines ??? Take nzbg-kpr-ztttjov and prescription medicines only as told by [...] urine clear or pale yellow. ? Take rjsu-kyl-hdmolgz or prescription medicines. ? Eat foods that [...] provider. Document Revised: 05/24/2018 Document Reviewed: 07/10/2017 [employer] Patient Education ?? 2020 [employer] General Anesthesia, Adult, Care After This [...] activities are safe for you. ??? Take gxrv-ayj-asfnoqc and prescription medicines only as told by [...] Assistance with quitting is available by contacting 5-252-ETIN-NOW. This is a free resource providing counseling, support, and referral. Or you may contact your personal physician. ComEd Suicide Prevention Lifeline: The National Suicide Prevention [...] range between ( 1.0 and 7.0 ) [place] #: 0.67 K/uL -- Normal range between ( 0.24 and 0.82 ) [place] #: 0.08 K/uL -- Normal range between ( 0.04 and 0.54 ) [place] %: 11.0 % -- Normal range between [...] was given the opportunity to ask questions. Patient/Foreign Exchange Position Clerk Name: Patient/Foreign Exchange Position Clerk Signature: Relationship to Patient: Clinician/Hospital Foreign Exchange Position Clerk Signature: Date: documented in this encounter Plan of Treatment Not on file documented as of this encounter Visit Diagnoses Not on filedocumented in this encounter
--- OUTSIDE RECORDS SUMMARY | 2025-02-02 13:26 | XMS_ITS | Referral Summary ---
Author Organization [employer] ([place], [place], [place], [place]) Address [address] [place] [address] Care Team Providers Care Military Education Coordinator Name Role Phone Unavailable Primary Care [...]
--- OUTSIDE RECORDS SUMMARY | 2025-02-02 13:26 | XMS_ITS | Encounter Summary ---
Author Organization [employer] ([place], [place], [place], [place]) Address [address] [place] [address] Care Team Providers Care Human Relations Professor Name Role Phone Unavailable Primary Care Provider Unavailabl e Encounter Details Date Type Department Care Team (Late st Contact Info) Description 02/15/2022 Transcribed Document [facility] [place] Medicine [facility] [place] [address] ProviderEvin MD [address] [place] [address] Social History Tobacco Use Types [...] Source : Measured Height Entry Format : [place] Height, Feet : 5 ft(Converted to: 152 cm, 60 Inch) Height, Inches : 3 Inch(Converted to: 0 ft 3 Inch, 7.62 cm) Clinical Height : 160.02 cm Weight Source : Standing scale Weight Entry Format : [place] Clinical Dosing Weight : 84.73 kg Weight, Pounds : 186.4 lb Body Surface Area (BSA) : 1.88 m2 Body Mass Index : 33.1 kg/m2 (HI) [place] Body Weight : 52 kg SABRINA ESPINOSA [...] SABRINA ESPINOSA RN - 02/15/2022 14:13 EDT [place] Suicide Severity Rating Scale (C-SSRS) CSSRS Past Month Wish to be : No CSSRS Past Month Suicidal Thoughts : No CSSRS Lifetime Suicide Behavior : No Suicide Severity Rating Score : 0 Suicide Severity Rating : No Additional Care Required at this time SABRINA ESPINOSA RN - 02/15/2022 14:13 EDT Psychosocial History Currently in Unsafe Situation : No SARBINA ESPINOSA RN - 02/15/2022 14:13 EDT Teaching/Learning [...] #2 Relationship : . Primary Language : [place] Preferred Communication Mode : Verbal Communication Barrier : None Electrical Installation Inspector Needed : No SABRINA ESPINOSA RN - [...] the text rendition version of the form. Electronically signed by Ellen Levine Conversion General Internal Medicine Doctor Cerner at 10/08/2022 11:25 PM CDT documented in this encounter Plan of Treatment Not on file documented as of this encounter Visit Diagnoses Not on filedocumented in this encounter
--- OUTSIDE RECORDS SUMMARY | 2025-02-02 13:27 | XMS_ITS | Encounter Summary ---
Author Organization [employer] ([place], [place], [place], [place]) Address [address] [place] [address] Care Team Providers Care Youth Development Specialist Name Role Phone Unavailable Primary Care Provider Unavailabl e Encounter Details Date Type Department Care Team (Late st Contact Info) Description 02/15/2022 Transcribed Document [facility] [place] [facility] [place] [address] ProviderEvin MD [facility] [place], [place] [id number] Social History Tobacco Use Types Packs/Day Years [...] MAGGIE BEDOYAO.B./Sex: 1955 Female Med Rec #: [id number] Physician: Armando MARTEL MD-OBG Financial #: [id number] Pt. Type: O Room/Bed: [facility]/1 Admit/Disch: 02/15/22 05:08:00 - Institution: [facility] [place] PreOp Case Times Entry 1 In Preop 02/15/22 13:35:00 Ready for Holding n/a Room Patient Ready for 02/15/22 14:18:00 Surgery Patient Out of Preop 02/15/22 15:45:00 Patient Out of n/a Holding Room Last Modified By: SABRINA ESPINOSA RN 02/15/22 16:30:40 S[facility] PreOp Case Times Audit 02/15/22 16:30:40 Custom Bike Builder: JUAN DIEGO Modifier: SCHROEJ <+> 1 Patient Out of Preop 02/15/22 14:20:38 Custom Bike Builder: JUAN DIEGO Modifier: SCHROEJ <+> 1 Patient Ready for Surgery Finalized By: SABRINA ESPINOSA RN Document Signatures Signed By: SABRINA ESPINOSA RN 02/15/22 16:30 Electronically signed by Glenn Levine Conversion Technician Terminal And Repeater Cerner at 10/08/2022 11:15 PM CDT documented in this encounter Plan of Treatment Not on file documented as of this encounter Visit Diagnoses Not on filedocumented in this encounter
--- OUTSIDE RECORDS SUMMARY | 2025-02-02 13:27 | XMS_ITS | Encounter Summary ---
Author Organization [employer] ([place], [place], [place], [place]) Address [address] [place] [address] Care Team Providers Care Loan Representative Name Role Phone Unavailable Primary Care Provider Unavailabl e Encounter Details Date Type Department Care Team (Late st Contact Info) Description 02/13/2022 Transcribed Document [facility] [place] [facility] [place] [address] ProviderEvin MD [address] [place] [address] Social History Tobacco Use Types [...] Source : Measured Height Entry Format : [place] Height, Feet : 5 ft(Converted to: 152 cm, 60 Inch) Height, Inches : 3 Inch(Converted to: 0 ft 3 Inch, 7.62 cm) Clinical Height : 160.02 cm Weight Source : Standing scale Weight Entry Format : [place] Clinical Dosing Weight : 84.73 kg Weight, Pounds : 186.4 lb Body Surface Area (BSA) : 1.88 m2 Body Mass Index : 33.1 kg/m2 (HI) [place] Body Weight : 52 kg Soco Page [...] Updated: 02/13/2022 11:05:36 EDT by Soco Page, KAREN) Infectious Disease History Does patient have symptoms [...] Soco Page RN - 02/13/2022 11:04 EDT [place] Suicide Severity Rating Scale (C-SSRS) CSSRS Past [...] #2 Relationship : . Primary Language : Mongolian Preferred Communication Mode : Verbal Communication Barrier : None Bankruptcy Assistant Needed : No Soco Page RN - [...]
--- OUTSIDE RECORDS SUMMARY | 2025-02-02 13:27 | XMS_ITS | Clinical Summary ---
Author Organization [facility] Address [address] [place] [address] Care Team Providers Care Chief Growth Officer Name Role Phone Alpesh Corbett MD Primary Care Provider [phone] Family History Medical History Relation Name Comments [...] of Treatment Not on file Care Teams Chief Growth Officer Relationship Specialty Start Date End Date Alpesh Corbett MD [address] [place] [address] PCP - General 11/05/20
--- OUTSIDE RECORDS SUMMARY | 2025-02-02 13:27 | XMS_ITS | Encounter Summary ---
Author Organization [employer] ([place], [place], [place], [place]) Address [address] [place] [address] Care Team Providers Care Casting Trucker Name Role Phone Unavailable Primary Care Provider Unavailabl e Encounter Details Date Type Department Care Team (Late st Contact Info) Description 02/15/2022 Transcribed Document [facility] Family Medicine [facility] [place] [address] ProviderEvin MD [facility] [place] [address] Social History Tobacco Use Types [...] left the operating room in satisfactory condition. /[id number] JoelMD ASA An/LEIA / ASA / ZE /[id number] documented in this encounter Plan of Treatment Not on file documented as of this encounter Visit Diagnoses Not on filedocumented in this encounter
--- OUTSIDE RECORDS SUMMARY | 2025-02-02 13:27 | XMS_ITS | Encounter Summary ---
Author Organization [employer] ([place], [place], [place], [place]) Address [address] [place] [address] Care Team Providers Care Automotive Accessory Installer Name Role Phone Unavailable Primary Care Provider Unavailabl e Encounter Details Date Type Department Care Team (Late st Contact Info) Description 02/15/2022 Transcribed Document [facility] [place] [facility] [place] [address] ProviderEvin MD [address] [place] [address] Social History Tobacco Use Types [...] taking prescription pain medicines. Medicines ??? Take bnbf-xas-escvgla and prescription medicines only as told by [...] urine clear or pale yellow. ? Take sglm-rou-jwagczv or prescription medicines. ? Eat foods that [...] provider. Document Revised: 05/24/2018 Document Reviewed: 07/10/2017 [employer] Patient Education ? 2020 [employer] Pharmacology General Anesthesia, Adult, Care After [...] activities are safe for you. ??? Take okbz-fqm-fgmzaxh and prescription medicines only as told by [...] provider. Document Revised: 02/24/2021 Document Reviewed: 09/23/2020 [employer] Patient Education ? 2021 [employer] documented in this encounter Plan of Treatment Not on file documented as of this encounter Visit Diagnoses Not on filedocumented in this encounter
--- OUTSIDE RECORDS SUMMARY | 2025-02-02 13:27 | XMS_ITS | Encounter Summary ---
Author Organization [employer] ([place], [place], [place], [place]) Address [address] [place] [address] Care Team Providers Care Mechanical Technologist Name Role Phone Unavailable Primary Care Provider Unavailabl e Encounter Details Date Type Department Care Team (Late st Contact Info) Description 02/15/2022 Transcribed Document [facility] [place] [facility] [place] [address] ProviderEvin MD [facility] [place], [place] [id number] Social History Tobacco Use Types Packs/Day Years Used Date Smoking Tobacco: Never Assessed Comments Unknown Sex and Gender Information Value Date Recorded Sex Assigned at Not on file Legal Sex Female 5:36 PM CDT Gender Identity Not on file Sexual Orientation Not on file documented as of this encounter Miscellaneous Notes * Cerner Conversion Note - Historical ProviderMD - 02/15/2022 4:07 PM CDT [facility] [place] PACU Summary Primary Physician: Armando MARTEL MD-OBG Finalized Date/Time: 02/15/22 16:45:40 Pt. Name: MAGGIE MCRAE D.O.B./Sex: 1955 Female Med Rec #: [id number] Physician: Armando MARTEL MD-OBG Financial #: [id number] Pt. Type: O Room/Bed: [facility]/1 Admit/Disch: 02/15/22 05:08:00 - Institution: [facility] Main OR PACU Case Times Entry 1 In PACU I 02/15/22 16:20:00 Ready for PACU 02/15/22 16:40:00 Discharge Discharge from PACU 02/15/22 16:40:00 I Last Modified By: VERONICA RAINES, RN 02/15/22 16:45:24 Finalized By: VERONICA RAINES, RN Document Signatures Signed By: VERONICA RAINES RN 02/15/22 16:45 Electronically signed by Julianna [facility] Conversion Manager Telemarketing Cerner at 10/08/2022 11:15 PM CDT documented in this encounter Plan of Treatment Not on file documented as of this encounter Visit Diagnoses Not on filedocumented in this encounter
--- OUTSIDE RECORDS SUMMARY | 2025-02-02 13:27 | XMS_ITS | Encounter Summary ---
Author Organization [employer] ([place], [place], [place]) Address [address] [place] [address] Care Team Providers Care Matrix Bath Attendant Name Role Phone Unavailable Primary Care Provider Unavailabl e Encounter Details Date Type Department Care Team (Late st Contact Info) Description 02/13/2022 Transcribed Document [facility] [place] [facility] [place] [address] ProviderEvin MD [address] [place] [address] Social History Tobacco Use Types [...] 11:25 EDT Electronically signed by Julianna, [facility] Conversion Inspector Wire Rope Cerner at 10/08/2022 11:14 PM CDT documented in this encounter Plan of Treatment Not on file documented as of this encounter Visit Diagnoses Not on filedocumented in this encounter
--- OUTSIDE RECORDS SUMMARY | 2025-02-02 13:27 | XMS_ITS | Patient Health Record ---
Author Organization [facility] Address [address] [facility] [address] [place] [address] Care Team Providers Care Welt Stitch Cleaner Name Role Phone Annemarie Pulido Unavailable [phone] Allergies Allergen (clinical drug ingredient) Drug/Non Drug [...] Status Risk Notes Problem Hormone replacement therapy (062641085) Counseling for estrogen replacement therapy (Z79.890) Active confirmed Hormone replacement therapy Problem Menopause (262352306) *Menopausal and female climacteric states (Code also, associated symptoms) (N95.1) Active confirmed Menopausal and female climacteric states Problem Gynecological examination abnormal (14755427263855 3) *Holistic Nutritionist exam with abnormal finding (Code also - abnormal finding(s) (Z01.411) Active confirmed Annual with abnormal findings Problem Gynecological examination normal (66790504239771 4) Cervical smear, as part of routine gynecological examination (Z01.419) Active confirmed Annual without abnormal findings Problem Confusional state (disorder) (350947245) Confusion state (F44.89) Active confirmed Sleep-related dissociative [...]
--- OUTSIDE RECORDS SUMMARY | 2025-02-02 13:27 | XMS_ITS | Encounter Summary ---
Author Organization [employer] ([place], [place], [place], [place]) Address [address] [place] [address] Care Team Providers Care Patrol Commander Name Role Phone Unavailable Primary Care Provider Unavailabl e Encounter Details Date Type Department Care Team (Late st Contact Info) Description 02/15/2022 Transcribed Document [facility] [place] [facility] [place] [address] ProviderEvin MD [facility] [place] [id number] Social History Tobacco Use Types Packs/Day Years [...] MCRAE D.O.B./Sex: 1955 Female Med Rec #: [id number] Physician: Armando MARTEL MD-OBG Financial #: [id number] Pt. Type: O Room/Bed: [facility]/1 Admit/Disch: 02/15/22 05:08:00 - Institution: [facility] Main OR PostOp Case Times Entry 1 In PACU II 02/15/22 16:40:00 Ready for PACU II 02/15/22 16:59:00 Discharge Discharge from PACU 02/15/22 16:59:00 II Last Modified By: Casandra Amezcua RN 02/15/22 16:58:33 Finalized By: Casandra Amezcua, RN Document Signatures Signed By: Casandra Amezcua RN 02/15/22 17:00 Electronically signed by Julianna [facility] Conversion Well Service Derrick Worker Cerner at 10/08/2022 11:18 PM CDT documented in this encounter Plan of Treatment Not on file documented as of this encounter Visit Diagnoses Not on filedocumented in this encounter
--- OUTSIDE RECORDS SUMMARY | 2025-02-02 13:27 | XMS_ITS | Clinical Summary ---
Author Organization [facility] Address [address] [place] [address] Care Team Providers Care Assistant Store Manager Sales Name Role Phone Andrey Kelsey MD Primary Care Provider Allergies Active Allergy Reactions Criticality Noted Date Comments Ampicillin Swelling 04/17/2024 Naproxen Rash Low 04/17/2024 Family History Medical History Relation Name Comments Breast cancer Daughter Breast cancer Maternal Aunt Ovarian cancer Neg Hx Relation Name Status Comments Daughter Maternal Aunt Social History Tobacco Use Types Packs/Day Years Used Date Smoking Tobacco: Never Assessed Abuse Screen Answer Date Recorded Unsafe at Home or Work/School Not on file Feels Threatened by Someone? Not on file 02/2023 Does Anyone Keep You from Co ntacting Others or Doint Things Outside the Home? Not on file 04/02/2023 Physical Sign of Abuse Present Not on file 1 Housing Stability Answer Date Recorded Current Living Arrangements Not on file 02/2023 Potentially Unsafe Housing Conditions Not on james e 04/02/2023 Family and Community Support Answer Geoffrey e Recorded Help with Day-to-Day Activities Not on file 04/02/2023 Lonely or Isolated Not on file 04/02/2023 Employment Answer Date Recorded Do you want help finding or keeping work or a aba b? Not on file 04/02/2023 Disabilities Answer Date Recorded Concentrating, Remembering, or Making Decisions Difficulty Not on file 04/02/2023 Doing Errands Independently Difficulty Not on fi le 04/02/2023 Education Answer Date Recorded Help with school or training? Not on file Preferred Language Not on file 04/02/2023 Comments No Sex and Gender Information Value Date Recorded Sex Assigned at Not on file Legal Sex Female 10:49 AM EDT Gender Identity Not on file Sexual Orientation Not on file Plan of Treatment Health Maintenance Due Date Last Done Comments ANNUAL PHYSICAL 1955 DXA SCAN 1955 HEPATITIS C SCREENING 1955 COLOGUARD 1998 COLON CANCER SCREENING 5 YEA R SIGMOIDOSCOPY 1998 COLONOSCOPY 1998 COLORECTAL CANCER SCREENING 1998 CT COLONOGRAPHY 1998 FECAL OCCULT BLOOD TEST 1998 FIT Testing (1 year) 1998 COVID-19 Vaccine (2023-07 5 season) 2024 04/18/2023, 05/03/2022, 01/25/2022, Additional history exists ZOSTER VACCINE (2 of 2) 05/21/2024 03/26/2024 INFLUENZA VACCINE 03/25/2025 03/19/2024, , 04/05/2022, Additional history exists MAMMOGRAM 04/17/2026 04/17/2024, 03/26, 04/13/2022, Additional history exists TDAP/TD VACCINES (2 - Td or Tdap) 09/26/2027 018 Pneumococcal Vaccine 50+ Completed 01/18/2022 Procedures Procedure Name Priority Date/Time Associated Diagnosis Comments MAMMO SCREENING DIGITAL TOMOSYNTHESIS BILATERAL W CAD Routine 04/17/2024 11:33 AM EDT Visit for screening mammogram from Last 3 Months or Most Recently Relevant to Health Maintenance Results * Mammo Screening Digital Tomosynthesis Bilateral With CAD (04/17/2024 11:33 AM EDT) Anatomical Region Laterality Modality Breast N/A Mammography 04/22/2024 2:25 PM EDT Impressions 04/22/2024 2:25 PM EDT Negative bilateral mammogram. RECOMMENDATION: Continue annual screening mammography. BI-RADS CATEGORY 1, NEGATIVE. CAD was utilized. The standard false-negative rate of mammography is between 10% and 25%. Complex patterns or increased breast density will markedly elevate the false-negative rate of mammography. A letter, in lay terminology, with the results of this exam will be mailed to the patient. This report was finalized on 04/22/2024 2:[address] Vilma Paz MD. Narrative 04/22/2024 2:25 PM EDT DIGITAL SCREENING MAMMOGRAM WITH TOMOSYNTHESIS HISTORY: Screening Mammography. Low dose full field digital breast tomosynthesis imaging was performed with 2D and 3D acquisitions consisting of bilateral CC and MLO views. Examination is compared to prior examination dating back to 11/29/2016. Examination is read in conjunction with computer aided detection. FINDINGS: There are scattered areas of fibroglandular density. No suspicious masses, microcalcifications or areas of architectural distortion are present. Tamiko Kolb APRN IM MAMMOGRAPHY ORDERABLES Final Result from Last 3 Months or Most Recently Relevant to Health Maintenance Insurance [facility] MEDICARE [facility]VANTAGE HMO Care Teams Assistant Store Manager Sales Relationship Specialty Start Date End Date Andrey Kelsey MD [address] [place] [address] [place] [address] [place] [id number] PCP - General Family Medicine 10/09/16
[2025-02-02 13:42] VITALS: BP 126/70; PULSE 76; RESP 18; O2SAT 95; BMI 32.2
--- NOTE | 2025-02-02 14:00 | EXP.PAIN.SOA ---
[facility] Disclaimer: The information contained in this section may have been updated after the patient was seen, as this information can be updated by other users. Medical History HLD (hyperlipidemia) HTN (hypertension) Vitamin E deficiency Surgical History History of arthroscopic knee surgery Family History Other Unknown family medical history Social History Smoking Status: Never smoker alcohol intake: current alcohol intake frequency: holidays/special occasions only counseling provided: none substance use type: denies use current occupational status: other Travel in the last 8 weeks?: None housing: house current occupational exposures/hazards: No caffeine: Yes PM Subjective & Objective Subjective Subjective:: Patient is a pleasant 69-year-old female who presents today for follow-up of her lumbar epidural steroid injection L4-L5 on 01/13/2025. Today she does state that she had 100% relief it was pretty much immediate and did last a full 2 weeks. Patient does still feel like it is helping currently just not as effective. Patient does state in the past she has done better when she has had multiple injections that over time it does progressively increase some length. Patient does state that she definitely noticed a big difference and was able to do more during that time. She states that even what she thought was knee pain was pretty much resolved following this procedure. Patient is prescribed diclofenac 75 mg twice a day from our office. She denies any side effects. Her Vitor has been reviewed and is appropriate. Review of Systems: General: No recent weight changes, no fever, no sleep disturbances Respiratory: No cough, no shortness of air, no recurring pulmonary infections Cardiovascular/peripheral vascular: No chest pain, no palpitations, no edema, no shortness of breath Gastrointestinal: No new onset incontinence, normal bowel movements reported Genitourinary: No new onset incontinence Musculoskeletal: Low back pain Psychiatric: [Normal mood/affect] Neurological: [Denies weakness in extremities], [denies balance issues] Pain at rest (0-10 scale): 6 Objective Objective:: Physical Exam: General: Alert and oriented x3, no acute distress, pleasant and cooperative Lungs: Respirations even and unlabored, symmetrical chest expansion Eyes: PERRL Musculoskeletal: Flexion and extension of lumbar [spine] somewhat guarded secondary to pain, [antalgic gait noted] Neurological: Speech clear, no gross sensory deficit Has patient had previous pain injection?: Yes Percent improvement in pain since last injection: 100% Conservative treatment options previously tried: Home exercise plan Length of treatment: Longer than 12 weeks Meds Home Medications and Allergies Home Medications ?Medication ?Instructions ?Recorded ?Confirmed ?Type escitalopram oxalate 10 mg tablet 10 mg PO DAILY 12/07/22 02/02/25 History hydrochlorothiazide 12.5 mg tablet 12.5 mg PO DAILY 12/07/22 02/02/25 History vitamin E (dl, acetate) 180 mg 180 mg PO DAILY 12/07/22 02/02/25 History (400 unit) capsule ibuprofen 800 mg tablet 800 mg PO TID OA pain #90 tabs 06/12/24 02/02/25 Rx calcium 315 mg (as 1 tab PO DAILY 09/23/24 02/02/25 History citrate)-vitamin D3 5 mcg (200 unit) tablet (Calcium Citrate + D) digestive enzymes 1 cap PO DAILY 09/23/24 02/02/25 History docusate sodium 100 mg capsule 100 mg PO DAILY PRN Laxative Effect 09/23/24 02/02/25 History (Dulcolax Stool Softener (docusate)) lansoprazole 30 mg capsule,delayed 30 mg PO DAILY 09/23/24 02/02/25 History release linaclotide 290 mcg capsule 290 mcg PO DAILY #30 caps 09/23/24 02/02/25 Rx (Linzess) psyllium husk 0.4 gram capsule 0.8 g PO DAILY 09/23/24 02/02/25 History (Metamucil) rosuvastatin 20 mg tablet 20 mg PO DAILY 09/23/24 02/02/25 History trazodone 50 mg tablet 50 mg PO HS 09/23/24 02/02/25 History valsartan 160 mg tablet 160 mg PO DAILY 09/23/24 02/02/25 History diclofenac sodium 75 mg 75 mg PO BID #28 tabs 12/04/24 02/02/25 Rx tablet,delayed release New Prescriptions to Start Prescriptions: Allergies Allergy/AdvReac Type Severity Reaction Status Date / Time ampicillin Allergy Verified 09/23/24 11:07 naproxen (From Naprosyn) Allergy Verified 09/23/24 11:07 Assessment and Plan *Assessment and plan (1) Lumbar radiculopathy: Status: Acute Category: Medical Code(s): M54.16 - Radiculopathy, lumbar region (2) Degenerative disc disease: Status: Acute Category: Medical Plan I did discuss with the patient in future we will definitely plan on repeating this injection as she did get significant relief that gave 100% improvement for a full 2 weeks. Patient is starting to notice a little bit more pain ongoing. We will have her follow back up in 7 weeks for reevaluation of symptoms and plan of care. Patient has been instructed to contact the clinic with any concerns before the next appointment. Dr. Bucio has reviewed this note and agrees with this plan of care. This note was dictated using voice recognition software and make contain errors or omissions. All injections are used with Lidocaine, Bupivacaine and dexamethasone. Occasionally urine drug screen is needed to verify patient's compliance with our office pain contract. This is ordered based off specific treatments related to chronic pain with the potential to abuse certain medications.
== END 2025-02-02 23:59 | disposition home or self-care (01) ==
LOC: SC.PAIN 13:23
PROVIDERS: PCP Nurse Practitioner Family; Visit Provider Nurse Practitioner Family
DX: M54.16 Radiculopathy, lumbar region (principal); Z79.1 Long term (current) use of non-steroidal anti-inflammatories (NSAID)
CPT/HCPCS: 99212; G0463

== ENCOUNTER 2025-04-21 08:13 | Day surgery (SDC) | payer MEDICARE, SELFPAY ==
[2025-04-21 08:24] VITALS: BP 123/71; PULSE 88; RESP 18; O2SAT 98; BMI 29.4
[2025-04-21] MEDS: DEXAMETHASONE 10MG/ML 1ML VIAL 10 MG (08:52)
[2025-04-21 08:53] VITALS: BP 115/61; PULSE 80; RESP 18; O2SAT 97
[2025-04-21 08:54] VITALS: BP 115/61; PULSE 71; RESP 18; O2SAT 97
[2025-04-21 08:56] VITALS: BP 116/67; PULSE 94; RESP 16; O2SAT 100
--- NOTE | 2025-04-21 08:57 | P.PCN_ITS ---
Procedure Date: 04/21/25 Time: 08:30 Anesthesiologist:: Wilson Villavicencio CRNA Complications:: None Pre-procedure Diagnosis:: Degenerative disc lumbar spine multilevels. Lumbar radiculopathy. Post-procedure Diagnosis:: Same Indications for Procedure:: This patient is a very pleasant 69-year-old female who comes our clinic today for lumbar epidural steroid injection. Patient describes low lumbar back pain as well as bilateral hip and leg radicular symptoms at times. She rates her pa in 01/01. She reports responding very well to lumbar epidural steroid injections in the past. Procedure Details:: Procedure: Lumbar epidural steroid injection under fluoroscopy Informed consent was obtained and the risks and benefits of the procedure were explained to the patient. The patient was taken to the procedure room and noninvasive monitors placed, including noninvasive blood pressure cuff and pulse oximeter. The back was viewed using C-arm Fluoroscopy and prepped using Chloraprep as a cleansing solution and the L4-L5 interspace was palpated. Skin and subcutaneous tissues were anesthetized using lidocaine 1.5% and a 25-gauge needle. After this, an 18-gauge Touhy epidural needle was placed into the L4-L5 interspace and advanced using fluoroscopic guidance and loss of resistance to air until the epidural space was encountered. After confirmation of needle placement in the epidural space, with dye, a solution containing normal saline, 3 mL and dexamethasone 10 mg were incrementally injected into the lumbar epidural space. The patient tolerated the procedure well with no complications. The patient was observed in the Pain Clinic and then discharged home neurologically intact. Plan and Disposition:: Patient was discharged without incident.
== END 2025-04-21 08:56 | disposition home or self-care (01) ==
PROVIDERS: PCP Nurse Practitioner Family; Visit Provider Nurse Anesthetist, Certified Registered
DX: M51.16 Intervertebral disc disorders with radiculopathy, lumbar region (principal); I10 Essential (primary) hypertension; E78.5 Hyperlipidemia, unspecified; F32.A Depression, unspecified; Z88.1 Allergy status to other antibiotic agents; Z88.6 Allergy status to analgesic agent; Z79.899 Other long term (current) drug therapy
CPT/HCPCS: 62323; J1100